=== PATIENT | female | born 1950 | race Two or more races ===

== ENCOUNTER 2019-04-02 21:27 | Inpatient (IN) | payer MEDICARE, MEDICAID ==
[~2019-04-02] VITALS: Ht 154.9 cm; Wt 44.5 kg
[2019-04-02 21:29] VITALS: BP 145/71
--- NOTE | 2019-04-02 22:30 | Diagnostic Imaging Report ---
Indication: Altered mental status Technique: Contiguous 5 mm thick transaxial imaging of the head obtained in a Siemens Sensation [address] scanner. Soft tissue and bone windows generated. Automatic Exposure Control was utilized. Total Dose length Product (DLP): [address] Dose Index Volume (CTDIvol): 70.38 mGy Comparison: none Findings: There is mild prominence of the ventricles, basal cisterns, and cerebral sulci consistent with atrophy. Mild, nonspecific, white matter hypoattenuation is noted throughout the brain consistent with chronic small vessel disease. There is a suggestion of a mild hypodense extra-axial collections over the cerebral convexities bilaterally. These may be old subdural hematomas. There is no associated mass effect or edema. There is no midline shift, edema, acute hemorrhage, mass effect are identified. Bones are unremarkable. Right globe is abnormal with peripheral thickening and absence of the lens. Correlate clinically. Impression: No acute intracranial bleed, mass effect or edema. 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 (Minor discrepancy with stat rad) Mild atrophy of the brain. Nonspecific white matter hypoattenuation probably due to chronic small vessel disease. [facility] has communicated the preliminary results to the Emergency Department. There are no significant discrepancies. The CT scanner at [facility] is accredited by the [employer] and the scans are performed using dose optimization techniques as appropriate to a performed exam including Automatic Exposure control.
[2019-04-02 22:32] LABS: BASOPHILS % (AUTO) 0.8 % (0.0-2.0); EOSINOPHILS % (AUTO) 0.5 % (0.0-3.0); HEMATOCRIT 34.4 % (37.0-47.0); HEMOGLOBIN 12.7 G/DL (12.0-16.0); LYMPHOCYTES % (AUTO) 25.1 % (20.0-45.0); MEAN CORPUSCULAR VOLUME 80 FL (80-99); MONOCYTES % (AUTO) 5.5 % (1.0-10.0); NEUTROPHILS % (AUTO) 68.1 % (45.0-75.0); PLATELET COUNT 147 K/UL (150-450); RED BLOOD COUNT 4.31 M/UL (4.20-5.40); RED CELL DISTRIBUTION WIDTH 10.3 % (11.6-14.8); WHITE BLOOD COUNT 5.1 K/UL (4.8-10.8)
[2019-04-02] MEDS ORDERED: LORazepam Inj 2mg/ml 1ml ONE (22:53)
[2019-04-02 22:55] LABS: ALANINE AMINOTRANSFERASE 26 U/L (12-78); ALBUMIN 3.7 G/DL (3.4-5.0); ALBUMIN/GLOBULIN RATIO 1.1 (1.0-2.7); ALKALINE PHOSPHATASE 84 U/L (46-116); ANION GAP 16 mmol/L (5-15); ASPARTATE AMINO TRANSFERASE 11 U/L (15-37); BILIRUBIN,TOTAL 0.7 MG/DL (0.2-1.0); BLOOD UREA NITROGEN 20 mg/dL (7-18); CALCIUM 9.2 MG/DL (8.5-10.1); CARBON DIOXIDE 23 MMOL/L (21-32); CHLORIDE 101 MMOL/L (98-107); CKMB 1.2 NG/ML (0.0-3.6); CREATINE KINASE 43 U/L (26-308); CREATININE 1.2 MG/DL (0.55-1.30); POTASSIUM 3.5 MMOL/L (3.5-5.1); SODIUM 139 MMOL/L (136-145)
[2019-04-02 23:00] VITALS: BP 132/103
[2019-04-02] MEDS ORDERED: levETIRAcetam 1,000mg/NS100ml 100 ML IVPB ONE (23:00)
[2019-04-02] MEDS ORDERED: LORazepam Inj 2mg/ml 1ml IV ONE (23:00)
[2019-04-02] MEDS ORDERED: Insulin Human Regular 100units/ml 3ml IV ONE (23:30)
[2019-04-03] VITALS (27 sets, daily range): BP systolic 68–113; BP diastolic 19–67
[2019-04-03 00:47] LABS: APPEARANCE,URINE CLEAR; BILIRUBIN, URINE NEGATIVE (NEGATIVE); COLOR,URINE PALE YELLOW; GLUCOSE, URINE (UA) 4+ (NEGATIVE); KETONES,URINE 3+ (NEGATIVE); LEUKOCYTE ESTERASE ,URINE NEGATIVE (NEGATIVE); NITRITE,URINE NEGATIVE (NEGATIVE); PH,URINE 5 (4.5-8.0); PROTEIN,URINE NEGATIVE (NEGATIVE); UROBILINOGEN,URINE NORMAL MG/DL (0.0-1.0)
[2019-04-03] MEDS ORDERED: METFORMIN HCL500 M1 ORAL (00:47)
[2019-04-03] MEDS: D5 1/2NS 1,000 ML IV SCH ×2 (03:30→05:09)
--- NOTE | 2019-04-03 03:32 | Emergency Room Report ---
History of Present Illness General Chief Complaint: Abnormal Labs Source: Family Member, EMS Present Illness HPI 68-year-old female presents ED for evaluation. Brought in by EMS from home. Granddaughter at bedside states that patient has been altered since this afternoon. Appears confused. Has bruising to her face. States that she fell a few days ago. Accu-Chek critically high. History of diabetes was recently switch from insulin to metformin. No repeated fevers or chills. No reported chest pain or shortness of breath. No other aggravating or relieving factors. No other associated symptoms Allergies: Coded Allergies: No Known Allergies (Unverified , 04/02/19) Patient History Past Medical History: DM, HTN Past Surgical History: none Pertinent Family History: none Social History: Denies: smoking, alcohol use, drug use Last Menstrual Period: n/a Now: No Immunizations: UTD Reviewed Nursing Documentation: PMH: Agreed; PSxH: Agreed Nursing Documentation-PMH Past Medical History: No History, Except For Hx Hypertension: Yes Review of Systems All Other Systems: limited Physical Exam Vital Signs Date Time Temp Pulse Resp B/P (MAP) Pulse Ox O2 Delivery O2 Flow Rate FiO2 04/02/19 21:22 94 16 145/71 (95) 99 Room Air 04/02/19 23:00 3.0 04/03/19 01:33 98.2 Sp02 EP Interpretation: reviewed, normal General Appearance: cachetic, lethargic, other Head: normocephalic, other - brusing to face Eyes: bilateral eye normal inspection, bilateral eye PERRL ENT: normal ENT inspection Neck: normal inspection Respiratory: chest non-tender, lungs clear, normal breath sounds, speaking full sentences Cardiovascular #1: regular rate, rhythm, no edema Gastrointestinal: normal bowel sounds, non tender, soft, non-distended, no guarding, no rebound Rectal: deferred Genitourinary: no CVA tenderness Musculoskeletal: normal inspection Neurologic: other - lethargic Psychiatric: other - lethargic Skin: other - see nursing notes Lymphatic: normal inspection Procedures Critical Care Time Critical Care Time i. I feel this is a highly complex case requiring extensive working including EKG/Rhythm strip, Xray/CT/US, Blood/urine lab work, repeat exams while in ED, and administration of strong opiates/narcotics for pain control, admission to hospital or close patient follow up. Total time: 75 min bedside evaluation and treatment excludes procedures (EKG). Reason for critical care: AMS, DKA, seizures Possible complications: hypotension, hypertension, [place], shock, arrhythmias, metabolic acidosis, end organ damage, respiratory failure. Interventions: Labs, IV fluids, EKG, chest x-ray, CT head, Keppra, Ativan, insulin bolus, insulin drip Course: Presented with altered mental status. Accu-Chek critically high. Bruising to face. CT head negative. Glucose greater than 500 with acidosis. Likely DKA. Patient had new onset seizure in ED. Given Ativan and Keppra. Insulin bolus and insulin drip started Consultations: nursing staff, EMS, family Performed by: Dr Manning Tolerated well condition = critical j. because of unstable vital signs this patient had a condition that could potentially threaten life or limb. I feel this is a critical patient who required my full attention while patient was considered critical. Total Critical Care Time excluding procedures was greater than 75 minutes Medical Decision Making Diagnostic Impression: Primary Impression: DKA (diabetic ketoacidoses) Qualified Codes: E13.10 - Other specified diabetes mellitus with ketoacidosis without coma Additional Impressions: Altered mental state Qualified Codes: R41.82 - Altered mental status, unspecified New onset seizure ER Course Hospital Course 68-year-old female presenting to ED with altered mental status, glucometer critically high Differential diagnoses include: ETOH/drug ingestion, sepsis, DKA Clinical course Patient placed on stretcher. On cardiac rehab nurse. After initial history and physical I ordered labs, IVFS, EKG, CXR, CT Head Labs-glucose greater than 500, anion gap elevated, bicarbonate low, no leukocytosis, hb/hct stable EKG - NSR, twave inversions in lateral leads Chest x-ray unremarkable CT Head - no acute process. heterogenous material noted in posterior aspect of R globe. mass vs hemorrhage. lens absent Tonic-clonic seizure in ED. Witnessed by nursing. Granddaughter states that there is been no prior seizure activity for this patient. Given Ativan and Keppra IV. insulin bolus given, insulin drip started Case discussed with Dr. Guevara and he agreed to accept the patient to his service for further care and support i. I feel this is a highly complex case requiring extensive working including EKG/Rhythm strip, Xray/CT/US, Blood/urine lab work, repeat exams while in ED, and administration of strong opiates/narcotics for pain control, admission to hospital or close patient follow up. j. because of unstable vital signs this patient had a condition that could potentially threaten life or limb. I feel this is a critical patient who required my full attention while patient was considered critical. Total Critical Care Time excluding procedures was greater than 75 minutes diagnosis - DKA , AMS, new onset seizures admitted to ICU in critical condition Labs Test 04/02/19 22:00 04/02/19 22:55 04/03/19 00:37 White Blood Count 5.1 K/UL (4.8-10.8) Red Blood Count 4.31 M/UL (4.20-5.40) Hemoglobin 12.7 G/DL (12.0-16.0) Hematocrit 34.4 % (37.0-47.0) Mean Corpuscular Volume 80 FL (80-99) Mean Corpuscular Hemoglobin 29.4 PG (27.0-31.0) Mean Corpuscular Hemoglobin Concent 36.9 G/DL (32.0-36.0) Red Cell Distribution Width 10.3 % (11.6-14.8) Platelet Count 147 K/UL (150-450) Mean Platelet Volume 8.0 FL (6.5-10.1) Neutrophils (%) (Auto) 68.1 % (45.0-75.0) Lymphocytes (%) (Auto) 25.1 % (20.0-45.0) Monocytes (%) (Auto) 5.5 % (1.0-10.0) Eosinophils (%) (Auto) 0.5 % (0.0-3.0) Basophils (%) (Auto) 0.8 % (0.0-2.0) Sodium Level 139 MMOL/L (136-145) Potassium Level 3.5 MMOL/L (3.5-5.1) Chloride Level 101 MMOL/L (98-107) Carbon Dioxide Level 23 MMOL/L (21-32) Anion Gap 16 mmol/L (5-15) Blood Urea Nitrogen 20 mg/dL (7-18) Creatinine 1.2 MG/DL (0.55-1.30) Estimat Glomerular Filtration Rate 44.8 mL/min (>60) Glucose Level 599 MG/DL (74-106) Lactic Acid Level 1.20 mmol/L (0.4-2.0) Calcium Level 9.2 MG/DL (8.5-10.1) Total Bilirubin 0.7 MG/DL (0.2-1.0) Aspartate Amino Transf (AST/SGOT) 11 U/L (15-37) Alanine Aminotransferase (ALT/SGPT) 26 U/L (12-78) Alkaline Phosphatase 84 U/L (46-116) Total Creatine Kinase 43 U/L (26-308) Creatine Kinase MB 1.2 NG/ML (0.0-3.6) Creatine Kinase MB Relative Index 2.7 Troponin I 0.000 ng/mL (0.000-0.056) Pro-B-Type Natriuretic Peptide 186 pg/mL (0-125) Total Protein 7.1 G/DL (6.4-8.2) Albumin 3.7 G/DL (3.4-5.0) Globulin 3.4 g/dL Albumin/Globulin Ratio 1.1 (1.0-2.7) Acetone Level Positive-small (NEGATIVE) Arterial Blood pH 7.294 (7.350-7.450) Arterial Blood Partial Pressure CO2 32.4 mmHg (35.0-45.0) Arterial Blood Partial Pressure O2 167.8 mmHg (75.0-100.0) Arterial Blood HCO3 15.4 mmol/L (22.0-26.0) Arterial Blood Oxygen Saturation 98.5 % (95-100) Arterial Blood Base Excess -10.0 (-2-2) Britton Test Positive Urine Color Pale yellow Urine Appearance Clear Urine pH 5 (4.5-8.0) Urine Specific [place] 1.010 (1.005-1.035) Urine Protein Negative (NEGATIVE) Urine Glucose (UA) 4+ (NEGATIVE) Urine Ketones 3+ (NEGATIVE) Urine Blood Negative (NEGATIVE) Urine Nitrite Negative (NEGATIVE) Urine Bilirubin Negative (NEGATIVE) Urine Urobilinogen Normal MG/DL (0.0-1.0) Urine Leukocyte Esterase Negative (NEGATIVE) EKG Diagnostic Results Rate: normal Rhythm: NSR ST Segments: other - twave inversions in lateral leads ASA given to the pt in ED: No Rhythm Strip Diag. Results EP Interpretation: yes Rhythm: NSR, no PVC's, no ectopy Chest X-Ray Diagnostic Results Chest X-Ray Diagnostic Results : Chest X-Ray Ordered: Yes # of Views/Limited/Complete: 1 View Indication: Other EP Interpretation: Yes Interpretation: no consolidation, no effusion, no pneumothorax, no acute cardiopulmonary disease Impression: No acute disease Electronically Signed by: Electronically signed by Phil Manning MD CT/MRI/US Diagnostic Results CT/MRI/US Diagnostic Results : Imaging Test Ordered: CT Head Impression CT HEAD Without Contrast: No acute intracranial process. Lobulated thickening from hemorrhage or mass lesion in the posterior aspect of the right globe. The right lens is absent. Last Vital Signs Date Time Temp Pulse Resp B/P (MAP) Pulse Ox O2 Delivery O2 Flow Rate FiO2 04/03/19 02:37 98.2 100 15 105/63 98 Room Air 04/03/19 01:33 2.0 Status: improved Disposition: ADMITTED INPATIENT Condition: Critical Referrals: NON PHYSICIAN (PCP) Phil Manning MD Apr 03, 2019 03:32
[2019-04-03 04:29] LABS: ALANINE AMINOTRANSFERASE 21 U/L (12-78); ALKALINE PHOSPHATASE 70 U/L (46-116); ANION GAP 9 mmol/L (5-15); ASPARTATE AMINO TRANSFERASE 14 U/L (15-37); BILIRUBIN,TOTAL 0.5 MG/DL (0.2-1.0); BLOOD UREA NITROGEN 13 mg/dL (7-18); CALCIUM 8.2 MG/DL (8.5-10.1); CARBON DIOXIDE 24 MMOL/L (21-32); CHLORIDE 113 MMOL/L (98-107); CREATININE 0.8 MG/DL (0.55-1.30); POTASSIUM 2.8 MMOL/L (3.5-5.1); SODIUM 146 MMOL/L (136-145)
[2019-04-03] MEDS ORDERED: D5 1/2NS w/KCl 40meq 1000ml 1,000 ML IV SCH (04:45)
[2019-04-03] MEDS ORDERED: Insulin Rate Change 1 Each MISC PRN (06:45)
[2019-04-03] MEDS ORDERED: Insulin Human Regular 100units/ml 3ml IV PRN ×2 (06:45)
[2019-04-03 07:33] LABS: ANION GAP 11 mmol/L (5-15); BLOOD UREA NITROGEN 10 mg/dL (7-18); CALCIUM 7.9 MG/DL (8.5-10.1); CARBON DIOXIDE 21 MMOL/L (21-32); CHLORIDE 113 MMOL/L (98-107); CREATININE 0.7 MG/DL (0.55-1.30); SODIUM 145 MMOL/L (136-145)
[2019-04-03] MEDS ORDERED: LORazepam Inj 2mg/ml 1ml IV PRN (08:00)
[2019-04-03] MEDS ORDERED: D5 1/2NS w/KCl 20mEq 1,000 ML IV SCH (08:00)
--- NOTE | 2019-04-03 09:15 | History and Physical Report ---
DATE OF ADMISSION: 04/02/2019 CHIEF COMPLAINT: Altered mental status, seizures, and diabetic ketoacidosis. HISTORY OF PRESENT ILLNESS: The patient is a pleasant 68-year-old female. She has a history of diabetes and seizure disorder, was brought in by family members with complaints of altered mental status. According to family members, they believe she has not been taking her medications for the last two days. In the ER, she apparently had two seizures. She was noted to be in DKA. She was started on insulin drip and is now admitted to intensive care unit. She is currently sedated as she did receive Ativan for her seizures. PAST MEDICAL HISTORY: As above. PAST SURGICAL HISTORY: None. CURRENT MEDICATIONS: Reconciled and reviewed. ALLERGIES: None. FAMILY HISTORY: Significant for diabetes. SOCIAL HISTORY: Negative for tobacco, ethanol, or drugs. REVIEW OF SYSTEMS: Unobtainable as the patient is currently sleeping and difficult to arouse after receiving Ativan. PHYSICAL EXAMINATION: VITAL SIGNS: Temperature 97.4, pulse 100, respirations 21, and blood pressure 113/67. GENERAL: The patient is a well-developed, thin female, in no apparent distress. HEART: Regular rate and rhythm. LUNGS: Clear. ABDOMEN: Soft, nontender, and nondistended. EXTREMITIES: Without clubbing, cyanosis, or edema. LABORATORY DATA: Labs showed sodium 139, potassium 3.5, chloride 101, bicarb 23, BUN 20, and creatinine 1.2. Glucose is 600. Lactic acid was 1.2. ASSESSMENT: This is a 68-year-old female admitted with complaints of diabetic ketoacidosis and seizures, possibly secondary to uncontrolled diabetes. PLAN: 1. Continue insulin drip. 2. Monitor electrolytes. 3. Continue IV hydration. 4. Continue Keppra. 5. Plan of care was discussed with the patient's family. Sang Vieira M.D. DR: ERICKA JOB#: [id number] CC:
[2019-04-03] MEDS: Pantoprazole Inj IVP SCH (10:25)
[2019-04-03] MEDS: Levemir Flexpen SUBQ SCH ×2 (10:27→20:14)
[2019-04-03] MEDS: levETIRAcetam 500mg/NS100ml 100 ML IVPB SCH ×2 (10:35→20:14)
--- NOTE | 2019-04-03 12:00 | Diagnostic Imaging Report ---
Indication: Dyspnea Comparison: None A single view chest radiograph was obtained. Findings: No definite infiltrate or pulmonary vascular congestion identified. The heart is enlarged. The aorta is mildly enlarged consistent with atherosclerotic vascular disease. The bones are osteopenic. Impression: No acute disease
[2019-04-03 12:15] LABS: ANION GAP 8 mmol/L (5-15); BLOOD UREA NITROGEN 10 mg/dL (7-18); CALCIUM 8.1 MG/DL (8.5-10.1); CARBON DIOXIDE 24 MMOL/L (21-32); CHLORIDE 112 MMOL/L (98-107); CREATININE 0.7 MG/DL (0.55-1.30); POTASSIUM 2.8 MMOL/L (3.5-5.1); SODIUM 145 MMOL/L (136-145)
[2019-04-03] MEDS ORDERED: NovoLOG Insulin Flexpen SUBQ SCH (16:50)
[2019-04-03] MEDS: NovoLOG Insulin Flexpen SUBQ SCH ×2 (17:50→20:15)
--- NOTE | 2019-04-03 18:15 | Consultation ---
DATE OF CONSULTATION: 04/03/2019 ENDOCRINOLOGY CONSULTATION CONSULTING PHYSICIAN: Hernesto Byrne M.D. REFERRING PHYSICIAN: Mark Guevara M.D. REASON FOR CONSULTATION: DKA. HISTORY OF PRESENT ILLNESS: The patient is a 68-year-old female with history of diabetes, on metformin therapy, presents to the hospital by paramedics with altered mental status and weakness. Granddaughter noted altered mental status yesterday afternoon though the patient has been feeling dizzy for a few days, had a fall and has a bruise on her face. Accu-Chek was critically elevated at home. Previously, the patient was on insulin and recently switched to metformin. No fever or chills. Upon presentation, he was noted to be in diabetic ketoacidosis with a positive acetone level as well as anion gap of 16. The patient was admitted to the ICU and started on insulin drip. Endocrinology was consulted. PAST MEDICAL HISTORY: 1. Diabetes. 2. Hypertension. PAST SURGICAL HISTORY: None. FAMILY HISTORY: Noncontributory. SOCIAL HISTORY: No smoking, alcohol, or drug use. REVIEW OF SYSTEMS: Difficult to obtain. PHYSICAL EXAMINATION: GENERAL: The patient is lethargic. VITAL SIGNS: Blood pressure 145/71, pulse 94, respiratory rate of 18, and temperature of 98. HEENT: Pupils reactive to light. Sclerae is nonicteric. NECK: No JVD. HEART: Regular. LUNGS: Clear. ABDOMEN: Positive bowel sounds. EXTREMITIES: Trace edema. LABORATORY DATA: Sodium 139, potassium 3.5, chloride 101, bicarb 24, BUN 20, and creatinine 1.2. Anion gap of 16. Glucose 599. Lactic acid negative. WBC 5, hemoglobin 12, hematocrit 34.4, and platelets of 147,000. IMPRESSION: 1. DKA, mild. 2. Diabetes, out of control. PLAN: 1. Continue insulin drip for now until the anion gap closes. 2. Follow the electrolytes and replete accordingly. 3. Once the anion gap is closed, we will start the patient on basal bolus insulin regimen using Levemir and NovoLog insulin. Hypoglycemia protocol is ordered. I will follow the patient closely during the hospital stay. Thank you, Dr. Guevara, for the courtesy of this consultation. Hernesto Byrne M.D. DR: TAMI JOB#: [id number] CC: [place]
--- NOTE | 2019-04-03 20:45 | Consultation ---
DATE OF CONSULTATION: 04/02/2019 CARDIOLOGY CONSULTATION CONSULTING PHYSICIAN: Mark Guevara M.D. REQUESTING PHYSICIAN: Sang Vieira M.D. REASON FOR CONSULTATION: Acute myocardial ischemia in the setting of diabetic ketoacidosis. HISTORY OF PRESENT ILLNESS: This is a 68-year-old female, who is brought into the hospital emergency room by paramedics from home. The patient apparently has been increasingly withdrawn and confused and lethargic this afternoon. She apparently fell a few days ago and was found to have bruises over the left side of her face. The patient says she tripped and denies loss of consciousness. The patient was recently switched from insulin to metformin for management of her diabetes. She has not complained of chest pain or shortness of breath. In the emergency room, she had a witnessed seizure of tonoclonic type. She was given antiseizure therapy and had a CAT scan of the brain that revealed no acute process. She is to be admitted to the intensive care unit. I have been asked to assist with cardiovascular care. PAST MEDICAL HISTORY: Includes type 2 diabetes mellitus, hypertension with hypertensive heart disease, and osteoarthritis. PHYSICAL EXAMINATION: VITAL SIGNS: Blood pressure 113/67, pulse 100, respirations 21, and afebrile. GENERAL: Thin and frail, bruising obvious over the left face from nose to chin. HEENT: There is no difficulty with jaw movements. NECK: Supple. LUNGS: Clear. CARDIAC: Regular rhythm and rate. Normal S1, S2 with a fourth heart sound. ABDOMEN: Soft and nontender. EXTREMITIES: Good pulses. No edema. NEUROLOGIC: Reveals depressed affect and response time, but no focality. LABORATORY DATA: Reviewed. EKG with sinus rhythm and nonspecific ST-T wave changes. IMPRESSION: 1. Diabetic ketoacidosis. 2. Acute myocardial ischemia. 3. New onset seizures. 4. Recent fall with facial trauma. 5. Dehydration. 6. Hyponatremia. 7. . 8. Hypokalemia. 9. Mild protein-calorie malnutrition. 10. Type 2 diabetes mellitus, poorly controlled. 11. Metabolic encephalopathy. PLAN: 1. Continue Keppra. 2. Hypotonic IV fluid hydration. 3. Potassium replacement. 4. Check magnesium. 5. Insulin drip with subsequent transition to long-acting insulin. 6. Protein supplement. 7. Consider further imaging of the face if symptoms warrant. 8. DVT prophylaxis. Mark Guevara M.D. DR: PARAMJIT JOB#: [id number] CC:
[2019-04-04] VITALS (21 sets, daily range): BP systolic 95–125; BP diastolic 52–75
[2019-04-04] MEDS: NovoLOG Insulin Flexpen SUBQ SCH ×5 (00:26→16:45)
--- NOTE | 2019-04-04 06:50 | General Progress Note ---
Assessment/Plan Problem List: (1) New onset seizure ICD Codes: R56.9 - Unspecified convulsions SNOMED: 36402709, 32877799 (2) DKA (diabetic ketoacidoses) ICD Codes: E11.10 - Type 2 diabetes mellitus with ketoacidosis without coma SNOMED: 815126222, [id number] Qualifiers: Qualified Codes: E13.10 - Other specified diabetes mellitus with ketoacidosis without coma (3) Altered mental state ICD Codes: R41.82 - Altered mental status, unspecified SNOMED: 259685891, 89951608 Qualifiers: Qualified Codes: R41.82 - Altered mental status, unspecified Assessment/Plan: DKA resolved glucose values are stable continue Levemir 6 units bid continue NISS every 4 hours Subjective Allergies: Coded Allergies: No Known Allergies (Unverified , 04/02/19) Subjective events noted glucose values stable off insulin gtt Item Value Date Time Bedside Blood Glucose 99 mg/dl 04/04/19 0500 Bedside Blood Glucose 122 mg/dl H 04/04/19 0100 Bedside Blood Glucose 183 mg/dl H 04/03/19 2100 Bedside Blood Glucose 167 mg/dl H 04/03/19 1750 Bedside Blood Glucose 147 mg/dl H 04/03/19 1212 Bedside Blood Glucose 181 mg/dl H 04/03/19 1033 Bedside Blood Glucose 191 mg/dl H 04/03/19 0600 Objective Last 24 Hour Vital Signs Date Time Temp Pulse Resp B/P (MAP) Pulse Ox O2 Delivery O2 Flow Rate FiO2 04/04/19 06:00 74 13 99/52 (68) 97 04/04/19 05:00 87 13 119/65 (83) 96 04/04/19 04:00 Room Air 04/04/19 04:00 99.2 80 12 111/58 (75) 98 04/04/19 04:00 77 04/04/19 03:00 84 12 113/64 (80) 98 04/04/19 02:00 85 11 95/60 (72) 98 04/04/19 01:00 86 11 107/58 (74) 97 04/04/19 00:00 Room Air 04/04/19 00:00 84 04/04/19 00:00 98.6 85 10 98/52 (67) 97 04/03/19 23:00 93 10 89/49 (62) 97 04/03/19 22:03 90 11 93/53 (66) 97 04/03/19 22:01 91 11 81/52 (62) 97 04/03/19 22:00 91 11 81/52 (62) 97 04/03/19 21:43 90 14 87/50 (62) 98 04/03/19 21:41 87 18 73/47 (56) 98 04/03/19 21:30 85 12 71/47 (55) 97 04/03/19 21:05 87 13 81/46 (58) 97 04/03/19 21:00 88 12 82/48 (59) 97 04/03/19 20:00 98.4 88 12 101/54 (70) 97 04/03/19 20:00 Room Air 04/03/19 20:00 85 04/03/19 19:00 94 12 102/51 (68) 98 04/03/19 18:00 93 17 95/62 (73) 97 04/03/19 17:00 92 14 95/63 (74) 98 04/03/19 16:00 97.8 86 11 99/50 (66) 98 04/03/19 16:00 Room Air 04/03/19 15:47 89 04/03/19 15:00 89 20 101/60 (74) 99 04/03/19 14:00 76 13 94/37 (56) 97 04/03/19 13:00 86 12 91/37 (55) 98 04/03/19 13:00 87 12 91/37 (55) 97 04/03/19 12:30 90 12 92/37 (55) 98 04/03/19 12:00 Room Air 04/03/19 12:00 97.7 83 12 68/40 (49) 98 04/03/19 11:39 87 04/03/19 11:00 88 14 86/23 (44) 98 04/03/19 10:00 91 13 86/19 (41) 98 04/03/19 09:00 98 13 88/28 (48) 99 04/03/19 08:00 Room Air 04/03/19 08:00 97 04/03/19 08:00 98.3 101 20 95/47 (63) 98 04/03/19 07:00 101 16 113/67 (82) 99 Intake and Output 9/12/19 9/13/19 18:59 06:59 Intake Total 1433.36 ml 2675 ml Output Total 835 ml 415 ml Balance 598.36 ml 2260 ml IV Total 1423.36 ml 2675 ml Other 10 ml Output Urine Total 835 ml 415 ml # Bowel Movements 3 Laboratory Tests 04/03/19 07:05: Sodium Level 145, Potassium Level 3.0L, Chloride Level 113H, Carbon Dioxide Level 21, Anion Gap 11, Blood Urea Nitrogen 10, Creatinine 0.7, Estimat Glomerular Filtration Rate > 60, Glucose Level 208H, Hemoglobin A1c 14.4H, Calcium Level 7.9L 04/03/19 11:45: Sodium Level 145, Potassium Level 2.8L, Chloride Level 112H, Carbon Dioxide Level 24, Anion Gap 8, Blood Urea Nitrogen 10, Creatinine 0.7, Estimat Glomerular Filtration Rate > 60, Glucose Level 146H, Calcium Level 8.1L Height (Feet): 5 Height (Inches): 1.00 Weight (Pounds): 88 General Appearance: lethargic Neck: normal alignment Cardiovascular: normal rate Respiratory/Chest: decreased breath sounds Abdomen: normal bowel sounds Objective Current Medications Medications (Trade) Dose Ordered Sig/Daja Route PRN Reason Start Time Stop Time Status Last Admin Dose Admin Dextrose (Dextrose 50%) 25 ml Q30M PRN IV Hypoglycemia 04/03/19 13:15 05/03/19 13:14 Dextrose (Dextrose 50%) 50 ml Q30M PRN IV Hypoglycemia 04/03/19 13:15 05/03/19 13:14 Insulin Aspart (NovoLOG) Q4HR SUBQ 04/03/19 17:00 05/03/19 16:59 04/04/19 00:26 Insulin Detemir (Levemir) 6 units Q12HR SUBQ 04/03/19 09:00 05/03/19 08:59 04/03/19 20:14 Levetiracetam 100 ml @ 400 mls/hr Q12HR IVPB 04/03/19 09:00 05/03/19 08:59 04/03/19 20:14 Lorazepam (Ativan 2mg/ml 1ml) 1 mg Q4H PRN IV For Seizures 04/03/19 08:00 04/10/19 07:59 Pantoprazole (Protonix) 40 mg DAILY IVP 04/03/19 09:00 05/03/19 08:59 04/03/19 10:25 Sodium Chloride 1,000 ml @ 150 mls/hr Q6H40M IV 04/03/19 17:15 05/03/19 17:14 04/04/19 04:52 Hernesto Byrne MD Apr 04, 2019 06:50
[2019-04-04 07:08] LABS: BASOPHILS % (AUTO) 0.8 % (0.0-2.0); EOSINOPHILS % (AUTO) 1.3 % (0.0-3.0); HEMATOCRIT 30.8 % (37.0-47.0); HEMOGLOBIN 10.9 G/DL (12.0-16.0); MEAN CORPUSCULAR VOLUME 83 FL (80-99); MONOCYTES % (AUTO) 5.5 % (1.0-10.0); NEUTROPHILS % (AUTO) 73.4 % (45.0-75.0); PLATELET COUNT 151 K/UL (150-450); RED CELL DISTRIBUTION WIDTH 10.9 % (11.6-14.8); WHITE BLOOD COUNT 8.3 K/UL (4.8-10.8)
[2019-04-04 07:20] LABS: ANION GAP 7 mmol/L (5-15); BLOOD UREA NITROGEN 4 mg/dL (7-18); CALCIUM 7.7 MG/DL (8.5-10.1); CARBON DIOXIDE 23 MMOL/L (21-32); CHLORIDE 116 MMOL/L (98-107); CREATININE 0.7 MG/DL (0.55-1.30); POTASSIUM 2.9 MMOL/L (3.5-5.1); SODIUM 146 MMOL/L (136-145)
[2019-04-04] MEDS: Pantoprazole Inj IVP SCH (08:10)
[2019-04-04] MEDS: levETIRAcetam 500mg/NS100ml 100 ML IVPB SCH ×2 (08:11→22:38)
[2019-04-04] MEDS: Levemir Flexpen SUBQ SCH ×2 (08:13→22:38)
--- NOTE | 2019-04-04 15:01 | General Progress Note ---
Assessment/Plan Problem List: (1) DKA (diabetic ketoacidoses) ICD Codes: E11.10 - Type 2 diabetes mellitus with ketoacidosis without coma SNOMED: 616049498, 96740921 Qualifiers: Qualified Codes: E13.10 - Other specified diabetes mellitus with ketoacidosis without coma (2) Altered mental state ICD Codes: R41.82 - Altered mental status, unspecified SNOMED: 685607248, 47190792 Qualifiers: Qualified Codes: R41.82 - Altered mental status, unspecified (3) New onset seizure ICD Codes: R56.9 - Unspecified convulsions SNOMED: 45326298, 31365584 Status: stable, progressing Assessment/Plan: improving cont ivf sz rx per neuro sz precautions check tfts transfer out of icu Subjective ROS Limited/Unobtainable: No Constitutional: Reports: malaise, weakness HEENT: Reports: no symptoms Cardiovascular: Reports: no symptoms Respiratory: Reports: cough Gastrointestinal/Abdominal: Reports: no symptoms Genitourinary: Reports: no symptoms Neurologic/Psychiatric: Reports: no symptoms Endocrine: Reports: no symptoms Hematologic/Lymphatic: Reports: no symptoms Allergies: Coded Allergies: No Known Allergies (Unverified , 04/02/19) All Systems: reviewed and negative except above Subjective no events. BS stable. more alert. no new complaints. no fever or chills. no sob. no szs. Bp on the low side. Objective Last 24 Hour Vital Signs Date Time Temp Pulse Resp B/P (MAP) Pulse Ox O2 Delivery O2 Flow Rate FiO2 04/04/19 14:00 79 14 99/54 (69) 04/04/19 13:00 87 21 104/75 (85) 95 04/04/19 12:00 99.0 83 16 125/68 (87) 04/04/19 12:00 89 04/04/19 12:00 Room Air 04/04/19 11:00 79 16 113/66 (82) 99 04/04/19 10:00 78 13 119/52 (74) 97 04/04/19 09:00 Room Air 04/04/19 09:00 82 15 96/66 (76) 99 04/04/19 08:00 98.9 86 16 123/70 (87) 99 04/04/19 08:00 79 04/04/19 08:00 Room Air 04/04/19 07:00 81 12 114/58 (76) 97 04/04/19 06:00 74 13 99/52 (68) 97 04/04/19 05:00 87 13 119/65 (83) 96 04/04/19 04:00 Room Air 04/04/19 04:00 99.2 80 12 111/58 (75) 98 04/04/19 04:00 77 04/04/19 03:00 84 12 113/64 (80) 98 04/04/19 02:00 85 11 95/60 (72) 98 04/04/19 01:00 86 11 107/58 (74) 97 04/04/19 00:00 Room Air 04/04/19 00:00 84 04/04/19 00:00 98.6 85 10 98/52 (67) 97 04/03/19 23:00 93 10 89/49 (62) 97 04/03/19 22:03 90 11 93/53 (66) 97 04/03/19 22:01 91 11 81/52 (62) 97 04/03/19 22:00 91 11 81/52 (62) 97 04/03/19 21:43 90 14 87/50 (62) 98 04/03/19 21:41 87 18 73/47 (56) 98 04/03/19 21:30 85 12 71/47 (55) 97 04/03/19 21:05 87 13 81/46 (58) 97 04/03/19 21:00 88 12 82/48 (59) 97 04/03/19 20:00 98.4 88 12 101/54 (70) 97 04/03/19 20:00 Room Air 04/03/19 20:00 85 04/03/19 19:00 94 12 102/51 (68) 98 04/03/19 18:00 93 17 95/62 (73) 97 04/03/19 17:00 92 14 95/63 (74) 98 04/03/19 16:00 97.8 86 11 99/50 (66) 98 04/03/19 16:00 Room Air 04/03/19 15:47 89 04/03/19 15:00 89 20 101/60 (74) 99 Intake and Output 04/03/19 04/04/19 19:00 07:00 Intake Total 1583.36 ml 2675 ml Output Total 860 ml 345 ml Balance 723.36 ml 2330 ml IV Total 1573.36 ml 2675 ml Other 10 ml Output Urine Total 860 ml 345 ml # Bowel Movements 3 Laboratory Tests 04/04/19 06:50: White Blood Count 8.3#, Red Blood Count 3.70L, Hemoglobin 10.9L, Hematocrit 30.8L, Mean Corpuscular Volume 83, Mean Corpuscular Hemoglobin 29.5, Mean Corpuscular Hemoglobin Concent 35.4, Red Cell Distribution Width 10.9L, Platelet Count 151, Mean Platelet Volume 9.0, Neutrophils (%) (Auto) 73.4, Lymphocytes (%) (Auto) 19.0L, Monocytes (%) (Auto) 5.5, Eosinophils (%) (Auto) 1.3, Basophils (%) (Auto) 0.8, Sodium Level 146H, Potassium Level 2.9L, Chloride Level 116H, Carbon Dioxide Level 23, Anion Gap 7, Blood Urea Nitrogen 4L, Creatinine 0.7, Estimat Glomerular Filtration Rate > 60, Glucose Level 108H , Calcium Level 7.7L Height (Feet): 5 Height (Inches): 1.00 Weight (Pounds): 88 General Appearance: WD/WN, alert Neck: supple Cardiovascular: normal rate, regular rhythm Respiratory/Chest: chest wall non-tender, lungs clear, normal breath sounds Abdomen: normal bowel sounds, non tender, soft, no organomegaly Edema: no edema noted Arm (L), no edema noted Arm (R), no edema noted Leg (L), no edema noted Leg (R), no edema noted Pedal (L), no edema noted Pedal (R), no edema noted Generalized Neurologic: 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
[2019-04-04] MEDS ORDERED: NS 500ML ONE (15:52)
[2019-04-04] MEDS ORDERED: Tubing IV Secondary IV ONE (15:52)
[2019-04-04] MEDS ORDERED: LORazepam Inj 2mg/ml 1ml IV PRN (17:27)
[2019-04-04] MEDS ORDERED: NovoLOG Insulin Flexpen SUBQ SCH (21:00)
[2019-04-05] VITALS: BP 123/68
--- NOTE | 2019-04-05 02:15 | Progress Note ---
DATE: 04/04/2019 CARDIOLOGY PROGRESS NOTE SUBJECTIVE: Glucose control has improved. She is off the insulin drip. She is more alert. She has some pain on her left face at the site of her contusion due to a fall several days prior to admission. Blood pressure parameters remain on the low side of normal. Oxygen saturations are adequate at 95% to 99% on room air. PHYSICAL EXAMINATION: VITAL SIGNS: Temperature max 99, blood pressure 99/54 to 125/68, heart rate 79 to 89, and respiratory rate 14 to 21. HEENT: Left facial ecchymosis. NECK: Supple. LUNGS: Clear. CARDIAC: Regular. Normal S1 and S2. ABDOMEN: Soft. EXTREMITIES: No edema. LABORATORY DATA: White count 8.3 and hemoglobin 10.9. Sodium ___, potassium 3.9, bicarb 23, BUN 4, and creatinine 0.7. IMPRESSION: 1. Dehydration. 2. . 3. Hypokalemia. 4. . 5. Resolved DKA. 6. Facial contusion. 7. Acute myocardial ischemia, resolved. 8. New onset seizures. 9. Metabolic encephalopathy, improving. PLAN: 1. Hypotonic IV fluids. 2. Potassium replacement. 3. Recheck magnesium. 4. Titrate insulin. 5. Seizure precautions. 6. Followup thyroid panel. 7. Recheck laboratory studies and adjust IV fluids accordingly. Mark Guevara M.D. DR: Anna JOB#: [id number] CC:
[2019-04-05 04:00] VITALS: BP 111/50
[2019-04-05] MEDS: NovoLOG Insulin Flexpen SUBQ SCH ×4 (05:56→22:13)
[2019-04-05 08:00] VITALS: BP 98/53
[2019-04-05] MEDS: Pantoprazole Inj IVP SCH (08:16)
[2019-04-05] MEDS: levETIRAcetam 500mg/NS100ml 100 ML IVPB SCH ×2 (08:16→20:34)
[2019-04-05 08:17] LABS: CHLORIDE 112 MMOL/L (98-107)
[2019-04-05] MEDS: Levemir Flexpen SUBQ SCH ×2 (08:17→22:12)
[2019-04-05 09:41] LABS: ALANINE AMINOTRANSFERASE 13 U/L (12-78); ALBUMIN 2.3 G/DL (3.4-5.0); ALBUMIN/GLOBULIN RATIO 0.8 (1.0-2.7); ALKALINE PHOSPHATASE 59 U/L (46-116); ANION GAP 9 mmol/L (5-15); ASPARTATE AMINO TRANSFERASE 22 U/L (15-37); BILIRUBIN,TOTAL 1.5 MG/DL (0.2-1.0); BLOOD UREA NITROGEN 2 mg/dL (7-18); CALCIUM 7.7 MG/DL (8.5-10.1); CARBON DIOXIDE 25 MMOL/L (21-32); CREATININE 0.7 MG/DL (0.55-1.30); SODIUM 145 MMOL/L (136-145)
[2019-04-05 09:43] LABS: BILIRUBIN,DIRECT 0.2 MG/DL (0.0-0.3)
--- NOTE | 2019-04-05 10:13 | General Progress Note ---
Assessment/Plan Problem List: (1) DKA (diabetic ketoacidoses) ICD Codes: E11.10 - Type 2 diabetes mellitus with ketoacidosis without coma SNOMED: 191791626, 92737722 Qualifiers: Qualified Codes: E13.10 - Other specified diabetes mellitus with ketoacidosis without coma (2) Altered mental state ICD Codes: R41.82 - Altered mental status, unspecified SNOMED: 022937512, 69868961 Qualifiers: Qualified Codes: R41.82 - Altered mental status, unspecified (3) New onset seizure ICD Codes: R56.9 - Unspecified convulsions SNOMED: 56400628, 86698835 Status: stable, progressing Assessment/Plan: improving cont ivf montor bs diabetes rx per endo sz rx per neuro sz precautions replace k Subjective ROS Limited/Unobtainable: No Constitutional: Reports: malaise, weakness HEENT: Reports: no symptoms Cardiovascular: Reports: no symptoms Respiratory: Reports: no symptoms Gastrointestinal/Abdominal: Reports: no symptoms Genitourinary: Reports: no symptoms Neurologic/Psychiatric: Reports: no symptoms Endocrine: Reports: no symptoms Hematologic/Lymphatic: Reports: no symptoms Allergies: Coded Allergies: No Known Allergies (Unverified , 04/02/19) All Systems: reviewed and negative except above Subjective no events. BS labile. trending up. more alert. no new complaints. no fever or chills. no sob. no szs. Bp on the low side. Objective Last 24 Hour Vital Signs Date Time Temp Pulse Resp B/P (MAP) Pulse Ox O2 Delivery O2 Flow Rate FiO2 04/05/19 09:00 Room Air 04/05/19 08:00 82 04/05/19 08:00 97.3 81 20 98/53 (68) 98 04/05/19 04:00 99.0 78 18 111/50 (70) 99 04/05/19 04:00 76 04/05/19 00:00 91 04/05/19 00:00 98.1 88 18 123/68 (86) 98 04/04/19 21:00 Room Air 04/04/19 20:00 79 04/04/19 20:00 98.7 87 18 115/61 (79) 100 04/04/19 18:00 98.1 80 17 118/66 (83) 97 04/04/19 17:33 98.1 80 17 118/66 (83) 97 04/04/19 17:00 83 13 111/56 (74) 95 04/04/19 16:00 75 04/04/19 16:00 98.8 74 13 106/56 (73) 97 04/04/19 16:00 Room Air 04/04/19 15:00 83 14 111/58 (75) 97 04/04/19 14:00 79 14 99/54 (69) 04/04/19 13:00 87 21 104/75 (85) 95 04/04/19 12:00 99.0 83 16 125/68 (87) 04/04/19 12:00 89 04/04/19 12:00 Room Air 04/04/19 11:00 79 16 113/66 (82) 99 Intake and Output 04/04/19 04/05/19 18:59 06:59 Intake Total 1930 ml 1200 ml Output Total 190 ml 1400 ml Balance 1740 ml -200 ml Intake Oral 480 ml 200 ml IV Total 1450 ml 1000 ml Output Urine Total 190 ml 1400 ml # Bowel Movements 4 Laboratory Tests 04/05/19 06:13: Sodium Level 145, Potassium Level 3.0L, Chloride Level 112H, Carbon Dioxide Level 25, Anion Gap 9, Blood Urea Nitrogen 2L, Creatinine 0.7, Estimat Glomerular Filtration Rate > 60, Glucose Level 213#H, Calcium Level 7.7L, Total Bilirubin 1.5H, Direct Bilirubin 0.2, Aspartate Amino Transf (AST/SGOT) 22, Alanine Aminotransferase (ALT/SGPT) 13, Alkaline Phosphatase 59, Total Protein 5.1L, Albumin 2.3L, Globulin 2.8, Albumin/Globulin Ratio 0.8L, Thyroid Stimulating Hormone (TSH) 1.277 Height (Feet): 5 Height (Inches): 1.00 Weight (Pounds): 92 Objective General Appearance: WD/WN, alert Neck: supple Cardiovascular: normal rate, regular rhythm Respiratory/Chest: chest wall non-tender, lungs clear, normal breath sounds Abdomen: normal bowel sounds, non tender, soft, no organomegaly Edema: no edema noted Arm (L), no edema noted Arm (R), no edema noted Leg (L), no edema noted Leg (R), no edema noted Pedal (L), no edema noted Pedal (R), no edema noted Generalized 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
[2019-04-05 12:00] VITALS: BP 108/52
--- NOTE | 2019-04-05 13:14 | Cardiology Report ---
APPROVED REPORT EKG Measurement Heart [id number] MS 126P65 [id number] Normal sinus rhythm Prolonged QT Abnormal ECG
[2019-04-05] MEDS ORDERED: Tubing IV Secondary IV ONE (15:55)
[2019-04-05 16:00] VITALS: BP 126/66
[2019-04-05] MEDS: D5 1/2NS w/KCl 20mEq 1,000 ML IV SCH (20:33)
[2019-04-05 21:00] VITALS: BP 125/90
--- NOTE | 2019-04-05 23:15 | Progress Note ---
DATE: 04/05/2019 CARDIOLOGY PROGRESS NOTE SUBJECTIVE: The patient was seen and evaluated. Granddaughter at bedside, who assisted with translation if needed. The patient has no complaints of dizziness, chest pain, or shortness of breath. No seizures noted since admission. OBJECTIVE: VITAL SIGNS: Blood pressure 98/53, heart rate 81, and respiratory rate 20. Subsequently, blood pressure parameter 126/66. Glucose trending upwards. SKIN: Bruising and ecchymosis over the left part of the face near the chin. NECK: Supple. LUNGS: Clear. CARDIAC: Regular. Normal S1 and S2 with a fourth heart sound. ABDOMEN: Soft and nontender. EXTREMITIES: Without edema. LABORATORY DATA: Labs reviewed. Sodium 145, potassium 3, bicarbonate 25, BUN 2, and creatinine 0.7. Albumin 2.3. TSH is normal. IMPRESSION: 1. Dehydration with hyponatremia, improving. 2. Hypokalemia. 3. DKA. 4. Possible seizure prior to admission. 5. Facial trauma per granddaughter sustained with nonsyncopal fall, but that is mechanical fall. PLAN: 1. Hypotonic IV fluids. 2. Titrate insulin. 3. Replace potassium. 4. Follow up lab studies. 5. Consider neuro evaluation. Mark Guevara M.D. DR: ANASTASIA JOB#: [id number] CC:
[2019-04-06] VITALS: BP 119/63
[2019-04-06 04:00] VITALS: BP 122/65
[2019-04-06] MEDS: NovoLOG Insulin Flexpen SUBQ SCH ×4 (05:55→20:44)
--- NOTE | 2019-04-06 07:17 | General Progress Note ---
Assessment/Plan Problem List: (1) New onset seizure ICD Codes: R56.9 - Unspecified convulsions SNOMED: 04415967, 52114677 (2) DKA (diabetic ketoacidoses) ICD Codes: E11.10 - Type 2 diabetes mellitus with ketoacidosis without coma SNOMED: 297102851, 61652071 Qualifiers: Qualified Codes: E13.10 - Other specified diabetes mellitus with ketoacidosis without coma (3) Altered mental state ICD Codes: R41.82 - Altered mental status, unspecified SNOMED: 414063996, 06210581 Qualifiers: Qualified Codes: R41.82 - Altered mental status, unspecified Status: stable, progressing Assessment/Plan: glucose values elevated increase Levemir to 10 units bid add Starlix 60 mg ac tid continue NISS ac / hs Subjective Allergies: Coded Allergies: No Known Allergies (Unverified , 04/02/19) All Systems: reviewed and negative except above Subjective events noted glucose values on higher side Item Value Date Time Bedside Blood Glucose 291 mg/dl H 04/06/19 0620 Bedside Blood Glucose 253 mg/dl H 04/05/19 2213 Bedside Blood Glucose 235 mg/dl H 04/05/19 1706 Bedside Blood Glucose 234 mg/dl H 04/05/19 1143 Bedside Blood Glucose 159 mg/dl H 04/05/19 0817 Objective Last 24 Hour Vital Signs Date Time Temp Pulse Resp B/P (MAP) Pulse Ox O2 Delivery O2 Flow Rate FiO2 04/06/19 04:00 98.0 88 20 122/65 (84) 96 04/06/19 04:00 83 04/06/19 00:00 85 04/06/19 00:00 97.6 85 20 119/63 (81) 95 04/05/19 21:00 Room Air 04/05/19 21:00 98.2 87 20 125/90 (102) 97 04/05/19 20:00 84 04/05/19 16:00 85 04/05/19 16:00 97.9 86 20 126/66 (86) 98 04/05/19 12:00 98.2 83 21 108/52 (70) 99 04/05/19 12:00 84 04/05/19 09:00 Room Air 04/05/19 08:00 82 04/05/19 08:00 97.3 81 20 98/53 (68) 98 Intake and Output 04/05/19 04/06/19 19:00 07:00 Intake Total 450 ml Balance 450 ml Intake Oral 450 ml # Voids 3 2 # Bowel Movements 2 1 Laboratory Tests 04/05/19 23:00: Stool Occult Blood [Pending] Height (Feet): 5 Height (Inches): 1.00 Weight (Pounds): 92 General Appearance: no apparent distress Neck: normal alignment Cardiovascular: normal rate Respiratory/Chest: lungs clear Abdomen: normal bowel sounds Objective Current Medications Medications (Trade) Dose Ordered Sig/Daja Route PRN Reason Start Time Stop Time Status Last Admin Dose Admin Dextrose (Dextrose 50%) 25 ml Q30M PRN IV Hypoglycemia 04/04/19 17:45 05/03/19 13:14 Dextrose (Dextrose 50%) 50 ml Q30M PRN IV Hypoglycemia 04/04/19 17:45 05/03/19 13:14 Dextrose/ Electrolytes 1,000 ml @ 75 mls/hr [id number] IV 04/05/19 20:30 05/05/19 20:29 04/05/19 20:33 Insulin Aspart (NovoLOG) AC+HS SUBQ 04/05/19 06:30 05/03/19 16:59 04/06/19 05:55 Insulin Detemir (Levemir) 6 units Q12HR SUBQ 04/04/19 21:00 05/03/19 08:59 04/05/19 22:12 Levetiracetam 100 ml @ 400 mls/hr Q12HR IVPB 04/04/19 21:00 05/03/19 08:59 04/05/19 20:34 Lorazepam (Ativan 2mg/ml 1ml) 1 mg Q4H PRN IV For Seizures 04/04/19 17:27 04/11/19 17:26 Pantoprazole (Protonix) 40 mg DAILY IVP 04/05/19 09:00 05/03/19 08:59 04/05/19 08:16 Hernesto Byrne MD Apr 06, 2019 07:17
[2019-04-06 07:47] LABS: BASOPHILS % (AUTO) 0.5 % (0.0-2.0); HEMATOCRIT 27.8 % (37.0-47.0); HEMOGLOBIN 9.8 G/DL (12.0-16.0); MEAN CORPUSCULAR VOLUME 84 FL (80-99); MONOCYTES % (AUTO) 7.3 % (1.0-10.0); NEUTROPHILS % (AUTO) 65.1 % (45.0-75.0); PLATELET COUNT 130 K/UL (150-450); RED CELL DISTRIBUTION WIDTH 10.9 % (11.6-14.8); WHITE BLOOD COUNT 6.4 K/UL (4.8-10.8)
[2019-04-06 08:00] VITALS: BP 102/64
[2019-04-06 08:00] LABS: ALANINE AMINOTRANSFERASE 12 U/L (12-78); ALBUMIN 2.3 G/DL (3.4-5.0); ALBUMIN/GLOBULIN RATIO 0.8 (1.0-2.7); ALKALINE PHOSPHATASE 61 U/L (46-116); ANION GAP 6 mmol/L (5-15); ASPARTATE AMINO TRANSFERASE 15 U/L (15-37); BILIRUBIN,TOTAL 1.5 MG/DL (0.2-1.0); BLOOD UREA NITROGEN 11 mg/dL (7-18); CALCIUM 7.8 MG/DL (8.5-10.1); CARBON DIOXIDE 27 MMOL/L (21-32); CHLORIDE 109 MMOL/L (98-107); CREATININE 0.8 MG/DL (0.55-1.30); POTASSIUM 3.4 MMOL/L (3.5-5.1); SODIUM 142 MMOL/L (136-145)
[2019-04-06 08:02] LABS: BILIRUBIN,DIRECT 0.2 MG/DL (0.0-0.3)
[2019-04-06] MEDS: Nateglinide 60mg tab ORAL SCH ×3 (08:14→17:12)
[2019-04-06] MEDS: Pantoprazole Inj IVP SCH (08:16)
[2019-04-06] MEDS: levETIRAcetam 500mg/NS100ml 100 ML IVPB SCH ×2 (08:17→20:41)
[2019-04-06] MEDS: Levemir Flexpen SUBQ SCH ×2 (08:18→20:45)
[2019-04-06] MEDS: D5 1/2NS w/KCl 20mEq 1,000 ML IV SCH ×2 (10:01→23:24)
--- NOTE | 2019-04-06 10:11 | General Progress Note ---
Assessment/Plan Problem List: (1) DKA (diabetic ketoacidoses) ICD Codes: E11.10 - Type 2 diabetes mellitus with ketoacidosis without coma SNOMED: 207108782, 76300392 Qualifiers: Qualified Codes: E13.10 - Other specified diabetes mellitus with ketoacidosis without coma (2) Altered mental state ICD Codes: R41.82 - Altered mental status, unspecified SNOMED: 999220444, 80946058 Qualifiers: Qualified Codes: R41.82 - Altered mental status, unspecified (3) New onset seizure ICD Codes: R56.9 - Unspecified convulsions SNOMED: 75010878, 06905337 Status: stable, progressing Assessment/Plan: improving- eating well dc ivf montor bs diabetes rx per endo sz rx eeg sz precautions replace k and mg Subjective ROS Limited/Unobtainable: No Constitutional: Reports: malaise, weakness HEENT: Reports: no symptoms Cardiovascular: Reports: no symptoms Respiratory: Reports: no symptoms Gastrointestinal/Abdominal: Reports: no symptoms Genitourinary: Reports: no symptoms Neurologic/Psychiatric: Reports: no symptoms Endocrine: Reports: no symptoms Hematologic/Lymphatic: Reports: no symptoms Allergies: Coded Allergies: No Known Allergies (Unverified , 04/02/19) All Systems: reviewed and negative except above Subjective no events. BS labile. trending up. more alert. no new complaints. no fever or chills. no sob. no szs. Bp better Objective Last 24 Hour Vital Signs Date Time Temp Pulse Resp B/P (MAP) Pulse Ox O2 Delivery O2 Flow Rate FiO2 04/06/19 08:00 97.6 93 18 102/64 (77) 98 04/06/19 04:00 98.0 88 20 122/65 (84) 96 04/06/19 04:00 83 04/06/19 00:00 85 04/06/19 00:00 97.6 85 20 119/63 (81) 95 04/05/19 21:00 Room Air 04/05/19 21:00 98.2 87 20 125/90 (102) 97 04/05/19 20:00 84 04/05/19 16:00 85 04/05/19 16:00 97.9 86 20 126/66 (86) 98 04/05/19 12:00 98.2 83 21 108/52 (70) 99 04/05/19 12:00 84 Intake and Output 04/05/19 04/06/19 19:00 07:00 Intake Total 450 ml Balance 450 ml Intake Oral 450 ml # Voids 3 2 # Bowel Movements 2 1 Laboratory Tests 04/05/19 23:00: Stool Occult Blood Negative 04/06/19 05:15: White Blood Count 6.4, Red Blood Count 3.30L, Hemoglobin 9.8L, Hematocrit 27.8L , Mean Corpuscular Volume 84, Mean Corpuscular Hemoglobin 29.7, Mean Corpuscular Hemoglobin Concent 35.3, Red Cell Distribution Width 10.9L, Platelet Count 130L, Mean Platelet Volume 7.9, Neutrophils (%) (Auto) 65.1, Lymphocytes (%) (Auto) 25.0, Monocytes (%) (Auto) 7.3, Eosinophils (%) (Auto) 2.0, Basophils (%) (Auto) 0.5, Sodium Level 142, Potassium Level 3.4L, Chloride Level 109H, Carbon Dioxide Level 27, Anion Gap 6, Blood Urea Nitrogen 11, Creatinine 0.8, Estimat Glomerular Filtration Rate > 60, Glucose Level 290H, Calcium Level 7.8L, Magnesium Level 1.4L, Total Bilirubin 1.5H, Direct Bilirubin 0.2, Aspartate Amino Transf (AST/SGOT) 15, Alanine Aminotransferase ( ALT/SGPT) 12, Alkaline Phosphatase 61, Pro-B-Type Natriuretic Peptide 2180H, Total Protein 5.1L, Albumin 2.3L, Globulin 2.8, Albumin/Globulin Ratio 0.8L Height (Feet): 5 Height (Inches): 1.00 Weight (Pounds): 92 Objective General Appearance: WD/WN, alert Neck: supple Cardiovascular: normal rate, regular rhythm Respiratory/Chest: chest wall non-tender, lungs clear, normal breath sounds Abdomen: normal bowel sounds, non tender, soft, no organomegaly Edema: no edema noted Arm (L), no edema noted Arm (R), no edema noted Leg (L), no edema noted Leg (R), no edema noted Pedal (L), no edema noted Pedal (R), no edema noted Generalized Neurologic: 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
[2019-04-06 12:00] VITALS: BP 98/47
[2019-04-06 16:00] VITALS: BP 104/51
[2019-04-06 20:00] VITALS: BP 113/71
[2019-04-07] VITALS: BP 119/88
--- NOTE | 2019-04-07 01:30 | Progress Note ---
DATE: 04/06/2019 CARDIOLOGY PROGRESS NOTE SUBJECTIVE: The patient has rising blood sugar levels. She has no complaints. No seizures noted. She is on Keppra. According to family members, she has a longstanding history of seizures and has been noncompliant with antiseizure therapy. OBJECTIVE: VITAL SIGNS: Blood pressure 102/64, heart rate 93, and respiratory rate 18. LUNGS: Clear. CARDIAC: Regular. Normal S1 and S2. ABDOMEN: Soft. EXTREMITIES: No edema. IMPRESSION: 1. Status post DKA, resolved. 2. Myocardial ischemia. 3. Hypotension, recovered. 4. Insulin-requiring diabetes mellitus with labile blood glucose. 5. Seizure disorder. 6. Electrolyte abnormalities. 7. Metabolic encephalopathy, recovered. 8. Nonsyncopal fall with left facial contusion. PLAN: 1. EEG pending. 2. Off IV fluids. 3. Titrate insulin. 4. Replace electrolytes. 5. DVT prophylaxis. Mark Guevara M.D. DR: JARRETT JOB#: [id number] CC:
[2019-04-07 04:00] VITALS: BP 114/68
[2019-04-07] MEDS: NovoLOG Insulin Flexpen SUBQ SCH ×7 (05:56→20:39)
[2019-04-07] MEDS: Nateglinide 60mg tab ORAL SCH (06:00)
--- NOTE | 2019-04-07 06:34 | General Progress Note ---
Assessment/Plan Problem List: (1) New onset seizure ICD Codes: R56.9 - Unspecified convulsions SNOMED: 43590638, 15959101 (2) DKA (diabetic ketoacidoses) ICD Codes: E11.10 - Type 2 diabetes mellitus with ketoacidosis without coma SNOMED: 464220342, 51297517 Qualifiers: Qualified Codes: E13.10 - Other specified diabetes mellitus with ketoacidosis without coma (3) Altered mental state ICD Codes: R41.82 - Altered mental status, unspecified SNOMED: 472832059, 17453047 Qualifiers: Qualified Codes: R41.82 - Altered mental status, unspecified Status: stable, progressing Assessment/Plan: increase Levemir to 15 units bid DC Starlix 60 mg ac tid add Novolog 8 units ac tid continue NISS ac / hs Subjective Allergies: Coded Allergies: No Known Allergies (Unverified , 04/02/19) All Systems: reviewed and negative except above Subjective events noted glucose values elevated despite addition of Starlix and increased Levemir dose Item Value Date Time Bedside Blood Glucose 267 mg/dl H 04/07/19 0615 Bedside Blood Glucose 383 mg/dl H 04/06/19 2100 Bedside Blood Glucose 373 mg/dl H 04/06/19 1714 Bedside Blood Glucose 310 mg/dl H 04/06/19 1145 Bedside Blood Glucose 233 mg/dl H 04/06/19 0818 Bedside Blood Glucose 291 mg/dl H 04/06/19 0620 Objective Last 24 Hour Vital Signs Date Time Temp Pulse Resp B/P (MAP) Pulse Ox O2 Delivery O2 Flow Rate FiO2 04/07/19 04:00 98.5 92 18 114/68 (83) 98 04/07/19 04:00 96 04/07/19 00:00 98.2 94 16 119/88 (98) 98 04/07/19 00:00 98 04/06/19 21:00 Room Air 04/06/19 20:00 97 04/06/19 20:00 98.1 95 16 113/71 (85) 96 04/06/19 16:00 98.3 85 18 104/51 (68) 96 04/06/19 16:00 89 04/06/19 12:00 78 04/06/19 12:00 98.2 85 18 98/47 (64) 96 04/06/19 09:00 Room Air 04/06/19 08:00 91 04/06/19 08:00 97.6 93 18 102/64 (77) 98 Intake and Output 04/06/19 04/07/19 19:00 07:00 Intake Total 730 ml Output Total 400 ml Balance 330 ml Intake Oral 730 ml Output Urine Total 400 ml # Voids 1 2 # Bowel Movements 2 Height (Feet): 5 Height (Inches): 1.00 Weight (Pounds): 92 General Appearance: no apparent distress Neck: normal alignment Cardiovascular: normal rate Respiratory/Chest: lungs clear Abdomen: normal bowel sounds Objective Current Medications Medications (Trade) Dose Ordered Sig/Daja Route PRN Reason Start Time Stop Time Status Last Admin Dose Admin Dextrose (Dextrose 50%) 25 ml Q30M PRN IV Hypoglycemia 04/04/19 17:45 05/03/19 13:14 Dextrose (Dextrose 50%) 50 ml Q30M PRN IV Hypoglycemia 04/04/19 17:45 05/03/19 13:14 Dextrose/ Electrolytes 1,000 ml @ 75 mls/hr [id number] IV 04/05/19 20:30 05/05/19 20:29 04/06/19 23:24 Insulin Aspart (NovoLOG) AC+HS SUBQ 04/05/19 06:30 05/03/19 16:59 04/07/19 05:56 Insulin Detemir (Levemir) 10 units Q12HR SUBQ 04/06/19 09:00 05/03/19 08:59 04/06/19 20:45 Levetiracetam 100 ml @ 400 mls/hr Q12HR IVPB 04/04/19 21:00 05/03/19 08:59 04/06/19 20:41 Lorazepam (Ativan 2mg/ml 1ml) 1 mg Q4H PRN IV For Seizures 04/04/19 17:27 04/11/19 17:26 Nateglinide (Starlix) 60 mg TIAC ORAL 04/06/19 07:30 05/06/19 07:29 04/07/19 06:00 Pantoprazole (Protonix) 40 mg DAILY IVP 04/05/19 09:00 05/03/19 08:59 04/06/19 08:16 Hernesto Byrne MD Apr 07, 2019 06:34
[2019-04-07 07:34] LABS: ALANINE AMINOTRANSFERASE 17 U/L (12-78); ALBUMIN 2.6 G/DL (3.4-5.0); ALKALINE PHOSPHATASE 66 U/L (46-116); ASPARTATE AMINO TRANSFERASE 16 U/L (15-37); CALCIUM 8.6 MG/DL (8.5-10.1); CHLORIDE 108 MMOL/L (98-107); CREATININE 0.8 MG/DL (0.55-1.30); POTASSIUM 4.1 MMOL/L (3.5-5.1); SODIUM 140 MMOL/L (136-145)
[2019-04-07 08:00] VITALS: BP 121/66
[2019-04-07 08:05] LABS: BILIRUBIN,TOTAL 0.9 MG/DL (0.2-1.0); BLOOD UREA NITROGEN 15 mg/dL (7-18); CARBON DIOXIDE 25 MMOL/L (21-32)
[2019-04-07] MEDS: levETIRAcetam 500mg/NS100ml 100 ML IVPB SCH ×2 (08:29→20:37)
[2019-04-07] MEDS: Pantoprazole Inj IVP SCH (08:29)
[2019-04-07] MEDS: Levemir Flexpen SUBQ SCH ×2 (08:31→20:40)
--- NOTE | 2019-04-07 08:55 | Cardiology Report ---
APPROVED REPORT EXAM: Two-dimensional and M-mode echocardiogram with Doppler and color Doppler. INDICATION Arrhythmia M-Mode DIMENSIONS IVSd0.8 (0.7-1.1cm)Left Atrium (MM)2.9 (1.6-4.0cm) LVDd3.8 (3.5-5.6cm)Aortic Root3.2 (2.0-3.7cm) PWd0.9 (0.7-1.1cm)Aortic Cusp Exc.1.9 (1.5-2.0cm) IVSs1.1 cm LVDs2.2 (2.5-4.0cm) PWs1.0 cm Technically difficult study due to poor acoustical windows. Normal left ventricular chamber size, systolic function and wall motion to extent visualized. Left ventricular ejection fraction estimated to be 60 %. No evidence of left ventricular hypertrophy . Anterior Echo-free space, may be due to pericardial fat or effusion. All other cardiac chamber sizes are within normal limits. Focal aortic valve sclerosis with adequate cusp excursion. Thickened mitral valve leaflets with normal excursion. Mitral annulus and aortic root calcification. Normal pulmonic valve structure. Normal tricuspid valve structure. IVC at normal size with slightly physiologic collapse. A color flow and spectral Doppler study was performed and revealed: No aortic regurgitation.. Trace mitral regurgitation. Mitral diastolic velocities suggest reduced left ventricular relaxation c/w mild LV diastolic dysfunction (Grade I ). Trace tricuspid regurgitation. Tricuspid systolic velocities suggests peak right ventricular systolic pressure of 8mmHg.
--- NOTE | 2019-04-07 11:17 | Cardiology Report ---
APPROVED REPORT EKG Measurement Heart [id number] [id number] Normal sinus rhythm Low voltage QRS Possible Lateral infarct, age undetermined Abnormal ECG
[2019-04-07] MEDS: D5 1/2NS w/KCl 20mEq 1,000 ML IV SCH (11:45)
[2019-04-07 12:00] VITALS: BP 126/62
--- NOTE | 2019-04-07 14:06 | General Progress Note ---
Assessment/Plan Problem List: (1) DKA (diabetic ketoacidoses) ICD Codes: E11.10 - Type 2 diabetes mellitus with ketoacidosis without coma SNOMED: 355309982, 38991333 Qualifiers: Qualified Codes: E13.10 - Other specified diabetes mellitus with ketoacidosis without coma (2) Altered mental state ICD Codes: R41.82 - Altered mental status, unspecified SNOMED: 907590053, 70453339 Qualifiers: Qualified Codes: R41.82 - Altered mental status, unspecified (3) New onset seizure ICD Codes: R56.9 - Unspecified convulsions SNOMED: 16181435, 00804871 Status: stable, progressing Assessment/Plan: improving- eating well dc ivf montor bs diabetes rx per endo sz rx eeg sz precautions Subjective ROS Limited/Unobtainable: No Constitutional: Reports: malaise, weakness HEENT: Reports: no symptoms Cardiovascular: Reports: no symptoms Respiratory: Reports: no symptoms Gastrointestinal/Abdominal: Reports: no symptoms Genitourinary: Reports: no symptoms Neurologic/Psychiatric: Reports: no symptoms Endocrine: Reports: no symptoms Hematologic/Lymphatic: Reports: no symptoms Allergies: Coded Allergies: No Known Allergies (Unverified , 04/02/19) All Systems: reviewed and negative except above Subjective no events. BS labile. trending up. more alert. no new complaints. no fever or chills. no sob. no szs. Bp better Objective Last 24 Hour Vital Signs Date Time Temp Pulse Resp B/P (MAP) Pulse Ox O2 Delivery O2 Flow Rate FiO2 04/07/19 12:00 97.5 89 22 126/62 (83) 96 04/07/19 09:00 Room Air 04/07/19 08:00 97.9 100 18 121/66 (84) 98 04/07/19 08:00 90 04/07/19 04:00 98.5 92 18 114/68 (83) 98 04/07/19 04:00 96 04/07/19 00:00 98.2 94 16 119/88 (98) 98 04/07/19 00:00 98 04/06/19 21:00 Room Air 04/06/19 20:00 97 04/06/19 20:00 98.1 95 16 113/71 (85) 96 04/06/19 16:00 98.3 85 18 104/51 (68) 96 04/06/19 16:00 89 Intake and Output 04/06/19 04/07/19 19:00 07:00 Intake Total 730 ml Output Total 400 ml Balance 330 ml Intake Oral 730 ml Output Urine Total 400 ml # Voids 1 2 # Bowel Movements 2 Laboratory Tests 04/07/19 06:15: Sodium Level 140, Potassium Level 4.1, Chloride Level 108H, Carbon Dioxide Level 25, Blood Urea Nitrogen 15, Creatinine 0.8, Estimat Glomerular Filtration Rate > 60, Glucose Level 290H, Calcium Level 8.6, Total Bilirubin 0.9, Aspartate Amino Transf (AST/SGOT) 16, Alanine Aminotransferase (ALT/SGPT) 17, Alkaline Phosphatase 66, Total Protein 5.7L, Albumin 2.6L, Globulin 3.1 Height (Feet): 5 Height (Inches): 1.00 Weight (Pounds): 92 Objective General Appearance: WD/WN, alert Neck: supple Cardiovascular: normal rate, regular rhythm Respiratory/Chest: chest wall non-tender, lungs clear, normal breath sounds Abdomen: normal bowel sounds, non tender, soft, no organomegaly Edema: no edema noted Arm (L), no edema noted Arm (R), no edema noted Leg (L), no edema noted Leg (R), no edema noted Pedal (L), no edema noted Pedal (R), no edema noted 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
[2019-04-07 16:00] VITALS: BP 98/55
[2019-04-07 20:00] VITALS: BP 105/59
--- NOTE | 2019-04-07 23:23 | Diagnostic Imaging Report ---
APPROVED REPORT CPT Code: 22453 Present Symptoms Lower Extremity Pain: Bilateral Comments: Screening BILATERAL: Imaging reveals a patent deep venous system bilaterally. There is no evidence of thrombus within the common femoral, superficial femoral, popliteal or tibial segments. The greater saphenous veins are within normal limits. Doppler indicates normal spontaneous flow within these segments.
[2019-04-08] VITALS: BP 134/75
--- NOTE | 2019-04-08 | Progress Note ---
DATE: 04/07/2019 SUBJECTIVE: The patient is requiring insulin injections. She is unable to administer them. Discussions were undertaken with family members. Daughter is able to give insulin and has been in the past; however, there may be times when she is not available. OBJECTIVE: VITAL SIGNS: Blood pressure 126/62, pulse 89, respiratory rate 22. LUNGS: Clear. CARDIAC: Regular. Normal S1, S2. ABDOMEN: Soft. EXTREMITIES: No edema. IMPRESSION: 1. Diabetic ketoacidosis. 2. Seizure disorder. 3. Functional decline. 4. Secondary sinus tachycardia. 5. Hypovolemia and dehydration, corrected. PLAN: 1. Discontinue IV fluids. 2. Adjust insulin regimen. 3. No antihypertensives at this time. 4. Maintain antiseizure therapy. 5. Stress compliance as an outpatient. 6. We will need home health. 7. Discharge plan tomorrow if all remain stable. Mark Guevara M.D. DR: Anna JOB#: [id number] CC:
[2019-04-08 04:00] VITALS: BP 107/68
[2019-04-08] MEDS: NovoLOG Insulin Flexpen SUBQ SCH ×7 (06:47→21:00)
--- NOTE | 2019-04-08 07:01 | General Progress Note ---
Assessment/Plan Problem List: (1) New onset seizure ICD Codes: R56.9 - Unspecified convulsions SNOMED: 38562139, 16624842 (2) DKA (diabetic ketoacidoses) ICD Codes: E11.10 - Type 2 diabetes mellitus with ketoacidosis without coma SNOMED: 186460121, 54348515 Qualifiers: Qualified Codes: E13.10 - Other specified diabetes mellitus with ketoacidosis without coma (3) Altered mental state ICD Codes: R41.82 - Altered mental status, unspecified SNOMED: 854149556, 94860737 Qualifiers: Qualified Codes: R41.82 - Altered mental status, unspecified Status: stable, progressing Assessment/Plan: increase Levemir to 20 units bid increase Novolog to 12 units ac tid continue NISS ac / hs Subjective Allergies: Coded Allergies: No Known Allergies (Unverified , 04/02/19) All Systems: reviewed and negative except above Subjective events noted glucose values elevated despite addition of mealtime insulin Item Value Date Time Bedside Blood Glucose 303 mg/dl H 04/08/19 0647 Bedside Blood Glucose 207 mg/dl H 04/07/19 2100 Bedside Blood Glucose 353 mg/dl H 04/07/19 1716 Bedside Blood Glucose 218 mg/dl H 04/07/19 1147 Bedside Blood Glucose 198 mg/dl H 04/07/19 0831 Bedside Blood Glucose 267 mg/dl H 04/07/19 0644 Objective Last 24 Hour Vital Signs Date Time Temp Pulse Resp B/P (MAP) Pulse Ox O2 Delivery O2 Flow Rate FiO2 04/08/19 04:00 97.4 86 16 107/68 (81) 97 04/08/19 04:00 87 04/08/19 00:00 96.8 97 18 134/75 (94) 100 04/08/19 00:00 98 04/07/19 21:00 Room Air 04/07/19 20:00 97.3 91 18 105/59 (74) 96 04/07/19 20:00 94 04/07/19 16:00 89 04/07/19 16:00 98.7 93 22 98/55 (69) 98 04/07/19 12:00 97.5 89 22 126/62 (83) 96 04/07/19 12:00 97 04/07/19 09:00 Room Air 04/07/19 08:00 97.9 100 18 121/66 (84) 98 04/07/19 08:00 90 Intake and Output 04/07/19 04/08/19 19:00 07:00 Intake Total 240 ml Balance 240 ml Intake Oral 240 ml # Voids 4 # Bowel Movements 2 Height (Feet): 5 Height (Inches): 1.00 Weight (Pounds): 91 General Appearance: no apparent distress Neck: normal alignment Cardiovascular: normal rate Respiratory/Chest: lungs clear Abdomen: normal bowel sounds Objective Current Medications Medications (Trade) Dose Ordered Sig/Daja Route PRN Reason Start Time Stop Time Status Last Admin Dose Admin Dextrose (Dextrose 50%) 25 ml Q30M PRN IV Hypoglycemia 04/07/19 06:45 05/07/19 06:44 Dextrose (Dextrose 50%) 50 ml Q30M PRN IV Hypoglycemia 04/07/19 06:45 05/07/19 06:44 Insulin Aspart (NovoLOG) AC+HS SUBQ 04/05/19 06:30 05/03/19 16:59 04/08/19 06:47 Insulin Aspart (NovoLOG) 8 units NOVOTIAC SUBQ 04/07/19 06:45 05/07/19 06:44 04/08/19 06:47 Insulin Detemir (Levemir) 10 units Q12HR SUBQ 04/06/19 09:00 05/03/19 08:59 04/07/19 20:40 Levetiracetam 100 ml @ 400 mls/hr Q12HR IVPB 04/04/19 21:00 05/03/19 08:59 04/07/19 20:37 Lorazepam (Ativan 2mg/ml 1ml) 1 mg Q4H PRN IV For Seizures 04/04/19 17:27 04/11/19 17:26 Pantoprazole (Protonix) 40 mg ACBREAKFAST ORAL 04/08/19 06:30 05/08/19 06:29 04/08/19 06:46 Hernesto Byrne MD Apr 08, 2019 07:00
[2019-04-08 08:00] VITALS: BP 91/53
[2019-04-08] MEDS: levETIRAcetam 500mg/NS100ml 100 ML IVPB SCH ×2 (08:47→21:31)
[2019-04-08] MEDS: Levemir Flexpen SUBQ SCH ×2 (09:01→21:34)
[2019-04-08 12:00] VITALS: BP 116/64
--- NOTE | 2019-04-08 12:43 | General Progress Note ---
Assessment/Plan Problem List: (1) DKA (diabetic ketoacidoses) ICD Codes: E11.10 - Type 2 diabetes mellitus with ketoacidosis without coma SNOMED: 242018798, 39205087 Qualifiers: Qualified Codes: E13.10 - Other specified diabetes mellitus with ketoacidosis without coma (2) Altered mental state ICD Codes: R41.82 - Altered mental status, unspecified SNOMED: 577328407, 73567040 Qualifiers: Qualified Codes: R41.82 - Altered mental status, unspecified (3) New onset seizure ICD Codes: R56.9 - Unspecified convulsions SNOMED: 72090473, 05999541 Status: stable, progressing Assessment/Plan: improving- eating well dc ivf montor bs diabetes rx per endo sz rx eeg sz precautions dc planning with home health Subjective ROS Limited/Unobtainable: No Constitutional: Reports: weakness HEENT: Reports: no symptoms Cardiovascular: Reports: no symptoms Respiratory: Reports: no symptoms Gastrointestinal/Abdominal: Reports: no symptoms Genitourinary: Reports: no symptoms Neurologic/Psychiatric: Reports: seizure Endocrine: Reports: no symptoms Hematologic/Lymphatic: Reports: no symptoms Allergies: Coded Allergies: No Known Allergies (Unverified , 04/02/19) All Systems: reviewed and negative except above Subjective no complaints. no cp/sob. no dizziness. no szs. BS mostly controlled. Objective Last 24 Hour Vital Signs Date Time Temp Pulse Resp B/P (MAP) Pulse Ox O2 Delivery O2 Flow Rate FiO2 04/08/19 09:00 Room Air 04/08/19 08:00 98.1 98 18 91/53 (66) 98 98 04/08/19 07:40 97 04/08/19 04:00 97.4 86 16 107/68 (81) 97 04/08/19 04:00 87 04/08/19 00:00 96.8 97 18 134/75 (94) 100 04/08/19 00:00 98 04/07/19 21:00 Room Air 04/07/19 20:00 97.3 91 18 105/59 (74) 96 04/07/19 20:00 94 04/07/19 16:00 89 04/07/19 16:00 98.7 93 22 98/55 (69) 98 Intake and Output 9/16/19 9/17/19 19:00 07:00 Intake Total 240 ml Balance 240 ml Intake Oral 240 ml # Voids 4 # Bowel Movements 2 Height (Feet): 5 Height (Inches): 1.00 Weight (Pounds): 91 Objective General Appearance: WD/WN, alert Neck: supple Cardiovascular: normal rate, regular rhythm Respiratory/Chest: chest wall non-tender, lungs clear, normal breath sounds Abdomen: normal bowel sounds, non tender, soft, no organomegaly Edema: no edema noted Arm (L), no edema noted Arm (R), no edema noted Leg (L), no edema noted Leg (R), no edema noted Pedal (L), no edema noted Pedal (R), no edema noted 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
[2019-04-08 16:00] VITALS: BP 96/52
--- NOTE | 2019-04-08 19:00 | Electroencephalogram ---
REQUESTING PHYSICIAN: Mark Guevara M.D. READING PHYSICIAN: Dane Mitchell M.D. DATE OF TRACIN04/07/2019. HISTORY: This EEG was performed on a 68-year-old lady with a history of an alteration in mental state associated with diabetic ketoacidosis and seizures. The purpose of this EEG was to evaluate the patient for ongoing ictal or interictal phenomena. TECHNICAL NOTE: This EEG was performed on [employer] Unit with electrodes placed on the scalp according to the international 10-20 system. [id number] and [id number] montages were used. The EEG was technically satisfactory and was performed in the awake, drowsy, and sleep states. OBSERVATIONS: In the best awake state, the background activity consisted of 9-11 Hz posteriorly predominant well-developed alpha waveforms, which attenuated on eye opening. Drowsiness was characterized by dissolution of the alpha rhythm and the appearance of slow frequencies in the 4-6 Hz theta range. Stage II sleep was characterized by further slowing of the background in the delta and theta range, the presence of vertex waves, and 14 Hz sleep spindles. No focal abnormalities or epileptiform discharges were seen. IMPRESSION: Normal awake, drowsy, and stage II sleep EEG. Dane Mitchell M.D., M.S.P.H. DR: JENNIFER JOB#: [id number] MTDD
[2019-04-08 20:00] VITALS: BP 127/59
[2019-04-09] VITALS: BP 141/87
--- NOTE | 2019-04-09 01:30 | Progress Note ---
DATE: 04/08/2019 CARDIOLOGY PROGRESS NOTE SUBJECTIVE: The patient's glucose has been more elevated. She does not know how to give herself insulin. Her daughter has given her insulin in the past. She is now on insulin before meals and long-acting drug twice a day that is 5 doses. She has no chest pain or shortness of breath. OBJECTIVE: VITAL SIGNS: Blood pressure has remained unchanged with episodes of lower range pressure 91/53 to 134/75, heart rate 86 to 98, respiratory rate 16 to 18, afebrile. LUNGS: Clear. CARDIAC: Regular. Normal S1, S2. ABDOMEN: Soft. EXTREMITIES: No edema. IMPRESSION: 1. Baseline blood pressure with asymptomatic ranges in the 90 systolic. 2. No signs of congestive heart failure. 3. Hyperglycemia, status post DKA. 4. Inability to self-administer insulin. PLAN: 1. Need to adjust insulin and it is less frequent dosing and optimize glucose control prior to discharge. 2. Maintain adequate hydration. 3. No indication for midodrine at this time. Mark Guevara M.D. DR: MATTEO JOB#: [id number] CC:
[2019-04-09 04:00] VITALS: BP 125/69
[2019-04-09] MEDS: NovoLOG Insulin Flexpen SUBQ SCH ×7 (06:38→21:45)
--- NOTE | 2019-04-09 06:45 | General Progress Note ---
Assessment/Plan Problem List: (1) New onset seizure ICD Codes: R56.9 - Unspecified convulsions SNOMED: 82033554, 16259870 (2) DKA (diabetic ketoacidoses) ICD Codes: E11.10 - Type 2 diabetes mellitus with ketoacidosis without coma SNOMED: 087943195, 64445304 Qualifiers: Qualified Codes: E13.10 - Other specified diabetes mellitus with ketoacidosis without coma (3) Altered mental state ICD Codes: R41.82 - Altered mental status, unspecified SNOMED: 758708929, 09337557 Qualifiers: Qualified Codes: R41.82 - Altered mental status, unspecified Status: stable, progressing Assessment/Plan: increase Levemir to 24 units bid continue Novolog 12 units ac tid continue NISS ac / hs Subjective Allergies: Coded Allergies: No Known Allergies (Unverified , 04/02/19) All Systems: reviewed and negative except above Subjective events noted glucose values improved but fasting still elevated Item Value Date Time Bedside Blood Glucose 293 mg/dl H 04/09/19 0638 Bedside Blood Glucose 101 mg/dl 04/08/19 2134 Bedside Blood Glucose 126 mg/dl H 04/08/19 1741 Bedside Blood Glucose 202 mg/dl H 04/08/19 1219 Bedside Blood Glucose 268 mg/dl H 04/08/19 0901 Bedside Blood Glucose 303 mg/dl H 04/08/19 0647 Objective Last 24 Hour Vital Signs Date Time Temp Pulse Resp B/P (MAP) Pulse Ox O2 Delivery O2 Flow Rate FiO2 04/09/19 04:00 116 04/09/19 04:00 97.7 88 18 125/69 (87) 98 04/09/19 00:00 111 04/09/19 00:00 98.0 92 18 141/87 (105) 98 04/08/19 21:00 Room Air 04/08/19 20:00 97.4 98 18 127/59 (81) 98 04/08/19 20:00 91 04/08/19 16:00 98.1 96 18 96/52 (67) 97 04/08/19 15:53 99 04/08/19 15:28 101 04/08/19 12:04 87 04/08/19 12:00 98.7 94 18 116/64 (81) 99 94 04/08/19 09:00 Room Air 04/08/19 08:00 98.1 98 18 91/53 (66) 98 98 04/08/19 07:40 97 Intake and Output 04/08/19 04/09/19 19:00 07:00 Intake Total 950 ml Output Total 600 ml Balance 350 ml Intake Oral 850 ml IV Total 100 ml Output Urine Total 600 ml # Voids 4 # Bowel Movements 3 Laboratory Tests 04/09/19 06:02: White Blood Count [Pending], Red Blood Count [Pending], Hemoglobin [Pending], Hematocrit [Pending], Mean Corpuscular Volume [Pending], Mean Corpuscular Hemoglobin [Pending], Mean Corpuscular Hemoglobin Concent [Pending], Red Cell Distribution Width [Pending], Platelet Count [Pending], Mean Platelet Volume [ Pending], Neutrophils (%) (Auto) [Pending], Lymphocytes (%) (Auto) [Pending], Monocytes (%) (Auto) [Pending], Eosinophils (%) (Auto) [Pending], Basophils (%) (Auto) [Pending], Sodium Level [Pending], Potassium Level [Pending], Chloride Level [Pending], Carbon Dioxide Level [Pending], Blood Urea Nitrogen [Pending], Creatinine [Pending], Estimat Glomerular Filtration Rate [Pending], Glucose Level [Pending], Calcium Level [Pending], Magnesium Level [Pending], Total Bilirubin [Pending], Aspartate Amino Transf (AST/SGOT) [Pending], Alanine Aminotransferase (ALT/SGPT) [Pending], Alkaline Phosphatase [Pending], Pro-B- Type Natriuretic Peptide [Pending], Total Protein [Pending], Albumin [Pending], Globulin [Pending] Height (Feet): 5 Height (Inches): 1.00 Weight (Pounds): 92 General Appearance: no apparent distress Neck: normal alignment Cardiovascular: normal rate Respiratory/Chest: decreased breath sounds Abdomen: normal bowel sounds Objective Current Medications Medications (Trade) Dose Ordered Sig/Daja Route PRN Reason Start Time Stop Time Status Last Admin Dose Admin Dextrose (Dextrose 50%) 25 ml Q30M PRN IV Hypoglycemia 04/07/19 06:45 05/07/19 06:44 Dextrose (Dextrose 50%) 50 ml Q30M PRN IV Hypoglycemia 04/07/19 06:45 05/07/19 06:44 Insulin Aspart (NovoLOG) AC+HS SUBQ 04/05/19 06:30 05/03/19 16:59 04/09/19 06:38 Insulin Aspart (NovoLOG) 12 units NOVOTIAC SUBQ 04/08/19 11:50 05/07/19 06:44 04/09/19 06:38 Insulin Detemir (Levemir) 20 units Q12HR SUBQ 04/08/19 09:00 05/03/19 08:59 04/08/19 21:34 Levetiracetam 100 ml @ 400 mls/hr Q12HR IVPB 04/04/19 21:00 05/03/19 08:59 04/08/19 21:31 Lorazepam (Ativan 2mg/ml 1ml) 1 mg Q4H PRN IV For Seizures 04/04/19 17:27 04/11/19 17:26 Pantoprazole (Protonix) 40 mg ACBREAKFAST ORAL 04/08/19 06:30 05/08/19 06:29 04/09/19 06:36 Hernesto Byrne MD Apr 09, 2019 06:45
[2019-04-09 07:00] LABS: BASOPHILS % (AUTO) 0.8 % (0.0-2.0); EOSINOPHILS % (AUTO) 0.9 % (0.0-3.0); HEMATOCRIT 27.8 % (37.0-47.0); HEMOGLOBIN 9.3 G/DL (12.0-16.0); LYMPHOCYTES % (AUTO) 11.7 % (20.0-45.0); MEAN CORPUSCULAR VOLUME 88 FL (80-99); MONOCYTES % (AUTO) 7.1 % (1.0-10.0); NEUTROPHILS % (AUTO) 79.5 % (45.0-75.0); PLATELET COUNT 193 K/UL (150-450); RED BLOOD COUNT 3.14 M/UL (4.20-5.40); RED CELL DISTRIBUTION WIDTH 12.6 % (11.6-14.8); WHITE BLOOD COUNT 8.1 K/UL (4.8-10.8)
[2019-04-09 07:48] LABS: ALANINE AMINOTRANSFERASE 17 U/L (12-78); ALBUMIN/GLOBULIN RATIO 0.8 (1.0-2.7); ALKALINE PHOSPHATASE 72 U/L (46-116); ANION GAP 9 mmol/L (5-15); ASPARTATE AMINO TRANSFERASE 22 U/L (15-37); BILIRUBIN,TOTAL 0.9 MG/DL (0.2-1.0); BLOOD UREA NITROGEN 16 mg/dL (7-18); CALCIUM 9.1 MG/DL (8.5-10.1); CARBON DIOXIDE 27 MMOL/L (21-32); CHLORIDE 103 MMOL/L (98-107); CREATININE 0.8 MG/DL (0.55-1.30); POTASSIUM 4.2 MMOL/L (3.5-5.1); SODIUM 139 MMOL/L (136-145)
[2019-04-09 08:00] VITALS: BP 106/64
--- NOTE | 2019-04-09 08:18 | General Progress Note ---
Assessment/Plan Problem List: (1) DKA (diabetic ketoacidoses) ICD Codes: E11.10 - Type 2 diabetes mellitus with ketoacidosis without coma SNOMED: 321410891, 60033297 Qualifiers: Qualified Codes: E13.10 - Other specified diabetes mellitus with ketoacidosis without coma (2) Altered mental state ICD Codes: R41.82 - Altered mental status, unspecified SNOMED: 903217340, 36653955 Qualifiers: Qualified Codes: R41.82 - Altered mental status, unspecified (3) New onset seizure ICD Codes: R56.9 - Unspecified convulsions SNOMED: 97669163, 00400875 Status: stable, progressing Assessment/Plan: improving- eating well dc ivf montor bs diabetes rx per endo sz rx eeg sz precautions dc planning with home health if blood sugar better controlled. will d/w endo dc insulin regime. need to adjust to once a day injection Subjective ROS Limited/Unobtainable: No Constitutional: Reports: malaise, weakness HEENT: Reports: no symptoms Cardiovascular: Reports: no symptoms Respiratory: Reports: cough Gastrointestinal/Abdominal: Reports: no symptoms Genitourinary: Reports: no symptoms Neurologic/Psychiatric: Reports: no symptoms Endocrine: Reports: no symptoms Hematologic/Lymphatic: Reports: no symptoms Allergies: Coded Allergies: No Known Allergies (Unverified , 04/02/19) All Systems: reviewed and negative except above Subjective no complaints. no cp/sob. no dizziness. no szs. BS elevated this am >300. EEG unremarkable Objective Last 24 Hour Vital Signs Date Time Temp Pulse Resp B/P (MAP) Pulse Ox O2 Delivery O2 Flow Rate FiO2 04/09/19 04:00 116 04/09/19 04:00 97.7 88 18 125/69 (87) 98 04/09/19 00:00 111 04/09/19 00:00 98.0 92 18 141/87 (105) 98 04/08/19 21:00 Room Air 04/08/19 20:00 97.4 98 18 127/59 (81) 98 04/08/19 20:00 91 04/08/19 16:00 98.1 96 18 96/52 (67) 97 04/08/19 15:53 99 04/08/19 15:28 101 04/08/19 12:04 87 04/08/19 12:00 98.7 94 18 116/64 (81) 99 94 04/08/19 09:00 Room Air Intake and Output 04/08/19 04/09/19 19:00 07:00 Intake Total 950 ml Output Total 600 ml Balance 350 ml Intake Oral 850 ml IV Total 100 ml Output Urine Total 600 ml # Voids 4 # Bowel Movements 3 Laboratory Tests 04/09/19 06:02: White Blood Count 8.1, Red Blood Count 3.14L, Hemoglobin 9.3L, Hematocrit 27.8L , Mean Corpuscular Volume 88, Mean Corpuscular Hemoglobin 29.8, Mean Corpuscular Hemoglobin Concent 33.6, Red Cell Distribution Width 12.6, Platelet Count 193, Mean Platelet Volume 7.9, Neutrophils (%) (Auto) 79.5H, Lymphocytes ( %) (Auto) 11.7L, Monocytes (%) (Auto) 7.1, Eosinophils (%) (Auto) 0.9, Basophils (%) (Auto) 0.8, Sodium Level 139, Potassium Level 4.2, Chloride Level 103, Carbon Dioxide Level 27, Anion Gap 9, Blood Urea Nitrogen 16, Creatinine 0.8, Estimat Glomerular Filtration Rate > 60, Glucose Level 291H, Calcium Level 9.1, Magnesium Level 2.0, Total Bilirubin 0.9, Aspartate Amino Transf (AST/SGOT ) 22, Alanine Aminotransferase (ALT/SGPT) 17, Alkaline Phosphatase 72, Pro-B- Type Natriuretic Peptide 1144H, Total Protein 6.7, Albumin 3.0L, Globulin 3.7, Albumin/Globulin Ratio 0.8L Height (Feet): 5 Height (Inches): 1.00 Weight (Pounds): 92 Objective General Appearance: WD/WN, alert Neck: supple Cardiovascular: normal rate, regular rhythm Respiratory/Chest: chest wall non-tender, lungs clear, normal breath sounds Abdomen: normal bowel sounds, non tender, soft, no organomegaly Edema: no edema noted Arm (L), no edema noted Arm (R), no edema noted Leg (L), no edema noted Leg (R), no edema noted Pedal (L), no edema noted Pedal (R), no edema noted 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
[2019-04-09] MEDS: levETIRAcetam 500mg/NS100ml 100 ML IVPB SCH ×2 (09:16→21:44)
[2019-04-09] MEDS: Levemir Flexpen SUBQ SCH ×2 (09:41→21:45)
[2019-04-09 12:00] VITALS: BP 104/58
[2019-04-09 16:00] VITALS: BP 93/48
[2019-04-09 20:00] VITALS: BP 131/74
[2019-04-10] VITALS: BP 124/63
--- NOTE | 2019-04-10 02:45 | Progress Note ---
DATE: 04/09/2019 CARDIOLOGY PROGRESS NOTE SUBJECTIVE: The patient has no complaints. Blood sugar remains labile; however, no seizure activity and EEG was negative. OBJECTIVE: VITAL SIGNS: Blood pressure 125/69, heart rate 88, and respiratory rate 18. LUNGS: Clear. CARDIAC: Regular. ABDOMEN: Soft. EXTREMITIES: No edema. LABORATORY DATA: White count 8.1 and hemoglobin 9.3. Sodium 139, potassium 4.2, bicarbonate 27, BUN 16, creatinine 0.8, and glucose 291. Pro-natriuretic peptide has decreased to 1100. Albumin 3.0. IMPRESSION: 1. DKA, resolved, but still has very labile blood glucose. 2. Acute on chronic diastolic congestive heart failure, improved. 3. Moderate to severe protein-calorie malnutrition, improving mild hypertensive heart disease with controlled blood pressure. 4. Hypomagnesemia, corrected. PLAN: 1. Family members at bedside. 2. Case discussed. 3. Discharge plan once we are able to transition to less frequent insulin regimen that can be given at home with family members and home health assistance. Otherwise, we will continue to optimize cardiovascular regimen as needed. Mark Guevara M.D. DR: JARRETT JOB#: [id number] CC:
[2019-04-10 04:00] VITALS: BP 106/88
[2019-04-10] MEDS: NovoLOG Insulin Flexpen SUBQ SCH ×7 (05:55→20:45)
--- NOTE | 2019-04-10 06:36 | General Progress Note ---
Assessment/Plan Problem List: (1) New onset seizure ICD Codes: R56.9 - Unspecified convulsions SNOMED: 57573145, 55466255 (2) DKA (diabetic ketoacidoses) ICD Codes: E11.10 - Type 2 diabetes mellitus with ketoacidosis without coma SNOMED: 566998897, 36132678 Qualifiers: Qualified Codes: E13.10 - Other specified diabetes mellitus with ketoacidosis without coma (3) Altered mental state ICD Codes: R41.82 - Altered mental status, unspecified SNOMED: 778159776, 54711611 Qualifiers: Qualified Codes: R41.82 - Altered mental status, unspecified Status: stable, progressing Assessment/Plan: she continue to have high insulin dose requirement her diabetes requires to be treated with basal / bolus regimen after discharge - continue Levemir 24 units bid - increase Novolog 12 to 15 units ac tid - add Metformin 500 mg tid - continue NISS ac / hs Subjective Allergies: Coded Allergies: No Known Allergies (Unverified , 04/02/19) All Systems: reviewed and negative except above Subjective events noted fasting glucose improved but mealtime glucose remained elevated despite increased Novolog dose Item Value Date Time Bedside Blood Glucose 142 mg/dl H 04/10/19 0555 Bedside Blood Glucose 447 mg/dl H 04/09/19 2145 Bedside Blood Glucose 379 mg/dl H 04/09/19 1721 Bedside Blood Glucose 224 mg/dl H 04/09/19 1217 Bedside Blood Glucose 184 mg/dl H 04/09/19 0941 Bedside Blood Glucose 293 mg/dl H 04/09/19 0638 Objective Last 24 Hour Vital Signs Date Time Temp Pulse Resp B/P (MAP) Pulse Ox O2 Delivery O2 Flow Rate FiO2 04/10/19 04:00 99.6 111 19 106/88 (94) 97 04/10/19 04:00 111 04/10/19 00:00 110 04/10/19 00:00 99.1 110 20 124/63 (83) 97 04/09/19 21:00 Room Air 04/09/19 20:00 98.3 104 20 131/74 (93) 95 04/09/19 20:00 104 04/09/19 16:00 91 04/09/19 16:00 99.4 94 18 93/48 (63) 100 04/09/19 12:00 98.0 100 18 104/58 (73) 97 04/09/19 12:00 106 04/09/19 09:00 Room Air 04/09/19 08:00 99.7 97 18 106/64 (78) 99 04/09/19 08:00 118 Intake and Output 04/09/19 04/10/19 19:00 07:00 Intake Total 260 ml Balance 260 ml Intake Oral 260 ml # Voids 3 3 # Bowel Movements 3 1 Height (Feet): 5 Height (Inches): 1.00 Weight (Pounds): 95 General Appearance: no apparent distress Neck: normal alignment Cardiovascular: normal rate Respiratory/Chest: lungs clear Abdomen: normal bowel sounds Objective Current Medications Medications (Trade) Dose Ordered Sig/Daja Route PRN Reason Start Time Stop Time Status Last Admin Dose Admin Dextrose (Dextrose 50%) 25 ml Q30M PRN IV Hypoglycemia 04/07/19 06:45 05/07/19 06:44 Dextrose (Dextrose 50%) 50 ml Q30M PRN IV Hypoglycemia 04/07/19 06:45 05/07/19 06:44 Insulin Aspart (NovoLOG) AC+HS SUBQ 04/05/19 06:30 05/03/19 16:59 04/10/19 05:55 Insulin Aspart (NovoLOG) 12 units NOVOTIAC SUBQ 04/08/19 11:50 05/07/19 06:44 04/10/19 05:55 Insulin Detemir (Levemir) 24 units Q12HR SUBQ 04/09/19 09:00 05/03/19 08:59 04/09/19 21:45 Levetiracetam 100 ml @ 400 mls/hr Q12HR IVPB 04/04/19 21:00 05/03/19 08:59 04/09/19 21:44 Lisinopril (Zestril) 10 mg DAILY ORAL 04/10/19 09:00 05/10/19 08:59 Lorazepam (Ativan 2mg/ml 1ml) 1 mg Q4H PRN IV For Seizures 04/04/19 17:27 04/11/19 17:26 Pantoprazole (Protonix) 40 mg ACBREAKFAST ORAL 04/08/19 06:30 05/08/19 06:29 04/10/19 05:52 Hernesto Byrne MD Apr 10, 2019 06:36
--- NOTE | 2019-04-10 07:42 | General Progress Note ---
Assessment/Plan Problem List: (1) DKA (diabetic ketoacidoses) ICD Codes: E11.10 - Type 2 diabetes mellitus with ketoacidosis without coma SNOMED: 705323792, 03967318 Qualifiers: Qualified Codes: E13.10 - Other specified diabetes mellitus with ketoacidosis without coma (2) Altered mental state ICD Codes: R41.82 - Altered mental status, unspecified SNOMED: 583058501, 26927889 Qualifiers: Qualified Codes: R41.82 - Altered mental status, unspecified (3) New onset seizure ICD Codes: R56.9 - Unspecified convulsions SNOMED: 52579075, 63569865 Status: stable, progressing Assessment/Plan: stable monitor bs diabetes rx dc planning is cleared by endo dc planning with home health if blood sugar better controlled. will d/w endo dc insulin regime. need to adjust to once a day injection Subjective ROS Limited/Unobtainable: No Constitutional: Reports: malaise, weakness HEENT: Reports: no symptoms Cardiovascular: Reports: no symptoms Respiratory: Reports: no symptoms Gastrointestinal/Abdominal: Reports: no symptoms Genitourinary: Reports: no symptoms Neurologic/Psychiatric: Reports: seizure Endocrine: Reports: no symptoms Hematologic/Lymphatic: Reports: no symptoms Allergies: Coded Allergies: No Known Allergies (Unverified , 04/02/19) All Systems: reviewed and negative except above Subjective no complaints. no cp/sob. no dizziness. no szs. BS elevated to 400 last night. better this am. no szs Objective Last 24 Hour Vital Signs Date Time Temp Pulse Resp B/P (MAP) Pulse Ox O2 Delivery O2 Flow Rate FiO2 04/10/19 04:00 99.6 111 19 106/88 (94) 97 04/10/19 04:00 111 04/10/19 00:00 110 04/10/19 00:00 99.1 110 20 124/63 (83) 97 04/09/19 21:00 Room Air 04/09/19 20:00 98.3 104 20 131/74 (93) 95 04/09/19 20:00 104 04/09/19 16:00 91 04/09/19 16:00 99.4 94 18 93/48 (63) 100 04/09/19 12:00 98.0 100 18 104/58 (73) 97 04/09/19 12:00 106 04/09/19 09:00 Room Air 04/09/19 08:00 99.7 97 18 106/64 (78) 99 04/09/19 08:00 118 Intake and Output 04/09/19 04/10/19 19:00 07:00 Intake Total 260 ml Balance 260 ml Intake Oral 260 ml # Voids 3 3 # Bowel Movements 3 1 Height (Feet): 5 Height (Inches): 1.00 Weight (Pounds): 95 Objective General Appearance: WD/WN, alert Neck: supple Cardiovascular: normal rate, regular rhythm Respiratory/Chest: chest wall non-tender, lungs clear, normal breath sounds Abdomen: normal bowel sounds, non tender, soft, no organomegaly Edema: no edema noted Arm (L), no edema noted Arm (R), no edema noted Leg (L), no edema noted Leg (R), no edema noted Pedal (L), no edema noted Pedal (R), no edema noted Generalized 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
[2019-04-10 07:58] VITALS: BP 119/62
[2019-04-10] MEDS: levETIRAcetam 500mg/NS100ml 100 ML IVPB SCH ×2 (09:09→20:43)
[2019-04-10] MEDS: Lisinopril 10mg tab ORAL SCH (09:09)
[2019-04-10] MEDS: Levemir Flexpen SUBQ SCH ×2 (09:10→20:45)
[2019-04-10 12:00] VITALS: BP 124/64
[2019-04-10] MEDS: metFORMIN 500mg tab ORAL SCH ×2 (12:03→17:25)
[2019-04-10 15:50] LABS: APPEARANCE,URINE CLOUDY; BILIRUBIN, URINE NEGATIVE (NEGATIVE); COLOR,URINE YELLOW; GLUCOSE, URINE (UA) 2+ (NEGATIVE); KETONES,URINE NEGATIVE (NEGATIVE); LEUKOCYTE ESTERASE ,URINE 3+ (NEGATIVE); NITRITE,URINE NEGATIVE (NEGATIVE); PH,URINE 5 (4.5-8.0); PROTEIN,URINE 2+ (NEGATIVE); UROBILINOGEN,URINE NORMAL MG/DL (0.0-1.0)
[2019-04-10 15:55] VITALS: BP 103/43
--- NOTE | 2019-04-10 19:45 | Progress Note ---
DATE: 04/10/2019 CARDIOLOGY PROGRESS NOTE SUBJECTIVE: The patient remains with sinus tachycardia and low-grade fevers. Glucose levels are elevated. Appetite and oral intake vary. Insulin titration ongoing. PHYSICAL EXAMINATION: VITAL SIGNS: Blood pressure 106/88, pulse 111, respirations 19, temperature 99.6, oxygen sats 97% on room air. LUNGS: Clear. CARDIAC: Regular. Rapid S1 and S2 with no murmur. ABDOMEN: Soft, nontender. No edema. LABORATORY DATA: Urinalysis reveals too numerous to count white cells. IMPRESSION: 1. Hospital-acquired urinary tract infection. 2. Secondary sinus tachycardia. 3. Diabetes, out of control. 4. Status post DKA. PLAN: 1. Antimicrobials. 2. Titration of insulin regimen. 3. Continue low-dose ROSEANN inhibitor in the setting of insulin-requiring diabetes for renal protective benefit. 4. Await urine culture. Mark Guevara M.D. DR: MATTEO JOB#: [id number] CC:
[2019-04-10 20:00] VITALS: BP 105/53
[2019-04-10] MEDS: Piperacillin/Tazobactam 3.375 GM in NS 110 ML IVPB SCH (21:33)
[2019-04-11] VITALS: BP 98/54
[2019-04-11 04:00] VITALS: BP 101/54
[2019-04-11] MEDS: Piperacillin/Tazobactam 3.375 GM in NS 110 ML IVPB SCH ×3 (05:23→21:59)
--- NOTE | 2019-04-11 06:03 | General Progress Note ---
Assessment/Plan Problem List: (1) DKA (diabetic ketoacidoses) ICD Codes: E11.10 - Type 2 diabetes mellitus with ketoacidosis without coma SNOMED: 145332660, 43689105 Qualifiers: Qualified Codes: E13.10 - Other specified diabetes mellitus with ketoacidosis without coma (2) Altered mental state ICD Codes: R41.82 - Altered mental status, unspecified SNOMED: 144808714, 55269760 Qualifiers: Qualified Codes: R41.82 - Altered mental status, unspecified (3) New onset seizure ICD Codes: R56.9 - Unspecified convulsions SNOMED: 21062258, 51184964 Status: stable, progressing Assessment/Plan: stable monitor bs diabetes rx iv abx follow up cultures not stable for dc with fever Subjective ROS Limited/Unobtainable: No Constitutional: Reports: fever, malaise, weakness HEENT: Reports: no symptoms Cardiovascular: Reports: no symptoms Respiratory: Reports: no symptoms Gastrointestinal/Abdominal: Reports: no symptoms Genitourinary: Reports: no symptoms Neurologic/Psychiatric: Reports: seizure Endocrine: Reports: no symptoms Hematologic/Lymphatic: Reports: no symptoms Allergies: Coded Allergies: No Known Allergies (Unverified , 04/02/19) All Systems: reviewed and negative except above Subjective BS better this am. febrile yesterday. on iv abx. panculture. abnormal UA. no szs Objective Last 24 Hour Vital Signs Date Time Temp Pulse Resp B/P (MAP) Pulse Ox O2 Delivery O2 Flow Rate FiO2 04/11/19 04:00 98.0 96 18 101/54 (70) 94 04/11/19 04:00 96 04/11/19 00:00 122 04/11/19 00:00 97.3 110 18 98/54 (69) 95 04/10/19 21:00 Room Air 04/10/19 20:00 94 04/10/19 20:00 96.8 90 17 105/53 (70) 97 04/10/19 17:55 101.7 04/10/19 16:00 101 04/10/19 15:55 101.7 109 18 103/43 (63) 96 04/10/19 12:00 122 04/10/19 12:00 102.3 133 18 124/64 (84) 96 04/10/19 09:09 119/62 04/10/19 09:00 Room Air 04/10/19 08:00 108 04/10/19 07:58 99.1 112 18 119/62 (81) 95 Intake and Output 04/10/19 04/11/19 18:59 06:59 Intake Total 590 ml Output Total 900 ml Balance -310 ml Intake Oral 490 ml IV Total 100 ml Output Urine Total 900 ml # Bowel Movements 1 1 Laboratory Tests 04/10/19 15:20: Urine Color Yellow, Urine Appearance Cloudy, Urine pH 5, Urine Specific [place] 1.015, Urine Protein 2+H, Urine Glucose (UA) 2+H, Urine Ketones Negative, Urine Blood 3+H, Urine Nitrite Negative, Urine Bilirubin Negative, Urine Urobilinogen Normal, Urine Leukocyte Esterase 3+H, Urine RBC 2-4H, Urine WBC TntcH, Urine Squamous Epithelial Cells Few, Urine Bacteria ManyH Height (Feet): 5 Height (Inches): 1.00 Weight (Pounds): 95 Objective General Appearance: WD/WN, alert Neck: supple Cardiovascular: normal rate, regular rhythm Respiratory/Chest: chest wall non-tender, lungs clear, normal breath sounds Abdomen: normal bowel sounds, non tender, soft, no organomegaly Edema: no edema noted Arm (L), no edema noted Arm (R), no edema noted Leg (L), no edema noted Leg (R), no edema noted Pedal (L), no edema noted Pedal (R), no edema noted Generalized 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
[2019-04-11] MEDS: metFORMIN 500mg tab ORAL SCH (06:24)
[2019-04-11] MEDS: NovoLOG Insulin Flexpen SUBQ SCH ×7 (06:29→20:37)
[2019-04-11 06:39] LABS: HEMATOCRIT 21.1 % (37.0-47.0); HEMOGLOBIN 7.2 G/DL (12.0-16.0); MEAN CORPUSCULAR VOLUME 89 FL (80-99); PLATELET COUNT 161 K/UL (150-450); RED BLOOD COUNT 2.36 M/UL (4.20-5.40); RED CELL DISTRIBUTION WIDTH 12.8 % (11.6-14.8); WHITE BLOOD COUNT 10.5 K/UL (4.8-10.8)
--- NOTE | 2019-04-11 06:43 | General Progress Note ---
Assessment/Plan Problem List: (1) New onset seizure ICD Codes: R56.9 - Unspecified convulsions SNOMED: 89135211, 22797656 (2) DKA (diabetic ketoacidoses) ICD Codes: E11.10 - Type 2 diabetes mellitus with ketoacidosis without coma SNOMED: 339047717, 03561906 Qualifiers: Qualified Codes: E13.10 - Other specified diabetes mellitus with ketoacidosis without coma (3) Altered mental state ICD Codes: R41.82 - Altered mental status, unspecified SNOMED: 076505343, 18524609 Qualifiers: Qualified Codes: R41.82 - Altered mental status, unspecified Status: stable, progressing Assessment/Plan: glucose values improved on high dose insulin regimen her diabetes requires to be treated with basal / bolus regimen after discharge - reduce Levemir to 20 units bid - reduce Novolog to 13 units ac tid - continue Metformin 500 mg tid - continue NISS ac / hs Subjective Allergies: Coded Allergies: No Known Allergies (Unverified , 04/02/19) All Systems: reviewed and negative except above Subjective events noted glucose values in better range Item Value Date Time Bedside Blood Glucose 100 mg/dl 04/11/19 0632 Bedside Blood Glucose 94 mg/dl 04/10/19 2100 Bedside Blood Glucose 236 mg/dl H 04/10/19 1728 Bedside Blood Glucose 176 mg/dl H 04/10/19 1205 Bedside Blood Glucose 142 mg/dl H 04/10/19 0910 Bedside Blood Glucose 142 mg/dl H 04/10/19 0630 Objective Last 24 Hour Vital Signs Date Time Temp Pulse Resp B/P (MAP) Pulse Ox O2 Delivery O2 Flow Rate FiO2 04/11/19 04:00 98.0 96 18 101/54 (70) 94 04/11/19 04:00 96 04/11/19 00:00 122 04/11/19 00:00 97.3 110 18 98/54 (69) 95 04/10/19 21:00 Room Air 04/10/19 20:00 94 04/10/19 20:00 96.8 90 17 105/53 (70) 97 04/10/19 17:55 101.7 04/10/19 16:00 101 04/10/19 15:55 101.7 109 18 103/43 (63) 96 9/19/19 12:00 122 04/10/19 12:00 102.3 133 18 124/64 (84) 96 04/10/19 09:09 119/62 04/10/19 09:00 Room Air 04/10/19 08:00 108 04/10/19 07:58 99.1 112 18 119/62 (81) 95 Intake and Output 04/10/19 04/11/19 18:59 06:59 Intake Total 590 ml Output Total 900 ml Balance -310 ml Intake Oral 490 ml IV Total 100 ml Output Urine Total 900 ml # Bowel Movements 1 1 Laboratory Tests 04/10/19 15:20: Urine Color Yellow, Urine Appearance Cloudy, Urine pH 5, Urine Specific [place] 1.015, Urine Protein 2+H, Urine Glucose (UA) 2+H, Urine Ketones Negative, Urine Blood 3+H, Urine Nitrite Negative, Urine Bilirubin Negative, Urine Urobilinogen Normal, Urine Leukocyte Esterase 3+H, Urine RBC 2-4H, Urine WBC TntcH, Urine Squamous Epithelial Cells Few, Urine Bacteria ManyH 04/11/19 06:15: White Blood Count [Pending], Red Blood Count [Pending], Hemoglobin [Pending], Hematocrit [Pending], Mean Corpuscular Volume [Pending], Mean Corpuscular Hemoglobin [Pending], Mean Corpuscular Hemoglobin Concent [Pending], Red Cell Distribution Width [Pending], Platelet Count [Pending], Mean Platelet Volume [ Pending], Neutrophils (%) (Auto) [Pending], Lymphocytes (%) (Auto) [Pending], Monocytes (%) (Auto) [Pending], Eosinophils (%) (Auto) [Pending], Basophils (%) (Auto) [Pending], Sodium Level [Pending], Potassium Level [Pending], Chloride Level [Pending], Carbon Dioxide Level [Pending], Blood Urea Nitrogen [Pending], Creatinine [Pending], Estimat Glomerular Filtration Rate [Pending], Glucose Level [Pending], Calcium Level [Pending], Total Bilirubin [Pending], Aspartate Amino Transf (AST/SGOT) [Pending], Alanine Aminotransferase (ALT/SGPT) [Pending] , Alkaline Phosphatase [Pending], Total Protein [Pending], Albumin [Pending], Globulin [Pending] Height (Feet): 5 Height (Inches): 1.00 Weight (Pounds): 95 General Appearance: no apparent distress Neck: normal alignment Cardiovascular: normal rate Respiratory/Chest: decreased breath sounds Abdomen: normal bowel sounds Objective Current Medications Medications (Trade) Dose Ordered Sig/Daja Route PRN Reason Start Time Stop Time Status Last Admin Dose Admin Acetaminophen (Tylenol) 650 mg Q4H PRN ORAL Mild Pain/Temp > 100.5 04/10/19 16:30 05/10/19 16:29 04/10/19 17:25 Dextrose (Dextrose 50%) 25 ml Q30M PRN IV Hypoglycemia 04/07/19 06:45 05/07/19 06:44 Dextrose (Dextrose 50%) 50 ml Q30M PRN IV Hypoglycemia 04/07/19 06:45 05/07/19 06:44 Insulin Aspart (NovoLOG) AC+HS SUBQ 04/05/19 06:30 05/03/19 16:59 04/10/19 17:28 Insulin Aspart (NovoLOG) 15 units NOVOTIAC SUBQ 04/10/19 11:50 05/07/19 06:44 04/11/19 06:32 Insulin Detemir (Levemir) 24 units Q12HR SUBQ 04/09/19 09:00 05/03/19 08:59 04/10/19 20:45 Levetiracetam 100 ml @ 400 mls/hr Q12HR IVPB 04/04/19 21:00 05/03/19 08:59 04/10/19 20:43 Lisinopril (Zestril) 10 mg DAILY ORAL 04/10/19 09:00 05/10/19 08:59 04/10/19 09:09 Lorazepam (Ativan 2mg/ml 1ml) 1 mg Q4H PRN IV For Seizures 04/04/19 17:27 04/11/19 17:26 Metformin HCl (Glucophage) 500 mg TIAC ORAL 04/10/19 11:30 05/10/19 11:29 04/11/19 06:24 Pantoprazole (Protonix) 40 mg ACBREAKFAST ORAL 04/08/19 06:30 05/08/19 06:29 04/11/19 06:24 Piperacillin Sod/ Tazobactam Sod 3.375 gm/Sodium Chloride 110 ml @ 27.5 mls/hr EVERY 8 HOURS IVPB 04/10/19 22:00 04/15/19 21:59 04/11/19 05:23 Hernesto Byrne MD Apr 11, 2019 06:43
[2019-04-11 07:04] LABS: ALANINE AMINOTRANSFERASE 162 U/L (12-78); ALBUMIN 2.3 G/DL (3.4-5.0); ALBUMIN/GLOBULIN RATIO 0.6 (1.0-2.7); ALKALINE PHOSPHATASE 122 U/L (46-116); ANION GAP 9 mmol/L (5-15); ASPARTATE AMINO TRANSFERASE 228 U/L (15-37); BILIRUBIN,TOTAL 1.9 MG/DL (0.2-1.0); BLOOD UREA NITROGEN 31 mg/dL (7-18); CALCIUM 8.2 MG/DL (8.5-10.1); CARBON DIOXIDE 27 MMOL/L (21-32); CHLORIDE 103 MMOL/L (98-107); CREATININE 1.5 MG/DL (0.55-1.30); POTASSIUM 3.7 MMOL/L (3.5-5.1); SODIUM 139 MMOL/L (136-145)
[2019-04-11 07:10] LABS: BILIRUBIN,DIRECT 0.6 MG/DL (0.0-0.3)
[2019-04-11 08:00] VITALS: BP 91/50
[2019-04-11] MEDS: levETIRAcetam 500mg/NS100ml 100 ML IVPB SCH ×2 (08:23→20:33)
[2019-04-11 08:36] LABS: HEMATOCRIT 21.9 % (37.0-47.0); HEMOGLOBIN 7.5 G/DL (12.0-16.0); MEAN CORPUSCULAR VOLUME 89 FL (80-99); PLATELET COUNT 176 K/UL (150-450); RED BLOOD COUNT 2.47 M/UL (4.20-5.40); RED CELL DISTRIBUTION WIDTH 12.6 % (11.6-14.8); WHITE BLOOD COUNT 9.6 K/UL (4.8-10.8)
[2019-04-11] MEDS: Lisinopril 10mg tab ORAL SCH (08:47)
[2019-04-11] MEDS: Levemir Flexpen SUBQ SCH ×2 (09:29→20:38)
--- NOTE | 2019-04-11 10:14 | Consultation ---
History of Present Illness General Date patient seen: Apr 11, 2019 Reason for Hospitalization: Abnormal Labs Present Illness HPI This is a very pleasant 68-year-old female with multiple medical comorbidities who was brought in by her family for altered mental status, DKA, abnormal labs and worsening condition. Patient was admitted for further care and management and has been improving under medical care. Patient today had a fever of 102, abnormal LFTs, abd pain and surgery was called to evaluate for possible cholecystitis. Patient seen, patient evaluated, chart reviewed. Patient states she is doing well does not have any current abdominal complaints but was having some discomfort yesterday. States intermittent nausea. No emesis. Normal bowel function recently. Allergies: Coded Allergies: No Known Allergies (Unverified , 04/02/19) Medication History Scheduled Metformin Hcl* (Metformin Hcl*), 500 MG ORAL TWICE A DAY, (Reported) Patient History History Provided By: Patient, Medical Record, PMD Healthcare decision maker Resuscitation status Full Code Advanced Directive on File Past Medical/Surgical History Past Medical/Surgical History: (1) Abdominal pain (2) Abnormal LFTs (3) DKA (diabetic ketoacidoses) (4) Altered mental state (5) New onset seizure Review of Systems Review of Symptoms General ROS: no weight loss or fever Psychological ROS: no depression or mood changes, no memory loss Ophthalmic ROS: no visual changes or eye irritation ENT ROS: no nasal congestion, hearing loss, dizziness Allergy and Immunology ROS: no allergic symptoms or urticaria Hematological and Lymphatic ROS: no swollen glands, unusual bleeding or bruising Endocrine ROS: no polyuria, polydipsia, weight changes, temperature intolerance Respiratory ROS: no cough, shortness of breath, or wheezing Cardiovascular ROS: no chest pain or dyspnea on exertion Gastrointestinal ROS: denies abdominal pain, no bright red blood in stool. Musculoskeletal ROS: no myalgias or arthralgias Neurological ROS: no TIA or stroke symptoms Dermatological ROS: no new or changing skin lesions, rashes or pruritis Physical Exam Physical Exam General appearance: alert, cooperative, no distress, appears stated age Head: Normocephalic, without obvious abnormality, atraumatic Eyes: conjunctivae/corneas clear. PERRL, EOM's intact. Fundi benign Throat: Lips, mucosa, and tongue normal. Teeth and gums normal Neck: supple, symmetrical, trachea midline, no adenopathy, thyroid: not enlarged, symmetric, no tenderness/mass/nodules, no carotid bruit and no JVD Lungs: clear to auscultation bilaterally Heart: regular rate and rhythm, S1, S2 normal, no murmur, click, rub or gallop Abdomen: soft, non-tender. Bowel sounds normal. No masses, no organomegaly Extremities: extremities normal, atraumatic, no cyanosis or edema Pulses: 2+ and symmetric Skin: Skin color, texture, turgor normal. No rashes or lesions Neurologic: Grossly normal Last 24 Hour Vital Signs Date Time Temp Pulse Resp B/P (MAP) Pulse Ox O2 Delivery O2 Flow Rate FiO2 04/11/19 09:00 Room Air 04/11/19 08:48 99.7 04/11/19 08:47 91/50 04/11/19 08:00 102.0 102 19 91/50 (64) 97 04/11/19 07:59 94 04/11/19 04:00 98.0 96 18 101/54 (70) 94 04/11/19 04:00 96 04/11/19 00:00 122 04/11/19 00:00 97.3 110 18 98/54 (69) 95 04/10/19 21:00 Room Air 04/10/19 20:00 94 04/10/19 20:00 96.8 90 17 105/53 (70) 97 04/10/19 16:00 101 04/10/19 15:55 101.7 109 18 103/43 (63) 96 04/10/19 12:00 122 04/10/19 12:00 102.3 133 18 124/64 (84) 96 Intake and Output 04/10/19 04/11/19 19:00 07:00 Intake Total 590 ml 250 ml Output Total 900 ml Balance -310 ml 250 ml Intake Oral 490 ml 250 ml IV Total 100 ml Output Urine Total 900 ml # Voids 2 # Bowel Movements 1 1 Laboratory Tests Test 04/10/19 15:20 04/11/19 06:15 04/11/19 08:30 Urine Color Yellow Urine Appearance Cloudy Urine pH 5 (4.5-8.0) Urine Specific [place] 1.015 (1.005-1.035) Urine Protein 2+ (NEGATIVE) H Urine Glucose (UA) 2+ (NEGATIVE) H Urine Ketones Negative (NEGATIVE) Urine Blood 3+ (NEGATIVE) H Urine Nitrite Negative (NEGATIVE) Urine Bilirubin Negative (NEGATIVE) Urine Urobilinogen Normal MG/DL (0.0-1.0) Urine Leukocyte Esterase 3+ (NEGATIVE) H Urine RBC 2-4 /HPF (0 - 2) H Urine WBC Tntc /HPF (0 - 2) H Urine Squamous Epithelial Cells Few /LPF (NONE/OCC) Urine Bacteria Many /HPF (NONE) H White Blood Count 10.5 K/UL (4.8-10.8) 9.6 K/UL (4.8-10.8) Red Blood Count 2.36 M/UL (4.20-5.40) L 2.47 M/UL (4.20-5.40) L Hemoglobin 7.2 G/DL (12.0-16.0) L 7.5 G/DL (12.0-16.0) L Hematocrit 21.1 % (37.0-47.0) L 21.9 % (37.0-47.0) L Mean Corpuscular Volume 89 FL (80-99) 89 FL (80-99) Mean Corpuscular Hemoglobin 30.5 PG (27.0-31.0) 30.3 PG (27.0-31.0) Mean Corpuscular Hemoglobin Concent 34.1 G/DL (32.0-36.0) 34.2 G/DL (32.0-36.0) Red Cell Distribution Width 12.8 % (11.6-14.8) 12.6 % (11.6-14.8) Platelet Count 161 K/UL (150-450) 176 K/UL (150-450) Mean Platelet Volume 6.8 FL (6.5-10.1) 7.3 FL (6.5-10.1) Neutrophils (%) (Auto) % (45.0-75.0) % (45.0-75.0) Lymphocytes (%) (Auto) % (20.0-45.0) % (20.0-45.0) Monocytes (%) (Auto) % (1.0-10.0) % (1.0-10.0) Eosinophils (%) (Auto) % (0.0-3.0) % (0.0-3.0) Basophils (%) (Auto) % (0.0-2.0) % (0.0-2.0) Differential Total Cells Counted 100 100 Neutrophils % (Manual) 88 % (45-75) H 81 % (45-75) H Lymphocytes % (Manual) 9 % (20-45) L 10 % (20-45) L Monocytes % (Manual) 3 % (1-10) 9 % (1-10) Eosinophils % (Manual) 0 % (0-3) 0 % (0-3) Basophils % (Manual) 0 % (0-2) 0 % (0-2) Band Neutrophils 0 % (0-8) 0 % (0-8) Platelet Estimate Adequate Adequate Platelet Morphology Normal Normal Polychromasia 1+ 1+ Hypochromasia 1+ 1+ Sodium Level 139 MMOL/L (136-145) Potassium Level 3.7 MMOL/L (3.5-5.1) Chloride Level 103 MMOL/L (98-107) Carbon Dioxide Level 27 MMOL/L (21-32) Anion Gap 9 mmol/L (5-15) Blood Urea Nitrogen 31 mg/dL (7-18) H Creatinine 1.5 MG/DL (0.55-1.30) H Estimat Glomerular Filtration Rate 34.7 mL/min (>60) Glucose Level 93 MG/DL (74-106) Calcium Level 8.2 MG/DL (8.5-10.1) L Total Bilirubin 1.9 MG/DL (0.2-1.0) H Direct Bilirubin 0.6 MG/DL (0.0-0.3) H Aspartate Amino Transf (AST/SGOT) 228 U/L (15-37) H Alanine Aminotransferase (ALT/SGPT) 162 U/L (12-78) H Alkaline Phosphatase 122 U/L (46-116) H Total Protein 5.9 G/DL (6.4-8.2) L Albumin 2.3 G/DL (3.4-5.0) L Globulin 3.6 g/dL Albumin/Globulin Ratio 0.6 (1.0-2.7) L Microbiology Date/Time Source Procedure Growth Status 04/10/19 15:20 Straight Cath Urine Culture - Preliminary Gram Negative Bacillus 1 Resulted Height (Feet): 5 Height (Inches): 1.00 Weight (Pounds): 96 Medications Current Medications Medications (Trade) Dose Ordered Sig/Daja Route PRN Reason Start Time Stop Time Status Last Admin Dose Admin Acetaminophen (Tylenol) 650 mg Q4H PRN ORAL Mild Pain/Temp > 100.5 04/10/19 16:30 05/10/19 16:29 04/11/19 08:18 Dextrose (Dextrose 50%) 25 ml Q30M PRN IV Hypoglycemia 04/07/19 06:45 05/07/19 06:44 Dextrose (Dextrose 50%) 50 ml Q30M PRN IV Hypoglycemia 04/07/19 06:45 05/07/19 06:44 Insulin Aspart (NovoLOG) AC+HS SUBQ 04/05/19 06:30 05/03/19 16:59 04/10/19 17:28 Insulin Aspart (NovoLOG) 13 units NOVOTIAC SUBQ 04/11/19 11:50 05/07/19 06:44 Insulin Detemir (Levemir) 20 units Q12HR SUBQ 04/11/19 09:00 05/03/19 08:59 04/11/19 09:29 Levetiracetam 100 ml @ 400 mls/hr Q12HR IVPB 04/04/19 21:00 05/03/19 08:59 04/11/19 08:23 Lisinopril (Zestril) 10 mg DAILY ORAL 04/10/19 09:00 05/10/19 08:59 04/10/19 09:09 Lorazepam (Ativan 2mg/ml 1ml) 1 mg Q4H PRN IV For Seizures 04/04/19 17:27 04/11/19 17:26 Pantoprazole (Protonix) 40 mg ACBREAKFAST ORAL 04/08/19 06:30 05/08/19 06:29 04/11/19 06:24 Piperacillin Sod/ Tazobactam Sod 3.375 gm/Sodium Chloride 110 ml @ 27.5 mls/hr EVERY 8 HOURS IVPB 04/10/19 22:00 04/15/19 21:59 04/11/19 05:23 Assessment/Plan Problem List: (1) Abdominal pain Assessment & Plan: 68-year-old female with recent abdominal discomfort mainly epigastric region, nausea, no emesis, fevers, abnormal LFTs. Will need further work-up prior to surgical recommendations Ultrasound abdomen ordered Okay for diet given pain resolved Trend labs IV antibiotics Thank you for allowing me to participate in patient's care will follow with recommendations ICD Codes: R10.9 - Unspecified abdominal pain SNOMED: [id number] (2) Abnormal LFTs Assessment & Plan: Possible acute cholecystitis and potential choledocholithiasis with passage of stone currently pain resolved and patient improving continue as above ICD Codes: R94.5 - Abnormal results of liver function studies SNOMED: [id number] Eric Webster Apr 11, 2019 10:14
--- NOTE | 2019-04-11 11:15 | Diagnostic Imaging Report ---
Indication: Dyspnea Comparison: 04/02/2019 A single view chest radiograph was obtained. Findings: Cardiomediastinal appearance is within normal limits for age. The lungs are clear. Pulmonary vascularity is appropriate. The diaphragmatic contour is smooth and costophrenic angles are sharp. No pleural effusions are identified. The bones are unremarkable. Impression: No acute findings
[2019-04-11 12:00] VITALS: BP 97/52
--- NOTE | 2019-04-11 15:40 | Diagnostic Imaging Report ---
Indication: Abdominal pain Technique: Grayscale and duplex Doppler imaging of the abdomen performed. Comparison: None Findings: The liver is unremarkable. Doppler interrogation of the main portal vein shows patency with hepatopedal, monophasic flow. There is no biliary ductal dilatation identified. Gallbladder is unremarkable. There is a trace right pleural effusion. There is also trace ascites. There demonstrated part of the pancreas, aorta and IVC show no definite abnormalities. Both kidneys appear unremarkable. There is no hydronephrosis. There is a juxtacortical left renal cyst measuring 8 mm. IMPRESSION: No acute findings identified. Left renal cyst Small right pleural effusion. Trace ascites
[2019-04-11 16:00] VITALS: BP 115/54
--- NOTE | 2019-04-11 16:18 | General Progress Note ---
Assessment/Plan Status: stable, progressing Assessment/Plan: GI CONSULT Dictated Passage of a stone would be most fitting explanation Will check MRCP since U/S unrevealing Will follow Thank you Shona Holliday MD Subjective Allergies: Coded Allergies: No Known Allergies (Unverified , 04/02/19) Objective Last 24 Hour Vital Signs Date Time Temp Pulse Resp B/P (MAP) Pulse Ox O2 Delivery O2 Flow Rate FiO2 04/11/19 12:00 99.0 91 19 97/52 (67) 98 04/11/19 11:52 90 04/11/19 09:00 Room Air 04/11/19 08:48 99.7 04/11/19 08:47 91/50 04/11/19 08:00 102.0 102 19 91/50 (64) 97 04/11/19 07:59 94 04/11/19 04:00 98.0 96 18 101/54 (70) 94 04/11/19 04:00 96 04/11/19 00:00 122 04/11/19 00:00 97.3 110 18 98/54 (69) 95 04/10/19 21:00 Room Air 04/10/19 20:00 94 04/10/19 20:00 96.8 90 17 105/53 (70) 97 Intake and Output 04/10/19 04/11/19 19:00 07:00 Intake Total 590 ml 250 ml Output Total 900 ml Balance -310 ml 250 ml Intake Oral 490 ml 250 ml IV Total 100 ml Output Urine Total 900 ml # Voids 2 # Bowel Movements 1 1 Laboratory Tests 04/11/19 06:15: White Blood Count 10.5, Red Blood Count 2.36L, Hemoglobin 7.2L, Hematocrit 21.1L , Mean Corpuscular Volume 89, Mean Corpuscular Hemoglobin 30.5, Mean Corpuscular Hemoglobin Concent 34.1, Red Cell Distribution Width 12.8, Platelet Count 161, Mean Platelet Volume 6.8, Neutrophils (%) (Auto) , Lymphocytes (%) ( Auto) , Monocytes (%) (Auto) , Eosinophils (%) (Auto) , Basophils (%) (Auto) , Differential Total Cells Counted 100, Neutrophils % (Manual) 88H, Lymphocytes % (Manual) 9L, Monocytes % (Manual) 3, Eosinophils % (Manual) 0, Basophils % ( Manual) 0, Band Neutrophils 0, Platelet Estimate Adequate, Platelet Morphology Normal, Polychromasia 1+, Hypochromasia 1+, Sodium Level 139, Potassium Level 3.7, Chloride Level 103, Carbon Dioxide Level 27, Anion Gap 9, Blood Urea Nitrogen 31H, Creatinine 1.5H, Estimat Glomerular Filtration Rate 34.7, Glucose Level 93, Calcium Level 8.2L, Total Bilirubin 1.9H, Direct Bilirubin 0.6H, Aspartate Amino Transf (AST/SGOT) 228H, Alanine Aminotransferase (ALT/SGPT) 162H , Alkaline Phosphatase 122H, Total Protein 5.9L, Albumin 2.3L, Globulin 3.6, Albumin/Globulin Ratio 0.6L 04/11/19 08:30: White Blood Count 9.6, Red Blood Count 2.47L, Hemoglobin 7.5L, Hematocrit 21.9L , Mean Corpuscular Volume 89, Mean Corpuscular Hemoglobin 30.3, Mean Corpuscular Hemoglobin Concent 34.2, Red Cell Distribution Width 12.6, Platelet Count 176, Mean Platelet Volume 7.3, Neutrophils (%) (Auto) , Lymphocytes (%) ( Auto) , Monocytes (%) (Auto) , Eosinophils (%) (Auto) , Basophils (%) (Auto) , Differential Total Cells Counted 100, Neutrophils % (Manual) 81H, Lymphocytes % (Manual) 10L, Monocytes % (Manual) 9, Eosinophils % (Manual) 0, Basophils % ( Manual) 0, Band Neutrophils 0, Platelet Estimate Adequate, Platelet Morphology Normal, Polychromasia 1+, Hypochromasia 1+ Height (Feet): 5 Height (Inches): 1.00 Weight (Pounds): 96 Shona Holliday MD Apr 11, 2019 16:18
--- NOTE | 2019-04-11 17:15 | Consultation ---
DATE OF CONSULTATION: 04/11/2019 GASTROENTEROLOGY CONSULTATION CONSULTING PHYSICIAN: Shona Holliday M.D. CHIEF COMPLAINT: I was asked to see this patient by Dr. Sang Vieira for evaluation of abnormal liver tests. HISTORY OF PRESENT ILLNESS: The patient is a pleasant 68-year-old woman, who was admitted to the hospital due to high sugars and diabetic ketoacidosis. She was improving, but today she had a spike in her transaminases and bilirubin and also an elevation in her creatinine. Abdominal ultrasound was unremarkable. Therefore, this consultation was generated. The patient reportedly complained of some abdominal pain, but on my examination she actually denies any abdominal pain and she feels well. She has been tolerating oral diet. There has been no nausea or vomiting. PAST MEDICAL HISTORY: Remarkable for history of myocardial ischemia, diabetes with diabetic ketoacidosis, hypertension, hypertensive heart disease, osteoarthritis, seizures. FAMILY HISTORY: Noncontributory. SOCIAL HISTORY: The patient does not smoke and she denies any drinking alcohol. REVIEW OF SYSTEMS: Otherwise negative. PHYSICAL EXAMINATION: GENERAL: This is a pleasant woman, seen in her room. HEENT: Normocephalic and atraumatic. Sclerae anicteric. Oropharynx clear. NECK: Supple. CHEST: Clear to auscultation. CARDIOVASCULAR: Revealed regular rate. ABDOMEN: Soft, flat. Good bowel sounds. EXTREMITIES: Revealed no edema. LABORATORY DATA: Noted. ASSESSMENT: This patient has a sudden rise in her liver tests within a 48-hour period, but no clear apparent cause. The patient denies any symptoms to me, but apparently complained of some abdominal pain earlier and therefore passage of a biliary stone will be the most likely diagnosis. There was no stone seen on ultrasound, but given her presentation, I would perform an MRCP examination of bile ducts to ensure there was no remaining duct stones that would have to be treated. For the meantime, the patient's liver tests can be followed. RECOMMENDATIONS: 1. Follow liver tests. 2. Check hepatitis serologies for background disease. 3. Check MRCP. 4. PO diet as tolerated. Thank you for asking me to participate in the care of this patient. Shona Holliday M.D. DR: MEÑO JOB#: [id number] CC:
[2019-04-11 20:00] VITALS: BP 97/59
[2019-04-12] VITALS: BP 119/64
[2019-04-12 04:00] VITALS: BP 123/62
[2019-04-12] MEDS: Piperacillin/Tazobactam 3.375 GM in NS 110 ML IVPB SCH ×3 (05:45→21:29)
[2019-04-12] MEDS: NovoLOG Insulin Flexpen SUBQ SCH ×7 (06:16→20:13)
[2019-04-12 08:00] VITALS: BP 98/47
[2019-04-12 08:16] LABS: HEMATOCRIT 21.2 % (37.0-47.0); HEMOGLOBIN 7.2 G/DL (12.0-16.0); MEAN CORPUSCULAR VOLUME 90 FL (80-99); PLATELET COUNT 186 K/UL (150-450); RED BLOOD COUNT 2.37 M/UL (4.20-5.40); RED CELL DISTRIBUTION WIDTH 12.3 % (11.6-14.8); WHITE BLOOD COUNT 4.8 K/UL (4.8-10.8)
[2019-04-12 08:21] LABS: INR 0.9 (0.9-1.1)
--- NOTE | 2019-04-12 08:36 | Surgery Progress Note ---
Surgery Progress Note Subjective Additional Comments fevers resolved comfortable family at bedside able to ambulate no abd pain using restroom labs pending US noted MRCP ordered by GI Objective Last 24 Hour Vital Signs Date Time Temp Pulse Resp B/P (MAP) Pulse Ox O2 Delivery O2 Flow Rate FiO2 04/12/19 04:00 94 04/12/19 04:00 97.3 96 18 123/62 (82) 97 04/12/19 00:00 97.6 90 16 119/64 (82) 99 04/12/19 00:00 95 04/11/19 21:00 Room Air 04/11/19 20:00 97.9 83 16 97/59 (72) 96 04/11/19 20:00 86 04/11/19 16:00 98.1 91 20 115/54 (74) 98 04/11/19 15:46 91 04/11/19 12:00 99.0 91 19 97/52 (67) 98 04/11/19 11:52 90 04/11/19 09:00 Room Air 04/11/19 08:48 99.7 04/11/19 08:47 91/50 I&O Intake and Output 04/11/19 04/12/19 18:59 06:59 Intake Total 374.375 ml 477.5 ml Output Total 300 ml Balance 74.375 ml 477.5 ml Intake Oral 240 ml 240 ml IV Total 134.375 ml 237.5 ml Output Urine Total 300 ml # Voids 4 Cardiovascular: RSR Respiratory: clear Abdomen: soft, flat, non-tender, present bowel sounds Extremities: no edema Laboratory Tests Test 04/12/19 06:45 White Blood Count 4.8 K/UL (4.8-10.8) Red Blood Count 2.37 M/UL (4.20-5.40) L Hemoglobin 7.2 G/DL (12.0-16.0) L Hematocrit 21.2 % (37.0-47.0) L Mean Corpuscular Volume 90 FL (80-99) Mean Corpuscular Hemoglobin 30.4 PG (27.0-31.0) Mean Corpuscular Hemoglobin Concent 33.9 G/DL (32.0-36.0) Red Cell Distribution Width 12.3 % (11.6-14.8) Platelet Count 186 K/UL (150-450) Mean Platelet Volume 8.1 FL (6.5-10.1) Neutrophils (%) (Auto) % (45.0-75.0) Lymphocytes (%) (Auto) % (20.0-45.0) Monocytes (%) (Auto) % (1.0-10.0) Eosinophils (%) (Auto) % (0.0-3.0) Basophils (%) (Auto) % (0.0-2.0) Neutrophils % (Manual) Pending Lymphocytes % (Manual) Pending Platelet Estimate Pending Platelet Morphology Pending Erythrocyte Sedimentation Rate Pending Prothrombin Time 9.7 SEC (9.30-11.50) Prothromb Time International Ratio 0.9 (0.9-1.1) Activated Partial Thromboplast Time 32 SEC (23-33) Sodium Level Pending Potassium Level Pending Chloride Level Pending Carbon Dioxide Level Pending Blood Urea Nitrogen Pending Creatinine Pending Estimat Glomerular Filtration Rate Pending Glucose Level Pending Calcium Level Pending Iron Level Pending Unsaturated Iron Binding Pending Total Bilirubin Pending Aspartate Amino Transf (AST/SGOT) Pending Alanine Aminotransferase (ALT/SGPT) Pending Alkaline Phosphatase Pending C-Reactive Protein, Quantitative Pending Total Protein Pending Albumin Pending Globulin Pending Amylase Level Pending Lipase Pending Plan Problems: (1) Abdominal pain Assessment & Plan: 68-year-old female with recent abdominal discomfort mainly epigastric region, nausea, no emesis, fevers, abnormal LFTs. Will need further work-up prior to surgical recommendations US with The liver is unremarkable. Doppler interrogation of the main portal vein shows patency with hepatopedal, monophasic flow. There is no biliary ductal dilatation identified. Gallbladder is unremarkable. There is a trace right pleural effusion. There is also trace ascites. There demonstrated part of the pancreas, aorta and IVC show no definite abnormalities. pending MRCP Okay for diet given pain resolved Trend labs IV antibiotics Thank you for allowing me to participate in patient's care will follow with recommendations (2) Abnormal LFTs Assessment & Plan: Possible acute cholecystitis and potential choledocholithiasis with passage of stone currently pain resolved and patient improving continue as above pending MRCP US okay labs stable fevers resolved Eric Webster Apr 12, 2019 08:36
[2019-04-12] MEDS: Lisinopril 10mg tab ORAL SCH (09:00)
[2019-04-12 09:09] LABS: ALANINE AMINOTRANSFERASE 108 U/L (12-78); ALBUMIN 2.2 G/DL (3.4-5.0); ALBUMIN/GLOBULIN RATIO 0.6 (1.0-2.7); ALKALINE PHOSPHATASE 107 U/L (46-116); ANION GAP 7 mmol/L (5-15); ASPARTATE AMINO TRANSFERASE 74 U/L (15-37); BILIRUBIN,TOTAL 1.8 MG/DL (0.2-1.0); BLOOD UREA NITROGEN 31 mg/dL (7-18); CALCIUM 8.4 MG/DL (8.5-10.1); CARBON DIOXIDE 28 MMOL/L (21-32); CHLORIDE 103 MMOL/L (98-107); CREATININE 1.4 MG/DL (0.55-1.30); SODIUM 138 MMOL/L (136-145)
[2019-04-12] MEDS: levETIRAcetam 500mg/NS100ml 100 ML IVPB SCH ×2 (09:09→20:17)
[2019-04-12 09:10] LABS: BILIRUBIN,DIRECT 0.5 MG/DL (0.0-0.3)
[2019-04-12] MEDS: Levemir Flexpen SUBQ SCH ×2 (09:10→20:13)
[2019-04-12 09:21] LABS: % IRON SATURATION 26 % (15-50); IRON 52 ug/dL (50-175); TOTAL IRON BINDING CAPACITY 201 ug/dL (250-450)
--- NOTE | 2019-04-12 09:36 | General Progress Note ---
Assessment/Plan Problem List: (1) DKA (diabetic ketoacidoses) ICD Codes: E11.10 - Type 2 diabetes mellitus with ketoacidosis without coma SNOMED: 533115902, 55594293 Qualifiers: Qualified Codes: E13.10 - Other specified diabetes mellitus with ketoacidosis without coma (2) Altered mental state ICD Codes: R41.82 - Altered mental status, unspecified SNOMED: 399593424, 53732758 Qualifiers: Qualified Codes: R41.82 - Altered mental status, unspecified (3) New onset seizure ICD Codes: R56.9 - Unspecified convulsions SNOMED: 06525971, 53541396 Status: stable, progressing Assessment/Plan: stable monitor bs diabetes rx mrcp monitor lfts iv abx follow up cultures not stable for dc with fever Subjective ROS Limited/Unobtainable: No Constitutional: Reports: fever, malaise, weakness HEENT: Reports: no symptoms Cardiovascular: Reports: no symptoms Respiratory: Reports: no symptoms Gastrointestinal/Abdominal: Reports: no symptoms Genitourinary: Reports: no symptoms Neurologic/Psychiatric: Reports: no symptoms Endocrine: Reports: no symptoms Hematologic/Lymphatic: Reports: anemia Allergies: Coded Allergies: No Known Allergies (Unverified , 04/02/19) All Systems: reviewed and negative except above Subjective fevers. on abx. +UA. elevated lFTs- trending down. Abd US neg. no reports of bleeding GI and surgery appreciated Objective Last 24 Hour Vital Signs Date Time Temp Pulse Resp B/P (MAP) Pulse Ox O2 Delivery O2 Flow Rate FiO2 04/12/19 09:00 98/47 04/12/19 08:00 97.0 100 18 98/47 (64) 97 04/12/19 04:00 94 04/12/19 04:00 97.3 96 18 123/62 (82) 97 04/12/19 00:00 97.6 90 16 119/64 (82) 99 04/12/19 00:00 95 04/11/19 21:00 Room Air 04/11/19 20:00 97.9 83 16 97/59 (72) 96 04/11/19 20:00 86 04/11/19 16:00 98.1 91 20 115/54 (74) 98 04/11/19 15:46 91 04/11/19 12:00 99.0 91 19 97/52 (67) 98 04/11/19 11:52 90 Intake and Output 04/11/19 04/12/19 18:59 06:59 Intake Total 374.375 ml 477.5 ml Output Total 300 ml Balance 74.375 ml 477.5 ml Intake Oral 240 ml 240 ml IV Total 134.375 ml 237.5 ml Output Urine Total 300 ml # Voids 4 Laboratory Tests 04/12/19 06:45: White Blood Count 4.8, Red Blood Count 2.37L, Hemoglobin 7.2L, Hematocrit 21.2L , Mean Corpuscular Volume 90, Mean Corpuscular Hemoglobin 30.4, Mean Corpuscular Hemoglobin Concent 33.9, Red Cell Distribution Width 12.3, Platelet Count 186, Mean Platelet Volume 8.1, Neutrophils (%) (Auto) , Lymphocytes (%) ( Auto) , Monocytes (%) (Auto) , Eosinophils (%) (Auto) , Basophils (%) (Auto) , Neutrophils % (Manual) [Pending], Lymphocytes % (Manual) [Pending], Platelet Estimate [Pending], Platelet Morphology [Pending], Erythrocyte Sedimentation Rate [Pending], Prothrombin Time 9.7, Prothromb Time International Ratio 0.9, Activated Partial Thromboplast Time 32, Sodium Level 138, Potassium Level 3.0L, Chloride Level 103, Carbon Dioxide Level 28, Anion Gap 7, Blood Urea Nitrogen 31H, Creatinine 1.4H, Estimat Glomerular Filtration Rate 37.5, Glucose Level 341 #H, Calcium Level 8.4L, Iron Level 52, Total Iron Binding Capacity 201L, Percent Iron Saturation 26, Unsaturated Iron Binding 149, Total Bilirubin 1.8H, Direct Bilirubin 0.5H, Aspartate Amino Transf (AST/SGOT) 74H, Alanine Aminotransferase (ALT/SGPT) 108H, Alkaline Phosphatase 107, C-Reactive Protein, Quantitative 17.1H, Total Protein 6.0L, Albumin 2.2L, Globulin 3.8, Albumin/ Globulin Ratio 0.6L, Amylase Level 22L, Lipase 156 Height (Feet): 5 Height (Inches): 1.00 Weight (Pounds): 96 Objective General Appearance: WD/WN, alert Neck: supple Cardiovascular: normal rate, regular rhythm Respiratory/Chest: chest wall non-tender, lungs clear, normal breath sounds Abdomen: normal bowel sounds, non tender, soft, no organomegaly Edema: no edema noted Arm (L), no edema noted Arm (R), no edema noted Leg (L), no edema noted Leg (R), no edema noted Pedal (L), no edema noted Pedal (R), no edema noted 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
[2019-04-12 12:00] VITALS: BP 122/60
[2019-04-12 16:00] VITALS: BP 104/64
--- NOTE | 2019-04-12 18:27 | General Progress Note ---
Assessment/Plan Status: stable, progressing Assessment/Plan: Assessment - abrupt rise in LFT, declining, ? passes a stone - Anemia - OB (-) x 1 - cholelithiasis Recommendations - Follow LFT - MRCP pending - patient to decide on transfusion - message left with family to discuss prior GI w/u Subjective Allergies: Coded Allergies: No Known Allergies (Unverified , 04/02/19) Subjective Above noted tearful and anxious about blood transfusion d/w family at bedside Objective Last 24 Hour Vital Signs Date Time Temp Pulse Resp B/P (MAP) Pulse Ox O2 Delivery O2 Flow Rate FiO2 04/12/19 16:00 86 04/12/19 16:00 97.4 89 18 104/64 (77) 97 04/12/19 12:00 81 04/12/19 12:00 98.1 84 18 122/60 (80) 98 04/12/19 09:00 Room Air 04/12/19 09:00 98/47 04/12/19 08:00 97.0 100 18 98/47 (64) 97 04/12/19 08:00 90 04/12/19 04:00 94 04/12/19 04:00 97.3 96 18 123/62 (82) 97 04/12/19 00:00 97.6 90 16 119/64 (82) 99 04/12/19 00:00 95 04/11/19 21:00 Room Air 04/11/19 20:00 97.9 83 16 97/59 (72) 96 04/11/19 20:00 86 Intake and Output 04/11/19 04/12/19 19:00 07:00 Intake Total 374.375 ml 477.5 ml Output Total 300 ml Balance 74.375 ml 477.5 ml Intake Oral 240 ml 240 ml IV Total 134.375 ml 237.5 ml Output Urine Total 300 ml # Voids 4 Laboratory Tests 04/12/19 06:45: White Blood Count 4.8, Red Blood Count 2.37L, Hemoglobin 7.2L, Hematocrit 21.2L , Mean Corpuscular Volume 90, Mean Corpuscular Hemoglobin 30.4, Mean Corpuscular Hemoglobin Concent 33.9, Red Cell Distribution Width 12.3, Platelet Count 186, Mean Platelet Volume 8.1, Neutrophils (%) (Auto) , Lymphocytes (%) ( Auto) , Monocytes (%) (Auto) , Eosinophils (%) (Auto) , Basophils (%) (Auto) , Differential Total Cells Counted 100, Neutrophils % (Manual) 77H, Lymphocytes % (Manual) 16L, Monocytes % (Manual) 7, Eosinophils % (Manual) 0, Basophils % ( Manual) 0, Band Neutrophils 0, Platelet Estimate Adequate, Platelet Morphology Normal, Polychromasia 1+, Hypochromasia 1+, Erythrocyte Sedimentation Rate 111H , Prothrombin Time 9.7, Prothromb Time International Ratio 0.9, Activated Partial Thromboplast Time 32, Sodium Level 138, Potassium Level 3.0L, Chloride Level 103, Carbon Dioxide Level 28, Anion Gap 7, Blood Urea Nitrogen 31H, Creatinine 1.4H, Estimat Glomerular Filtration Rate 37.5, Glucose Level 341#H, Calcium Level 8.4L, Iron Level 52, Total Iron Binding Capacity 201L, Percent Iron Saturation 26, Unsaturated Iron Binding 149, Total Bilirubin 1.8H, Direct Bilirubin 0.5H, Aspartate Amino Transf (AST/SGOT) 74H, Alanine Aminotransferase (ALT/SGPT) 108H, Alkaline Phosphatase 107, C-Reactive Protein, Quantitative 17.1H, Total Protein 6.0L, Albumin 2.2L, Globulin 3.8, Albumin/Globulin Ratio 0.6L, Amylase Level 22L, Lipase 156 04/12/19 09:00: Stool Occult Blood [Pending] Height (Feet): 5 Height (Inches): 1.00 Weight (Pounds): 96 Objective Frail Latio woman NCAT Supple CTA RR abd soft ND no edema non focal Shona Holliday MD Apr 12, 2019 18:27
[2019-04-12 20:00] VITALS: BP 110/58
[2019-04-13] VITALS: BP 101/57
[2019-04-13 04:00] VITALS: BP 120/71
[2019-04-13] MEDS: Piperacillin/Tazobactam 3.375 GM in NS 110 ML IVPB SCH ×3 (05:45→22:04)
[2019-04-13] MEDS: NovoLOG Insulin Flexpen SUBQ SCH ×7 (05:47→21:18)
[2019-04-13 07:18] LABS: BASOPHILS % (AUTO) 0.6 % (0.0-2.0); EOSINOPHILS % (AUTO) 1.3 % (0.0-3.0); HEMATOCRIT 25.7 % (37.0-47.0); HEMOGLOBIN 8.8 G/DL (12.0-16.0); LYMPHOCYTES % (AUTO) 19.1 % (20.0-45.0); MEAN CORPUSCULAR VOLUME 89 FL (80-99); MONOCYTES % (AUTO) 5.3 % (1.0-10.0); NEUTROPHILS % (AUTO) 73.6 % (45.0-75.0); PLATELET COUNT 175 K/UL (150-450); RED BLOOD COUNT 2.87 M/UL (4.20-5.40); WHITE BLOOD COUNT 4.5 K/UL (4.8-10.8)
[2019-04-13 07:52] LABS: ALANINE AMINOTRANSFERASE 81 U/L (12-78); ALBUMIN 2.4 G/DL (3.4-5.0); ALBUMIN/GLOBULIN RATIO 0.6 (1.0-2.7); ALKALINE PHOSPHATASE 96 U/L (46-116); ASPARTATE AMINO TRANSFERASE 37 U/L (15-37); BILIRUBIN,TOTAL 1.1 MG/DL (0.2-1.0); BLOOD UREA NITROGEN 23 mg/dL (7-18); CALCIUM 8.7 MG/DL (8.5-10.1); CREATININE 1.1 MG/DL (0.55-1.30)
[2019-04-13 08:00] VITALS: BP 119/60
[2019-04-13 08:02] LABS: BILIRUBIN,DIRECT 0.2 MG/DL (0.0-0.3)
[2019-04-13 08:15] LABS: ANION GAP 12 mmol/L (5-15); CARBON DIOXIDE 23 MMOL/L (21-32); CHLORIDE 106 MMOL/L (98-107); POTASSIUM 3.7 MMOL/L (3.5-5.1); SODIUM 141 MMOL/L (136-145)
[2019-04-13] MEDS: Levemir Flexpen SUBQ SCH ×2 (09:00→21:19)
[2019-04-13] MEDS: levETIRAcetam 500mg/NS100ml 100 ML IVPB SCH ×2 (09:30→21:22)
[2019-04-13] MEDS: Lisinopril 10mg tab ORAL SCH (09:30)
[2019-04-13 09:41] LABS: BASOPHILS % (AUTO) 0.7 % (0.0-2.0); EOSINOPHILS % (AUTO) 1.4 % (0.0-3.0); HEMATOCRIT 24.3 % (37.0-47.0); HEMOGLOBIN 8.3 G/DL (12.0-16.0); LYMPHOCYTES % (AUTO) 16.2 % (20.0-45.0); MEAN CORPUSCULAR VOLUME 89 FL (80-99); MONOCYTES % (AUTO) 10.1 % (1.0-10.0); NEUTROPHILS % (AUTO) 71.6 % (45.0-75.0); PLATELET COUNT 171 K/UL (150-450); RED BLOOD COUNT 2.73 M/UL (4.20-5.40); RED CELL DISTRIBUTION WIDTH 11.8 % (11.6-14.8); WHITE BLOOD COUNT 6.3 K/UL (4.8-10.8)
[2019-04-13 09:51] LABS: ALANINE AMINOTRANSFERASE 71 U/L (12-78); ALBUMIN 2.3 G/DL (3.4-5.0); ALBUMIN/GLOBULIN RATIO 0.7 (1.0-2.7); ALKALINE PHOSPHATASE 86 U/L (46-116); ANION GAP 7 mmol/L (5-15); ASPARTATE AMINO TRANSFERASE 33 U/L (15-37); BILIRUBIN,TOTAL 0.9 MG/DL (0.2-1.0); BLOOD UREA NITROGEN 22 mg/dL (7-18); CALCIUM 8.7 MG/DL (8.5-10.1); CARBON DIOXIDE 26 MMOL/L (21-32); CHLORIDE 108 MMOL/L (98-107); CREATININE 1.1 MG/DL (0.55-1.30); POTASSIUM 3.8 MMOL/L (3.5-5.1); SODIUM 141 MMOL/L (136-145)
--- NOTE | 2019-04-13 10:11 | General Progress Note ---
Assessment/Plan Problem List: (1) DKA (diabetic ketoacidoses) ICD Codes: E11.10 - Type 2 diabetes mellitus with ketoacidosis without coma SNOMED: 922344993, [id number] Qualifiers: Qualified Codes: E13.10 - Other specified diabetes mellitus with ketoacidosis without coma (2) Altered mental state ICD Codes: R41.82 - Altered mental status, unspecified SNOMED: 995828038, 43735060 Qualifiers: Qualified Codes: R41.82 - Altered mental status, unspecified (3) New onset seizure ICD Codes: R56.9 - Unspecified convulsions SNOMED: 24005730, 95225493 Status: stable, progressing Assessment/Plan: stable monitor bs diabetes rx monitor lfts iv abx monitor h/h transfuse prn dc planning tomorrow if h/h stable. Subjective ROS Limited/Unobtainable: No Constitutional: Reports: malaise, weakness HEENT: Reports: no symptoms Cardiovascular: Reports: no symptoms Respiratory: Reports: no symptoms Gastrointestinal/Abdominal: Reports: no symptoms Genitourinary: Reports: no symptoms Neurologic/Psychiatric: Reports: anxiety, seizure Endocrine: Reports: no symptoms Hematologic/Lymphatic: Reports: anemia Allergies: Coded Allergies: No Known Allergies (Unverified , 04/02/19) All Systems: reviewed and negative except above Subjective no events. s/p1 unit. no signs of bleeding. no fevers. Ucx with ecoli- pansensitive no szs Objective Last 24 Hour Vital Signs Date Time Temp Pulse Resp B/P (MAP) Pulse Ox O2 Delivery O2 Flow Rate FiO2 04/13/19 09:30 119/60 04/13/19 08:00 98.2 89 16 119/60 (79) 100 04/13/19 04:00 97.7 93 16 120/71 (87) 100 04/13/19 04:00 91 04/13/19 00:00 97.7 90 16 101/57 (72) 99 04/13/19 00:00 89 04/12/19 21:00 Room Air 04/12/19 20:00 92 04/12/19 20:00 97.3 90 20 110/58 (75) 98 04/12/19 16:00 86 04/12/19 16:00 97.4 89 18 104/64 (77) 97 04/12/19 12:00 81 9/21/19 12:00 98.1 84 18 122/60 (80) 98 Intake and Output 04/12/19 04/13/19 18:59 06:59 Intake Total 360 ml Balance 360 ml Intake Oral 360 ml # Voids 3 3 # Bowel Movements 1 1 Laboratory Tests 04/13/19 06:37: White Blood Count 4.5L, Red Blood Count 2.87L, Hemoglobin 8.8L, Hematocrit 25.7L , Mean Corpuscular Volume 89, Mean Corpuscular Hemoglobin 30.6, Mean Corpuscular Hemoglobin Concent 34.2, Red Cell Distribution Width 12.0, Platelet Count 175, Mean Platelet Volume 8.0, Neutrophils (%) (Auto) 73.6, Lymphocytes (% ) (Auto) 19.1L, Monocytes (%) (Auto) 5.3, Eosinophils (%) (Auto) 1.3, Basophils (%) (Auto) 0.6, Sodium Level 141, Potassium Level 3.7, Chloride Level 106, Carbon Dioxide Level 23, Anion Gap 12, Blood Urea Nitrogen 23H, Creatinine 1.1, Estimat Glomerular Filtration Rate 49.6, Glucose Level 160#H, Calcium Level 8.7 , Total Bilirubin 1.1H, Direct Bilirubin 0.2, Aspartate Amino Transf (AST/SGOT) 37, Alanine Aminotransferase (ALT/SGPT) 81H, Alkaline Phosphatase 96, Total Protein 6.3L, Albumin 2.4L, Globulin 3.9, Albumin/Globulin Ratio 0.6L 04/13/19 09:05: White Blood Count 6.3, Red Blood Count 2.73L, Hemoglobin 8.3L, Hematocrit 24.3L , Mean Corpuscular Volume 89, Mean Corpuscular Hemoglobin 30.3, Mean Corpuscular Hemoglobin Concent 34.1, Red Cell Distribution Width 11.8, Platelet Count 171, Mean Platelet Volume 7.8, Neutrophils (%) (Auto) 71.6, Lymphocytes (% ) (Auto) 16.2L, Monocytes (%) (Auto) 10.1H, Eosinophils (%) (Auto) 1.4, Basophils (%) (Auto) 0.7, Sodium Level 141, Potassium Level 3.8, Chloride Level 108H, Carbon Dioxide Level 26, Anion Gap 7, Blood Urea Nitrogen 22H, Creatinine 1.1, Estimat Glomerular Filtration Rate 49.6, Glucose Level 65L, Calcium Level 8.7, Total Bilirubin 0.9, Aspartate Amino Transf (AST/SGOT) 33, Alanine Aminotransferase (ALT/SGPT) 71, Alkaline Phosphatase 86, Total Protein 5.8L, Albumin 2.3L, Globulin 3.5, Albumin/Globulin Ratio 0.7L Height (Feet): 5 Height (Inches): 1.00 Weight (Pounds): 98 Objective General Appearance: WD/WN, alert Neck: supple Cardiovascular: normal rate, regular rhythm Respiratory/Chest: chest wall non-tender, lungs clear, normal breath sounds Abdomen: normal bowel sounds, non tender, soft, no organomegaly Edema: no edema noted Arm (L), no edema noted Arm (R), no edema noted Leg (L), no edema noted Leg (R), no edema noted Pedal (L), no edema noted Pedal (R), no edema noted 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
[2019-04-13 12:00] VITALS: BP 101/68
--- NOTE | 2019-04-13 13:35 | Surgery Progress Note ---
Surgery Progress Note Subjective Additional Comments afebrile, HD stable, labs improved, lfts resolved states she feels so much better no pain. no complaints Objective Last 24 Hour Vital Signs Date Time Temp Pulse Resp B/P (MAP) Pulse Ox O2 Delivery O2 Flow Rate FiO2 04/13/19 12:00 97.5 86 18 101/68 (79) 99 04/13/19 09:30 119/60 04/13/19 09:00 Room Air 04/13/19 08:00 92 04/13/19 08:00 98.2 89 16 119/60 (79) 100 04/13/19 04:00 97.7 93 16 120/71 (87) 100 04/13/19 04:00 91 04/13/19 00:00 97.7 90 16 101/57 (72) 99 04/13/19 00:00 89 04/12/19 21:00 Room Air 04/12/19 20:00 92 04/12/19 20:00 97.3 90 20 110/58 (75) 98 04/12/19 16:00 86 04/12/19 16:00 97.4 89 18 104/64 (77) 97 I&O Intake and Output 04/12/19 04/13/19 18:59 06:59 Intake Total 360 ml Balance 360 ml Intake Oral 360 ml # Voids 3 3 # Bowel Movements 1 1 Cardiovascular: RSR Respiratory: clear Abdomen: soft, flat, non-tender, present bowel sounds Extremities: no cyanosis Laboratory Tests Test 04/13/19 06:37 04/13/19 09:05 White Blood Count 4.5 K/UL (4.8-10.8) L 6.3 K/UL (4.8-10.8) Red Blood Count 2.87 M/UL (4.20-5.40) L 2.73 M/UL (4.20-5.40) L Hemoglobin 8.8 G/DL (12.0-16.0) L 8.3 G/DL (12.0-16.0) L Hematocrit 25.7 % (37.0-47.0) L 24.3 % (37.0-47.0) L Mean Corpuscular Volume 89 FL (80-99) 89 FL (80-99) Mean Corpuscular Hemoglobin 30.6 PG (27.0-31.0) 30.3 PG (27.0-31.0) Mean Corpuscular Hemoglobin Concent 34.2 G/DL (32.0-36.0) 34.1 G/DL (32.0-36.0) Red Cell Distribution Width 12.0 % (11.6-14.8) 11.8 % (11.6-14.8) Platelet Count 175 K/UL (150-450) 171 K/UL (150-450) Mean Platelet Volume 8.0 FL (6.5-10.1) 7.8 FL (6.5-10.1) Neutrophils (%) (Auto) 73.6 % (45.0-75.0) 71.6 % (45.0-75.0) Lymphocytes (%) (Auto) 19.1 % (20.0-45.0) L 16.2 % (20.0-45.0) L Monocytes (%) (Auto) 5.3 % (1.0-10.0) 10.1 % (1.0-10.0) H Eosinophils (%) (Auto) 1.3 % (0.0-3.0) 1.4 % (0.0-3.0) Basophils (%) (Auto) 0.6 % (0.0-2.0) 0.7 % (0.0-2.0) Sodium Level 141 MMOL/L (136-145) 141 MMOL/L (136-145) Potassium Level 3.7 MMOL/L (3.5-5.1) 3.8 MMOL/L (3.5-5.1) Chloride Level 106 MMOL/L (98-107) 108 MMOL/L (98-107) H Carbon Dioxide Level 23 MMOL/L (21-32) 26 MMOL/L (21-32) Anion Gap 12 mmol/L (5-15) 7 mmol/L (5-15) Blood Urea Nitrogen 23 mg/dL (7-18) H 22 mg/dL (7-18) H Creatinine 1.1 MG/DL (0.55-1.30) 1.1 MG/DL (0.55-1.30) Estimat Glomerular Filtration Rate 49.6 mL/min (>60) 49.6 mL/min (>60) Glucose Level 160 MG/DL (74-106) #H 65 MG/DL (74-106) L Calcium Level 8.7 MG/DL (8.5-10.1) 8.7 MG/DL (8.5-10.1) Total Bilirubin 1.1 MG/DL (0.2-1.0) H 0.9 MG/DL (0.2-1.0) Direct Bilirubin 0.2 MG/DL (0.0-0.3) Aspartate Amino Transf (AST/SGOT) 37 U/L (15-37) 33 U/L (15-37) Alanine Aminotransferase (ALT/SGPT) 81 U/L (12-78) H 71 U/L (12-78) Alkaline Phosphatase 96 U/L (46-116) 86 U/L (46-116) Total Protein 6.3 G/DL (6.4-8.2) L 5.8 G/DL (6.4-8.2) L Albumin 2.4 G/DL (3.4-5.0) L 2.3 G/DL (3.4-5.0) L Globulin 3.9 g/dL 3.5 g/dL Albumin/Globulin Ratio 0.6 (1.0-2.7) L 0.7 (1.0-2.7) L Plan Problems: (1) Abdominal pain Assessment & Plan: 68-year-old female with recent abdominal discomfort mainly epigastric region, nausea, no emesis, fevers, abnormal LFTs. Will need further work-up prior to surgical recommendations US with The liver is unremarkable. Doppler interrogation of the main portal vein shows patency with hepatopedal, monophasic flow. There is no biliary ductal dilatation identified. Gallbladder is unremarkable. There is a trace right pleural effusion. There is also trace ascites. There demonstrated part of the pancreas, aorta and IVC show no definite abnormalities. pending MRCP Okay for diet given pain resolved Trend labs IV antibiotics Thank you for allowing me to participate in patient's care will follow with recommendations (2) Abnormal LFTs Assessment & Plan: Possible acute cholecystitis and potential choledocholithiasis with passage of stone currently pain resolved and patient improving continue as above pending MRCP US okay labs stable fevers resolved Eric Webster Apr 13, 2019 13:35
[2019-04-13] MEDS ORDERED: Tubing IV Secondary IV ONE (13:50)
[2019-04-13] MEDS ORDERED: NS 275ml ONE (13:50)
--- NOTE | 2019-04-13 15:16 | General Progress Note ---
Assessment/Plan Status: stable, progressing Assessment/Plan: Assessment - abrupt rise in LFT, now normal, ? passed a stone - Anemia - OB (-) x 1 Recommendations - Follow LFT - MRCP pending - PRN transfusion - Await callback from family to discuss prior GI w/u Subjective Allergies: Coded Allergies: No Known Allergies (Unverified , 04/02/19) Subjective Above noted no new complaints Objective Last 24 Hour Vital Signs Date Time Temp Pulse Resp B/P (MAP) Pulse Ox O2 Delivery O2 Flow Rate FiO2 04/13/19 12:00 97.5 86 18 101/68 (79) 99 04/13/19 12:00 85 04/13/19 09:30 119/60 04/13/19 09:00 Room Air 04/13/19 08:00 92 04/13/19 08:00 98.2 89 16 119/60 (79) 100 04/13/19 04:00 97.7 93 16 120/71 (87) 100 04/13/19 04:00 91 04/13/19 00:00 97.7 90 16 101/57 (72) 99 04/13/19 00:00 89 04/12/19 21:00 Room Air 04/12/19 20:00 92 04/12/19 20:00 97.3 90 20 110/58 (75) 98 04/12/19 16:00 86 04/12/19 16:00 97.4 89 18 104/64 (77) 97 Intake and Output 04/12/19 04/13/19 19:00 07:00 Intake Total 360 ml Balance 360 ml Intake Oral 360 ml # Voids 3 3 # Bowel Movements 1 1 Laboratory Tests 04/13/19 06:37: White Blood Count 4.5L, Red Blood Count 2.87L, Hemoglobin 8.8L, Hematocrit 25.7L , Mean Corpuscular Volume 89, Mean Corpuscular Hemoglobin 30.6, Mean Corpuscular Hemoglobin Concent 34.2, Red Cell Distribution Width 12.0, Platelet Count 175, Mean Platelet Volume 8.0, Neutrophils (%) (Auto) 73.6, Lymphocytes (% ) (Auto) 19.1L, Monocytes (%) (Auto) 5.3, Eosinophils (%) (Auto) 1.3, Basophils (%) (Auto) 0.6, Sodium Level 141, Potassium Level 3.7, Chloride Level 106, Carbon Dioxide Level 23, Anion Gap 12, Blood Urea Nitrogen 23H, Creatinine 1.1, Estimat Glomerular Filtration Rate 49.6, Glucose Level 160#H, Calcium Level 8.7 , Total Bilirubin 1.1H, Direct Bilirubin 0.2, Aspartate Amino Transf (AST/SGOT) 37, Alanine Aminotransferase (ALT/SGPT) 81H, Alkaline Phosphatase 96, Total Protein 6.3L, Albumin 2.4L, Globulin 3.9, Albumin/Globulin Ratio 0.6L 04/13/19 09:05: White Blood Count 6.3, Red Blood Count 2.73L, Hemoglobin 8.3L, Hematocrit 24.3L , Mean Corpuscular Volume 89, Mean Corpuscular Hemoglobin 30.3, Mean Corpuscular Hemoglobin Concent 34.1, Red Cell Distribution Width 11.8, Platelet Count 171, Mean Platelet Volume 7.8, Neutrophils (%) (Auto) 71.6, Lymphocytes (% ) (Auto) 16.2L, Monocytes (%) (Auto) 10.1H, Eosinophils (%) (Auto) 1.4, Basophils (%) (Auto) 0.7, Sodium Level 141, Potassium Level 3.8, Chloride Level 108H, Carbon Dioxide Level 26, Anion Gap 7, Blood Urea Nitrogen 22H, Creatinine 1.1, Estimat Glomerular Filtration Rate 49.6, Glucose Level 65L, Calcium Level 8.7, Total Bilirubin 0.9, Aspartate Amino Transf (AST/SGOT) 33, Alanine Aminotransferase (ALT/SGPT) 71, Alkaline Phosphatase 86, Total Protein 5.8L, Albumin 2.3L, Globulin 3.5, Albumin/Globulin Ratio 0.7L Height (Feet): 5 Height (Inches): 1.00 Weight (Pounds): 98 Objective Frail Latio woman NCAT Supple CTA RR abd soft ND no edema non focal Shona Holliday MD Apr 13, 2019 15:16
[2019-04-13 16:00] VITALS: BP 112/59
[2019-04-13] MEDS: metFORMIN 500mg tab ORAL SCH (17:16)
[2019-04-13 19:59] VITALS: BP 136/68
[2019-04-13] MEDS ORDERED: Hydrocortisone 0.5% Cream 30gm TOPIC PRN (22:00)
[2019-04-14] VITALS: BP 131/75
--- NOTE | 2019-04-14 01:45 | Progress Note ---
DATE: 04/13/2019 CARDIOLOGY PROGRESS NOTE SUBJECTIVE: The patient is status post one unit of packed red blood cells with no signs of bleeding. She is on antimicrobials for her urinary tract infection. Glucose parameters continue to improve. OBJECTIVE: VITAL SIGNS: Blood pressure 119/60, heart rate 89, and respiratory rate 16. LUNGS: Clear. CARDIAC: Regular. Normal S1 and S2 with a fourth heart sound. ABDOMEN: Soft. EXTREMITIES: No edema. IMPRESSION: 1. Status post DKA. 2. Anemia, status post transfusion. 3. Insulin-requiring diabetes mellitus with improving blood glucose control. 4. Hypotension, recovered. PLAN: 1. Followup hemoglobin. 2. Titrate insulin dose. 3. Low-dose ROSEANN inhibitor as tolerated by blood pressure. 4. Discharge planning. Mark Guevara M.D. DR: JARRETT JOB#: [id number] CC:
[2019-04-14 04:00] VITALS: BP 140/88
[2019-04-14] MEDS: NovoLOG Insulin Flexpen SUBQ SCH ×7 (06:30→22:17)
[2019-04-14] MEDS: metFORMIN 500mg tab ORAL SCH ×3 (06:30→17:29)
[2019-04-14] MEDS: Piperacillin/Tazobactam 3.375 GM in NS 110 ML IVPB SCH ×3 (06:46→22:15)
--- NOTE | 2019-04-14 06:55 | General Progress Note ---
Assessment/Plan Problem List: (1) New onset seizure ICD Codes: R56.9 - Unspecified convulsions SNOMED: 22283838, 44839980 (2) DKA (diabetic ketoacidoses) ICD Codes: E11.10 - Type 2 diabetes mellitus with ketoacidosis without coma SNOMED: 810119853, 06367616 Qualifiers: Qualified Codes: E13.10 - Other specified diabetes mellitus with ketoacidosis without coma (3) Altered mental state ICD Codes: R41.82 - Altered mental status, unspecified SNOMED: 378086435, 23413799 Qualifiers: Qualified Codes: R41.82 - Altered mental status, unspecified Status: stable, progressing Assessment/Plan: glucose still labile but overall improved she is NPO for MRCP today her diabetes requires to be treated with basal / bolus regimen after discharge - continue Levemir 20 units bid - continue Novolog 13 units ac tid - continue Metformin 500 mg tid - continue NISS ac / hs Subjective Allergies: Coded Allergies: No Known Allergies (Unverified , 04/02/19) All Systems: reviewed and negative except above Subjective events noted NPO for MRCP Item Value Date Time Bedside Blood Glucose 437 mg/dl H 04/13/19 2119 Bedside Blood Glucose 318 mg/dl H 04/13/19 1718 Bedside Blood Glucose 178 mg/dl H 04/13/19 1222 Bedside Blood Glucose 74 mg/dl 04/13/19 0900 Bedside Blood Glucose 275 mg/dl H 04/13/19 0547 Objective Last 24 Hour Vital Signs Date Time Temp Pulse Resp B/P (MAP) Pulse Ox O2 Delivery O2 Flow Rate FiO2 04/14/19 04:00 98.0 95 16 140/88 (105) 99 04/14/19 04:00 94 04/14/19 00:00 98 04/14/19 00:00 98.0 96 16 131/75 (93) 100 04/13/19 21:00 Room Air 04/13/19 20:00 96 04/13/19 19:59 97.8 90 18 136/68 (90) 99 04/13/19 16:00 87 04/13/19 16:00 97.1 81 18 112/59 (76) 97 04/13/19 12:00 97.5 86 18 101/68 (79) 99 04/13/19 12:00 85 04/13/19 09:30 119/60 04/13/19 09:00 Room Air 04/13/19 08:00 92 04/13/19 08:00 98.2 89 16 119/60 (79) 100 Intake and Output 04/13/19 04/14/19 19:00 07:00 Intake Total 500 ml 510 ml Output Total 300 ml Balance 500 ml 210 ml Intake Oral 500 ml 500 ml Other 10 ml Output Urine Total 300 ml # Voids 5 5 # Bowel Movements 1 2 Laboratory Tests 04/13/19 09:05: White Blood Count 6.3, Red Blood Count 2.73L, Hemoglobin 8.3L, Hematocrit 24.3L , Mean Corpuscular Volume 89, Mean Corpuscular Hemoglobin 30.3, Mean Corpuscular Hemoglobin Concent 34.1, Red Cell Distribution Width 11.8, Platelet Count 171, Mean Platelet Volume 7.8, Neutrophils (%) (Auto) 71.6, Lymphocytes (% ) (Auto) 16.2L, Monocytes (%) (Auto) 10.1H, Eosinophils (%) (Auto) 1.4, Basophils (%) (Auto) 0.7, Sodium Level 141, Potassium Level 3.8, Chloride Level 108H, Carbon Dioxide Level 26, Anion Gap 7, Blood Urea Nitrogen 22H, Creatinine 1.1, Estimat Glomerular Filtration Rate 49.6, Glucose Level 65L, Calcium Level 8.7, Total Bilirubin 0.9, Aspartate Amino Transf (AST/SGOT) 33, Alanine Aminotransferase (ALT/SGPT) 71, Alkaline Phosphatase 86, Total Protein 5.8L, Albumin 2.3L, Globulin 3.5, Albumin/Globulin Ratio 0.7L Height (Feet): 5 Height (Inches): 1.00 Weight (Pounds): 98 General Appearance: no apparent distress Neck: normal alignment Cardiovascular: normal rate Respiratory/Chest: lungs clear Abdomen: normal bowel sounds Objective Current Medications Medications (Trade) Dose Ordered Sig/Daja Route PRN Reason Start Time Stop Time Status Last Admin Dose Admin Acetaminophen (Tylenol) 650 mg Q4H PRN ORAL Mild Pain/Temp > 100.5 04/10/19 16:30 05/10/19 16:29 04/11/19 08:18 Artificial Tears (Akwa-Tears) 2 drop Q2H PRN BOTH EYES Dry Eyes 04/13/19 22:00 05/13/19 21:59 Dextrose (Dextrose 50%) 25 ml Q30M PRN IV Hypoglycemia 04/07/19 06:45 05/07/19 06:44 Dextrose (Dextrose 50%) 50 ml Q30M PRN IV Hypoglycemia 04/07/19 06:45 05/07/19 06:44 Hydrocortisone (Hydrocortisone) 1 applic EVERY 6 HOURS PRN TOPIC Itching 04/13/19 22:00 05/13/19 21:59 Insulin Aspart (NovoLOG) AC+HS SUBQ 04/05/19 06:30 05/03/19 16:59 04/13/19 21:18 Insulin Aspart (NovoLOG) 13 units NOVOTIAC SUBQ 04/11/19 11:50 05/07/19 06:44 04/13/19 17:17 Insulin Detemir (Levemir) 20 units Q12HR SUBQ 04/11/19 09:00 05/03/19 08:59 04/13/19 21:19 Levetiracetam 100 ml @ 400 mls/hr Q12HR IVPB 04/04/19 21:00 05/03/19 08:59 04/13/19 21:22 Lisinopril (Zestril) 10 mg DAILY ORAL 04/10/19 09:00 05/10/19 08:59 04/13/19 09:30 Metformin HCl (Glucophage) 500 mg TIAC ORAL 04/13/19 16:30 05/13/19 16:29 04/13/19 17:16 Pantoprazole (Protonix) 40 mg ACBREAKFAST ORAL 04/08/19 06:30 05/08/19 06:29 04/14/19 06:46 Piperacillin Sod/ Tazobactam Sod 3.375 gm/Sodium Chloride 110 ml @ 27.5 mls/hr EVERY 8 HOURS IVPB 04/10/19 22:00 04/15/19 21:59 04/14/19 06:46 Hernesto Byrne MD Apr 14, 2019 06:55
[2019-04-14 07:12] LABS: BASOPHILS % (AUTO) 0.6 % (0.0-2.0); EOSINOPHILS % (AUTO) 1.1 % (0.0-3.0); HEMATOCRIT 27.7 % (37.0-47.0); HEMOGLOBIN 9.3 G/DL (12.0-16.0); LYMPHOCYTES % (AUTO) 20.6 % (20.0-45.0); MEAN CORPUSCULAR VOLUME 90 FL (80-99); MONOCYTES % (AUTO) 6.1 % (1.0-10.0); NEUTROPHILS % (AUTO) 71.7 % (45.0-75.0); PLATELET COUNT 217 K/UL (150-450); RED BLOOD COUNT 3.08 M/UL (4.20-5.40); RED CELL DISTRIBUTION WIDTH 12.5 % (11.6-14.8); WHITE BLOOD COUNT 4.2 K/UL (4.8-10.8)
[2019-04-14 07:41] LABS: ALANINE AMINOTRANSFERASE 69 U/L (12-78); ALBUMIN 2.7 G/DL (3.4-5.0); ALBUMIN/GLOBULIN RATIO 0.7 (1.0-2.7); ALKALINE PHOSPHATASE 95 U/L (46-116); ANION GAP 9 mmol/L (5-15); ASPARTATE AMINO TRANSFERASE 24 U/L (15-37); BILIRUBIN,TOTAL 0.5 MG/DL (0.2-1.0); BLOOD UREA NITROGEN 19 mg/dL (7-18); CALCIUM 9.3 MG/DL (8.5-10.1); CARBON DIOXIDE 27 MMOL/L (21-32); CHLORIDE 107 MMOL/L (98-107); CREATININE 1.1 MG/DL (0.55-1.30); SODIUM 143 MMOL/L (136-145)
[2019-04-14 08:00] VITALS: BP 152/82
--- NOTE | 2019-04-14 08:55 | General Progress Note ---
Assessment/Plan Problem List: (1) DKA (diabetic ketoacidoses) ICD Codes: E11.10 - Type 2 diabetes mellitus with ketoacidosis without coma SNOMED: 528438501, 54567888 Qualifiers: Qualified Codes: E13.10 - Other specified diabetes mellitus with ketoacidosis without coma (2) Altered mental state ICD Codes: R41.82 - Altered mental status, unspecified SNOMED: 306863071, 29619796 Qualifiers: Qualified Codes: R41.82 - Altered mental status, unspecified (3) New onset seizure ICD Codes: R56.9 - Unspecified convulsions SNOMED: 50122145, 82023584 Status: stable, progressing Assessment/Plan: stable monitor bs diabetes rx monitor lfts iv abx monitor h/h transfuse prn mrcp dc planning Subjective ROS Limited/Unobtainable: No Constitutional: Reports: malaise, weakness HEENT: Reports: no symptoms Cardiovascular: Reports: no symptoms Respiratory: Reports: cough Gastrointestinal/Abdominal: Reports: no symptoms Genitourinary: Reports: no symptoms Neurologic/Psychiatric: Reports: seizure Endocrine: Reports: no symptoms Hematologic/Lymphatic: Reports: anemia Allergies: Coded Allergies: No Known Allergies (Unverified , 04/02/19) All Systems: reviewed and negative except above Subjective no events. npo for MRCP. no bleeding. h/h stable. on iv abx. alert. no reports of szs Objective Last 24 Hour Vital Signs Date Time Temp Pulse Resp B/P (MAP) Pulse Ox O2 Delivery O2 Flow Rate FiO2 04/14/19 04:00 98.0 95 16 140/88 (105) 99 04/14/19 04:00 94 04/14/19 00:00 98 04/14/19 00:00 98.0 96 16 131/75 (93) 100 04/13/19 21:00 Room Air 04/13/19 20:00 96 04/13/19 19:59 97.8 90 18 136/68 (90) 99 04/13/19 16:00 87 04/13/19 16:00 97.1 81 18 112/59 (76) 97 04/13/19 12:00 97.5 86 18 101/68 (79) 99 04/13/19 12:00 85 04/13/19 09:30 119/60 04/13/19 09:00 Room Air Intake and Output 04/13/19 04/14/19 19:00 07:00 Intake Total 500 ml 510 ml Output Total 300 ml Balance 500 ml 210 ml Intake Oral 500 ml 500 ml Other 10 ml Output Urine Total 300 ml # Voids 5 5 # Bowel Movements 1 2 Laboratory Tests 04/13/19 09:05: White Blood Count 6.3, Red Blood Count 2.73L, Hemoglobin 8.3L, Hematocrit 24.3L , Mean Corpuscular Volume 89, Mean Corpuscular Hemoglobin 30.3, Mean Corpuscular Hemoglobin Concent 34.1, Red Cell Distribution Width 11.8, Platelet Count 171, Mean Platelet Volume 7.8, Neutrophils (%) (Auto) 71.6, Lymphocytes (% ) (Auto) 16.2L, Monocytes (%) (Auto) 10.1H, Eosinophils (%) (Auto) 1.4, Basophils (%) (Auto) 0.7, Sodium Level 141, Potassium Level 3.8, Chloride Level 108H, Carbon Dioxide Level 26, Anion Gap 7, Blood Urea Nitrogen 22H, Creatinine 1.1, Estimat Glomerular Filtration Rate 49.6, Glucose Level 65L, Calcium Level 8.7, Total Bilirubin 0.9, Aspartate Amino Transf (AST/SGOT) 33, Alanine Aminotransferase (ALT/SGPT) 71, Alkaline Phosphatase 86, Total Protein 5.8L, Albumin 2.3L, Globulin 3.5, Albumin/Globulin Ratio 0.7L 04/14/19 06:40: White Blood Count 4.2L, Red Blood Count 3.08L, Hemoglobin 9.3L, Hematocrit 27.7L , Mean Corpuscular Volume 90, Mean Corpuscular Hemoglobin 30.0, Mean Corpuscular Hemoglobin Concent 33.4, Red Cell Distribution Width 12.5, Platelet Count 217, Mean Platelet Volume 7.8, Neutrophils (%) (Auto) 71.7, Lymphocytes (% ) (Auto) 20.6, Monocytes (%) (Auto) 6.1, Eosinophils (%) (Auto) 1.1, Basophils ( %) (Auto) 0.6, Sodium Level 143, Potassium Level 4.0, Chloride Level 107, Carbon Dioxide Level 27, Anion Gap 9, Blood Urea Nitrogen 19H, Creatinine 1.1, Estimat Glomerular Filtration Rate 49.6, Glucose Level 137H, Calcium Level 9.3, Total Bilirubin 0.5, Aspartate Amino Transf (AST/SGOT) 24, Alanine Aminotransferase (ALT/SGPT) 69, Alkaline Phosphatase 95, Total Protein 6.8, Albumin 2.7L, Globulin 4.1, Albumin/Globulin Ratio 0.7L Height (Feet): 5 Height (Inches): 1.00 Weight (Pounds): 98 Objective General Appearance: WD/WN, alert Neck: supple Cardiovascular: normal rate, regular rhythm Respiratory/Chest: chest wall non-tender, lungs clear, normal breath sounds Abdomen: normal bowel sounds, non tender, soft, no organomegaly Edema: no edema noted Arm (L), no edema noted Arm (R), no edema noted Leg (L), no edema noted Leg (R), no edema noted Pedal (L), no edema noted Pedal (R), no edema noted Generalized Neurologic: fraud representative II-XII grossly normal, alert Sang Vieira MD Apr 14, 2019 08:55
[2019-04-14] MEDS: Lisinopril 10mg tab ORAL SCH (09:52)
[2019-04-14] MEDS: levETIRAcetam 500mg/NS100ml 100 ML IVPB SCH ×2 (09:52→22:15)
[2019-04-14] MEDS: Levemir Flexpen SUBQ SCH ×2 (09:53→22:17)
[2019-04-14] MEDS ORDERED: HYDROCORTISONE 0.5% TOPIC PRN (10:15)
[2019-04-14 12:00] VITALS: BP 107/60
--- NOTE | 2019-04-14 12:47 | Surgery Progress Note ---
Surgery Progress Note Subjective Additional Comments Patient seen and examined bedside. States she is doing well. No pain. No complaints. Tolerating diet. Has bowel function. Is pending MRCP today Objective Last 24 Hour Vital Signs Date Time Temp Pulse Resp B/P (MAP) Pulse Ox O2 Delivery O2 Flow Rate FiO2 04/14/19 12:00 98.1 89 18 107/60 (76) 99 04/14/19 09:52 152/82 04/14/19 09:00 Room Air 04/14/19 08:00 97 04/14/19 08:00 96.5 97 16 152/82 (105) 98 04/14/19 04:00 98.0 95 16 140/88 (105) 99 04/14/19 04:00 94 04/14/19 00:00 98 04/14/19 00:00 98.0 96 16 131/75 (93) 100 04/13/19 21:00 Room Air 04/13/19 20:00 96 04/13/19 19:59 97.8 90 18 136/68 (90) 99 04/13/19 16:00 87 04/13/19 16:00 97.1 81 18 112/59 (76) 97 I&O Intake and Output 04/13/19 04/14/19 19:00 07:00 Intake Total 500 ml 510 ml Output Total 300 ml Balance 500 ml 210 ml Intake Oral 500 ml 500 ml Other 10 ml Output Urine Total 300 ml # Voids 5 5 # Bowel Movements 1 2 Cardiovascular: RSR Respiratory: clear Abdomen: soft, non-tender, present bowel sounds, non-distended Extremities: no edema, no tenderness, no cyanosis Laboratory Tests Test 04/14/19 06:40 White Blood Count 4.2 K/UL (4.8-10.8) L Red Blood Count 3.08 M/UL (4.20-5.40) L Hemoglobin 9.3 G/DL (12.0-16.0) L Hematocrit 27.7 % (37.0-47.0) L Mean Corpuscular Volume 90 FL (80-99) Mean Corpuscular Hemoglobin 30.0 PG (27.0-31.0) Mean Corpuscular Hemoglobin Concent 33.4 G/DL (32.0-36.0) Red Cell Distribution Width 12.5 % (11.6-14.8) Platelet Count 217 K/UL (150-450) Mean Platelet Volume 7.8 FL (6.5-10.1) Neutrophils (%) (Auto) 71.7 % (45.0-75.0) Lymphocytes (%) (Auto) 20.6 % (20.0-45.0) Monocytes (%) (Auto) 6.1 % (1.0-10.0) Eosinophils (%) (Auto) 1.1 % (0.0-3.0) Basophils (%) (Auto) 0.6 % (0.0-2.0) Sodium Level 143 MMOL/L (136-145) Potassium Level 4.0 MMOL/L (3.5-5.1) Chloride Level 107 MMOL/L (98-107) Carbon Dioxide Level 27 MMOL/L (21-32) Anion Gap 9 mmol/L (5-15) Blood Urea Nitrogen 19 mg/dL (7-18) H Creatinine 1.1 MG/DL (0.55-1.30) Estimat Glomerular Filtration Rate 49.6 mL/min (>60) Glucose Level 137 MG/DL (74-106) H Calcium Level 9.3 MG/DL (8.5-10.1) Total Bilirubin 0.5 MG/DL (0.2-1.0) Aspartate Amino Transf (AST/SGOT) 24 U/L (15-37) Alanine Aminotransferase (ALT/SGPT) 69 U/L (12-78) Alkaline Phosphatase 95 U/L (46-116) Total Protein 6.8 G/DL (6.4-8.2) Albumin 2.7 G/DL (3.4-5.0) L Globulin 4.1 g/dL Albumin/Globulin Ratio 0.7 (1.0-2.7) L Plan Problems: (1) Abdominal pain Assessment & Plan: 68-year-old female with recent abdominal discomfort mainly epigastric region, nausea, no emesis, fevers, abnormal LFTs. Will need further work-up prior to surgical recommendations US with The liver is unremarkable. Doppler interrogation of the main portal vein shows patency with hepatopedal, monophasic flow. There is no biliary ductal dilatation identified. Gallbladder is unremarkable. There is a trace right pleural effusion. There is also trace ascites. There demonstrated part of the pancreas, aorta and IVC show no definite abnormalities. pending MRCP Okay for diet given pain resolved Trend labs IV antibiotics Thank you for allowing me to participate in patient's care will follow with recommendations (2) Abnormal LFTs Assessment & Plan: Possible acute cholecystitis and potential choledocholithiasis with passage of stone currently pain resolved and patient improving continue as above pending MRCP US okay labs stable fevers resolved Additional Comments Okay for discharge planning from surgical standpoint Eric Webster Apr 14, 2019 12:47
--- NOTE | 2019-04-14 15:13 | Diagnostic Imaging Report ---
Indication: 68-year-old female with abdominal pain abnormal LFT Technique: MRI of the abdomen was performed in a 1.5 Alondra magnet. Pulse sequences obtained include coronal and axial T2 single shot fast spin echo breathhold and respiratory gated coronal T2 3-D M.R.C.P.; this data set was displayed in different projections or MIPs. In addition, multiple coronal oblique thin T2 weighted, fat saturated SE sequences obtained through the CBD. Comparison: None Findings: Trace bilateral pleural effusions are present. The gallbladder is unremarkable. There is no biliary ductal dilatation demonstrated. No evidence of choledocholithiasis. The visualized main pancreatic duct is unremarkable. There is no hydronephrosis or free fluid. There is suggestion of a small left renal cyst in the upper pole. There is no adrenal mass. There is a small hiatal hernia. IMPRESSION: Negative MRCP. Trace bilateral pleural effusions breathing motion
[2019-04-14 16:00] VITALS: BP 98/55
[2019-04-14 20:00] VITALS: BP 108/58
--- NOTE | 2019-04-14 22:45 | Progress Note ---
DATE: 04/14/2019 CARDIOLOGY PROGRESS NOTE SUBJECTIVE: The patient is status post , which was negative. No abdominal pain. No nausea or vomiting. Glucose range has been improving, but she has been NPO today for her procedure. OBJECTIVE: VITAL SIGNS: Blood pressure trending up. Vitals reviewed. Blood pressure 131/75, pulse rate 96, respiratory rate 16. LUNGS: Clear. CARDIAC: Regular. Normal S1, S2. ABDOMEN: Soft, nontender. EXTREMITIES: No edema. LABORATORY DATA: White count 4.2, hemoglobin 9.3. Sodium 143, potassium 4, bicarb 27, BUN 19, creatinine 1.1, glucose 137, albumin 2.7. Liver function test now normal. IMPRESSION: 1. Transaminitis, recovered. 2. Status post DKA. 3. Insulin-requiring diabetes with improved blood pressure. 4. Hypotension, resolved. 5. Hypertensive heart disease, now with stable blood pressure. 6. [id number] protein-calorie malnutrition, improving. PLAN: 1. Resume diet. 2. Optimize glucose control. 3. Discharge planning. 4. We will try to advance angiotensin-converting enzyme inhibitor if blood pressure can tolerate. Mark Guevara M.D. DR: CLAY JOB#: [id number] CC:
--- NOTE | 2019-04-14 22:46 | General Progress Note ---
Assessment/Plan Status: stable, progressing Assessment/Plan: Assessment - abrupt rise in LFT, now normal, ? passed a stone - Anemia - OB (-) x 2 Recommendations - push po - follow labs - son advised to bring pt to me for outpatient EGD/Colon Subjective Allergies: Coded Allergies: No Known Allergies (Unverified , 04/02/19) Subjective Above noted no new complaints d/w son at bedside MRCP negative OB (-) x 2, but etiology of anemia unclear advised son she needs outpatient EGD/Colon Objective Last 24 Hour Vital Signs Date Time Temp Pulse Resp B/P (MAP) Pulse Ox O2 Delivery O2 Flow Rate FiO2 04/14/19 16:00 96 04/14/19 16:00 97.8 97 18 98/55 (69) 100 04/14/19 12:00 98.1 89 18 107/60 (76) 99 04/14/19 11:54 88 04/14/19 09:52 152/82 04/14/19 09:00 Room Air 04/14/19 08:00 97 04/14/19 08:00 96.5 97 16 152/82 (105) 98 04/14/19 04:00 98.0 95 16 140/88 (105) 99 04/14/19 04:00 94 04/14/19 00:00 98 04/14/19 00:00 98.0 96 16 131/75 (93) 100 Intake and Output 04/13/19 04/14/19 19:00 07:00 Intake Total 500 ml 510 ml Output Total 300 ml Balance 500 ml 210 ml Intake Oral 500 ml 500 ml Other 10 ml Output Urine Total 300 ml # Voids 5 5 # Bowel Movements 1 2 Laboratory Tests 04/14/19 06:40: White Blood Count 4.2L, Red Blood Count 3.08L, Hemoglobin 9.3L, Hematocrit 27.7L , Mean Corpuscular Volume 90, Mean Corpuscular Hemoglobin 30.0, Mean Corpuscular Hemoglobin Concent 33.4, Red Cell Distribution Width 12.5, Platelet Count 217, Mean Platelet Volume 7.8, Neutrophils (%) (Auto) 71.7, Lymphocytes (% ) (Auto) 20.6, Monocytes (%) (Auto) 6.1, Eosinophils (%) (Auto) 1.1, Basophils ( %) (Auto) 0.6, Sodium Level 143, Potassium Level 4.0, Chloride Level 107, Carbon Dioxide Level 27, Anion Gap 9, Blood Urea Nitrogen 19H, Creatinine 1.1, Estimat Glomerular Filtration Rate 49.6, Glucose Level 137H, Calcium Level 9.3, Total Bilirubin 0.5, Aspartate Amino Transf (AST/SGOT) 24, Alanine Aminotransferase (ALT/SGPT) 69, Alkaline Phosphatase 95, Total Protein 6.8, Albumin 2.7L, Globulin 4.1, Albumin/Globulin Ratio 0.7L Height (Feet): 5 Height (Inches): 1.00 Weight (Pounds): 98 Objective Frail woman NCAT Supple CTA RR abd soft ND no edema non focal Shona Holliday MD Apr 14, 2019 22:46
[2019-04-15] VITALS: BP 110/59
[2019-04-15 04:00] VITALS: BP 131/65
--- NOTE | 2019-04-15 06:46 | General Progress Note ---
Assessment/Plan Problem List: (1) New onset seizure ICD Codes: R56.9 - Unspecified convulsions SNOMED: 91918886, 73558396 (2) DKA (diabetic ketoacidoses) ICD Codes: E11.10 - Type 2 diabetes mellitus with ketoacidosis without coma SNOMED: 898226103, 46249663 Qualifiers: Qualified Codes: E13.10 - Other specified diabetes mellitus with ketoacidosis without coma (3) Altered mental state ICD Codes: R41.82 - Altered mental status, unspecified SNOMED: 827053237, 61898133 Qualifiers: Qualified Codes: R41.82 - Altered mental status, unspecified Status: stable, progressing Assessment/Plan: fair glycemic control - insulin requirement has slightly decreased her diabetes requires to be treated with basal / bolus regimen after discharge - change Levemir 20 units bid to 24 units qhs - reduce Novolog to 10 units ac tid - continue Metformin 500 mg tid - continue NISS ac / hs Subjective Allergies: Coded Allergies: No Known Allergies (Unverified , 04/02/19) All Systems: reviewed and negative except above Subjective events noted MRCP was negative Item Value Date Time Bedside Blood Glucose 156 mg/dl H 04/15/19 0622 Bedside Blood Glucose 180 mg/dl H 04/14/19 2217 Bedside Blood Glucose 266 mg/dl H 04/14/19 1733 Bedside Blood Glucose 109 mg/dl 04/14/19 1150 Bedside Blood Glucose 127 mg/dl H 04/14/19 0953 Bedside Blood Glucose 134 mg/dl H 04/14/19 0652 Objective Last 24 Hour Vital Signs Date Time Temp Pulse Resp B/P (MAP) Pulse Ox O2 Delivery O2 Flow Rate FiO2 04/15/19 04:00 94 04/15/19 04:00 97.2 88 18 131/65 (87) 100 04/15/19 00:00 97.0 83 18 110/59 (76) 96 04/15/19 00:00 92 04/14/19 21:00 Room Air 04/14/19 20:00 96.6 86 19 108/58 (75) 97 04/14/19 20:00 92 04/14/19 16:00 96 04/14/19 16:00 97.8 97 18 98/55 (69) 100 04/14/19 12:00 98.1 89 18 107/60 (76) 99 04/14/19 11:54 88 04/14/19 09:52 152/82 04/14/19 09:00 Room Air 04/14/19 08:00 97 04/14/19 08:00 96.5 97 16 152/82 (105) 98 Intake and Output 04/14/19 04/15/19 19:00 07:00 Intake Total 500 ml Balance 500 ml Other 500 ml # Voids 3 # Bowel Movements 3 Height (Feet): 5 Height (Inches): 1.00 Weight (Pounds): 98 General Appearance: no apparent distress Neck: normal alignment Respiratory/Chest: lungs clear Abdomen: normal bowel sounds Pelvis: normal external exam Objective Current Medications Medications (Trade) Dose Ordered Sig/Daja Route PRN Reason Start Time Stop Time Status Last Admin Dose Admin Acetaminophen (Tylenol) 650 mg Q4H PRN ORAL Mild Pain/Temp > 100.5 04/10/19 16:30 05/10/19 16:29 04/11/19 08:18 Artificial Tears (Akwa-Tears) 2 drop Q2H PRN BOTH EYES Dry Eyes 04/13/19 22:00 05/13/19 21:59 Dextrose (Dextrose 50%) 25 ml Q30M PRN IV Hypoglycemia 04/07/19 06:45 05/07/19 06:44 Dextrose (Dextrose 50%) 50 ml Q30M PRN IV Hypoglycemia 04/07/19 06:45 05/07/19 06:44 Hydrocortisone (Hydrocortisone) 1 applic Q6H PRN TOPIC Itching 04/14/19 10:15 05/13/19 21:59 Insulin Aspart (NovoLOG) AC+HS SUBQ 04/05/19 06:30 05/03/19 16:59 04/14/19 22:17 Insulin Aspart (NovoLOG) 13 units NOVOTIAC SUBQ 04/11/19 11:50 05/07/19 06:44 04/14/19 17:33 Insulin Detemir (Levemir) 20 units Q12HR SUBQ 04/11/19 09:00 05/03/19 08:59 04/14/19 22:17 Levetiracetam 100 ml @ 400 mls/hr Q12HR IVPB 04/04/19 21:00 05/03/19 08:59 04/14/19 22:15 Lisinopril (Prinivil) 20 mg DAILY ORAL 04/15/19 09:00 05/15/19 08:59 Metformin HCl (Glucophage) 500 mg TIAC ORAL 04/13/19 16:30 05/13/19 16:29 04/14/19 17:29 Pantoprazole (Protonix) 40 mg ACBREAKFAST ORAL 04/08/19 06:30 05/08/19 06:29 04/14/19 06:46 Piperacillin Sod/ Tazobactam Sod 3.375 gm/Sodium Chloride 110 ml @ 27.5 mls/hr EVERY 8 HOURS IVPB 04/10/19 22:00 04/15/19 21:59 04/14/19 22:15 Hernesto Byrne MD Apr 15, 2019 06:46
[2019-04-15 06:53] LABS: BASOPHILS % (AUTO) 0.5 % (0.0-2.0); EOSINOPHILS % (AUTO) 1.2 % (0.0-3.0); HEMATOCRIT 29.7 % (37.0-47.0); LYMPHOCYTES % (AUTO) 24.7 % (20.0-45.0); MEAN CORPUSCULAR VOLUME 92 FL (80-99); MONOCYTES % (AUTO) 5.8 % (1.0-10.0); NEUTROPHILS % (AUTO) 67.9 % (45.0-75.0); PLATELET COUNT 263 K/UL (150-450); RED BLOOD COUNT 3.24 M/UL (4.20-5.40); RED CELL DISTRIBUTION WIDTH 13.1 % (11.6-14.8); WHITE BLOOD COUNT 4.9 K/UL (4.8-10.8)
[2019-04-15] MEDS: Piperacillin/Tazobactam 3.375 GM in NS 110 ML IVPB SCH ×2 (07:08→14:00)
[2019-04-15] MEDS: metFORMIN 500mg tab ORAL SCH ×2 (07:09→12:00)
[2019-04-15] MEDS: NovoLOG Insulin Flexpen SUBQ SCH ×2 (07:10→12:04)
[2019-04-15 07:27] LABS: ALANINE AMINOTRANSFERASE 69 U/L (12-78); ALBUMIN 3.3 G/DL (3.4-5.0); ALBUMIN/GLOBULIN RATIO 0.7 (1.0-2.7); ALKALINE PHOSPHATASE 107 U/L (46-116); ANION GAP 13 mmol/L (5-15); ASPARTATE AMINO TRANSFERASE 31 U/L (15-37); BILIRUBIN,TOTAL 0.6 MG/DL (0.2-1.0); BLOOD UREA NITROGEN 24 mg/dL (7-18); CALCIUM 9.6 MG/DL (8.5-10.1); CARBON DIOXIDE 25 MMOL/L (21-32); CHLORIDE 104 MMOL/L (98-107); CREATININE 1.3 MG/DL (0.55-1.30); POTASSIUM 3.4 MMOL/L (3.5-5.1); SODIUM 142 MMOL/L (136-145)
[2019-04-15 07:59] VITALS: BP 120/68
[2019-04-15] MEDS: levETIRAcetam 500mg/NS100ml 100 ML IVPB SCH (08:21)
[2019-04-15] MEDS ORDERED: NOVOLOG100 UNITS1 SUBQ (08:35)
[2019-04-15] MEDS ORDERED: PRINIVIL20 MG ORAL (08:35)
[2019-04-15] MEDS ORDERED: LEVEMIR FL100 UNIT/1 SUBQ (08:35)
[2019-04-15] MEDS ORDERED: PANTOPRAZOLE SO40 MG ORAL (08:35)
[2019-04-15] MEDS ORDERED: GLUCOPHAGE500 MG ORAL (08:35)
[2019-04-15] MEDS ORDERED: KEPPRA LIQ100 MG/1 M ORAL (08:35)
[2019-04-15] MEDS ORDERED: levETIRAcetam 500mg/5ml Liquid ORAL SCH (09:00)
[2019-04-15] MEDS ORDERED: Lisinopril 20mg tab ORAL SCH (09:00)
[2019-04-15] MEDS ORDERED: NovoLOG Insulin Flexpen SUBQ SCH (11:50)
[2019-04-15 12:00] VITALS: BP 133/71
--- NOTE | 2019-04-15 14:33 | Surgery Progress Note ---
Surgery Progress Note Subjective Symptoms: improved, tolerating diet, passing flatus Objective Last 24 Hour Vital Signs Date Time Temp Pulse Resp B/P (MAP) Pulse Ox O2 Delivery O2 Flow Rate FiO2 04/15/19 12:00 87 04/15/19 12:00 97.4 97 18 133/71 (91) 99 04/15/19 09:00 Room Air 04/15/19 08:21 120/68 04/15/19 08:00 95 04/15/19 07:59 97.7 98 18 120/68 (85) 98 04/15/19 04:00 94 04/15/19 04:00 97.2 88 18 131/65 (87) 100 04/15/19 00:00 97.0 83 18 110/59 (76) 96 04/15/19 00:00 92 04/14/19 21:00 Room Air 04/14/19 20:00 96.6 86 19 108/58 (75) 97 04/14/19 20:00 92 04/14/19 16:00 96 04/14/19 16:00 97.8 97 18 98/55 (69) 100 I&O Intake and Output 04/14/19 04/15/19 19:00 07:00 Intake Total 500 ml Balance 500 ml Other 500 ml # Voids 3 # Bowel Movements 3 Cardiovascular: RSR Respiratory: clear Abdomen: soft, flat, non-tender, present bowel sounds Extremities: no edema, no tenderness, no cyanosis Laboratory Tests Test 04/15/19 05:27 White Blood Count 4.9 K/UL (4.8-10.8) Red Blood Count 3.24 M/UL (4.20-5.40) L Hemoglobin 10.0 G/DL (12.0-16.0) L Hematocrit 29.7 % (37.0-47.0) L Mean Corpuscular Volume 92 FL (80-99) Mean Corpuscular Hemoglobin 30.8 PG (27.0-31.0) Mean Corpuscular Hemoglobin Concent 33.7 G/DL (32.0-36.0) Red Cell Distribution Width 13.1 % (11.6-14.8) Platelet Count 263 K/UL (150-450) Mean Platelet Volume 8.3 FL (6.5-10.1) Neutrophils (%) (Auto) 67.9 % (45.0-75.0) Lymphocytes (%) (Auto) 24.7 % (20.0-45.0) Monocytes (%) (Auto) 5.8 % (1.0-10.0) Eosinophils (%) (Auto) 1.2 % (0.0-3.0) Basophils (%) (Auto) 0.5 % (0.0-2.0) Sodium Level 142 MMOL/L (136-145) Potassium Level 3.4 MMOL/L (3.5-5.1) L Chloride Level 104 MMOL/L (98-107) Carbon Dioxide Level 25 MMOL/L (21-32) Anion Gap 13 mmol/L (5-15) Blood Urea Nitrogen 24 mg/dL (7-18) H Creatinine 1.3 MG/DL (0.55-1.30) Estimat Glomerular Filtration Rate 40.9 mL/min (>60) Glucose Level 103 MG/DL (74-106) Calcium Level 9.6 MG/DL (8.5-10.1) Total Bilirubin 0.6 MG/DL (0.2-1.0) Aspartate Amino Transf (AST/SGOT) 31 U/L (15-37) Alanine Aminotransferase (ALT/SGPT) 69 U/L (12-78) Alkaline Phosphatase 107 U/L (46-116) Total Protein 8.1 G/DL (6.4-8.2) Albumin 3.3 G/DL (3.4-5.0) L Globulin 4.8 g/dL Albumin/Globulin Ratio 0.7 (1.0-2.7) L Plan Problems: (1) Abdominal pain Assessment & Plan: 68-year-old female with recent abdominal discomfort mainly epigastric region, nausea, no emesis, fevers, abnormal LFTs. Will need further work-up prior to surgical recommendations US with The liver is unremarkable. Doppler interrogation of the main portal vein shows patency with hepatopedal, monophasic flow. There is no biliary ductal dilatation identified. Gallbladder is unremarkable. There is a trace right pleural effusion. There is also trace ascites. There demonstrated part of the pancreas, aorta and IVC show no definite abnormalities. pending MRCP Okay for diet given pain resolved Trend labs IV antibiotics Thank you for allowing me to participate in patient's care will follow with recommendations (2) Abnormal LFTs Assessment & Plan: Possible acute cholecystitis and potential choledocholithiasis with passage of stone currently pain resolved and patient improving continue as above pending MRCP US okay labs stable fevers resolved Additional Comments d/c planning Eric Webster Apr 15, 2019 14:33
--- NOTE | 2019-04-15 20:48 | General Progress Note ---
Assessment/Plan Status: stable, progressing Assessment/Plan: Assessment - abrupt rise in LFT, now normal, ? passed a stone - Anemia - OB (-) x 2 Recommendations - push po - follow labs - advised to see me for outpatient EGD/Colon Subjective Allergies: Coded Allergies: No Known Allergies (Unverified , 04/02/19) Subjective Above noted no new complaints eating well for discharge today advised son she needs outpatient EGD/Colon Objective Last 24 Hour Vital Signs Date Time Temp Pulse Resp B/P (MAP) Pulse Ox O2 Delivery O2 Flow Rate FiO2 04/15/19 12:00 87 04/15/19 12:00 97.4 97 18 133/71 (91) 99 04/15/19 09:00 Room Air 04/15/19 08:21 120/68 04/15/19 08:00 95 04/15/19 07:59 97.7 98 18 120/68 (85) 98 04/15/19 04:00 94 04/15/19 04:00 97.2 88 18 131/65 (87) 100 04/15/19 00:00 97.0 83 18 110/59 (76) 96 04/15/19 00:00 92 04/14/19 21:00 Room Air Intake and Output 04/14/19 04/15/19 18:59 06:59 Intake Total 500 ml Balance 500 ml Other 500 ml # Voids 3 # Bowel Movements 3 Laboratory Tests 04/15/19 05:27: White Blood Count 4.9, Red Blood Count 3.24L, Hemoglobin 10.0L, Hematocrit 29.7L , Mean Corpuscular Volume 92, Mean Corpuscular Hemoglobin 30.8, Mean Corpuscular Hemoglobin Concent 33.7, Red Cell Distribution Width 13.1, Platelet Count 263, Mean Platelet Volume 8.3, Neutrophils (%) (Auto) 67.9, Lymphocytes (% ) (Auto) 24.7, Monocytes (%) (Auto) 5.8, Eosinophils (%) (Auto) 1.2, Basophils ( %) (Auto) 0.5, Sodium Level 142, Potassium Level 3.4L, Chloride Level 104, Carbon Dioxide Level 25, Anion Gap 13, Blood Urea Nitrogen 24H, Creatinine 1.3, Estimat Glomerular Filtration Rate 40.9, Glucose Level 103, Calcium Level 9.6, Total Bilirubin 0.6, Aspartate Amino Transf (AST/SGOT) 31, Alanine Aminotransferase (ALT/SGPT) 69, Alkaline Phosphatase 107, Total Protein 8.1, Albumin 3.3L, Globulin 4.8, Albumin/Globulin Ratio 0.7L Height (Feet): 5 Height (Inches): 1.00 Weight (Pounds): 98 Objective Frail woman NCAT Supple CTA RR abd soft ND no edema non focal Shona Holliday MD Apr 15, 2019 20:48
[2019-04-15] MEDS ORDERED: Levemir Flexpen SUBQ SCH (21:00)
--- NOTE | 2019-04-16 00:30 | Discharge Summary ---
DATE OF ADMISSION: 04/02/2019 DATE OF DISCHARGE: 04/15/2019 ADMISSION DIAGNOSES: 1. Altered mental status. 2. Seizure disorder. 3. Diabetic ketoacidosis. 4. Hypertension. DISCHARGE DIAGNOSES: 1. Altered mental status. 2. Seizure disorder. 3. Diabetic ketoacidosis. 4. Hypertension. 5. Anemia status post transfusion. 6. Sepsis and UTI. HOSPITAL COURSE: The patient is a pleasant female, who is admitted with complaints of diabetic ketoacidosis and seizures. She has been noncompliant with medications at home. She was initially in the intensive care unit where she was started on insulin drip and Cardiology consultations were obtained. The patient was weaned off insulin drip and started on bolus basal insulin. Hospital course was complicated by sepsis secondary to UTI as well as anemia requiring transfusions. Anemia was thought to be likely secondary to chronic disease. The patient received IV antibiotics for UTI and on discharge was stable. She will be discharged home with outpatient followup. DISCHARGE MEDICATIONS: Please see discharge medication list for discharge medications. DIET: Diabetic and cardiac. ACTIVITIES: Ad-nimo. FOLLOWUP: The patient will follow up in one to two weeks in the office. Sang Vieira M.D. DR: BRITTNY JOB#: [id number] CC:
--- NOTE | 2019-04-16 01:15 | Progress Note ---
DATE: 04/15/2019 CARDIOLOGY PROGRESS NOTE SUBJECTIVE: Stool occult blood is negative. Hemoglobin has remained stable following transfusions. Glucose control improved. Blood pressure is stable on increased dose of angiotensin-converting enzyme inhibitor. OBJECTIVE: NECK: Supple. LUNGS: Clear. CARDIAC: Regular. Normal S1, S2. ABDOMEN: Soft. EXTREMITIES: No edema. LABORATORY DATA: Reviewed. IMPRESSION: 1. Stable for outpatient followup. 2. Discharge medication regimen reviewed and reconciled. 3. Outpatient Cardiology followup arranged. Mark Guevara M.D. DR: JOHANN JOB#: [id number] CC:
== END 2019-04-15 13:35 | disposition home health service (06) | DRG 420 ==
LOC: EDBD 21:27 → EMR 21:55 → EDBEDREQ 21:59 → ICU 22:50 → EDBEDREQSVC 23:14 → EDBEDREQ 04-03 01:44 → 2E 04-04 17:10
DX: E11.10 Type 2 diabetes mellitus with ketoacidosis without coma (principal); I24.9 Acute ischemic heart disease, unspecified; E11.65 Type 2 diabetes mellitus with hyperglycemia; Z91.14 Patient's other noncompliance with medication regimen; R56.9 Unspecified convulsions; I11.9 Hypertensive heart disease without heart failure; I25.9 Chronic ischemic heart disease, unspecified; E87.1 Hypo-osmolality and hyponatremia; E86.0 Dehydration; E87.6 Hypokalemia; E43 Unspecified severe protein-calorie malnutrition; Z68.1 Body mass index [BMI] 19.9 or less, adult; G93.41 Metabolic encephalopathy; R79.89 Other specified abnormal findings of blood chemistry; K80.42 Calculus of bile duct with acute cholecystitis without obstruction; A41.9 Sepsis, unspecified organism; N39.0 Urinary tract infection, site not specified; D64.9 Anemia, unspecified; I95.9 Hypotension, unspecified
CPT/HCPCS: 36415; 36600; 70450; 71045; 74181; 76700; 80048; 80053; 81003; 82009; 82150; 82248; 82270; 82550; 82553; 82803; 82962; 83036; 83540; 83550; 83605; 83690; 83735; 83880; 84443; 84484; 85007; 85025; 85610; 85651; 85730; 86140; 86705; 86709; 86803; 86850; 86900; 86901; 86920; 87040; 87081; 87086; 87181; 87324; 87340; 93005; 93306; 93970; 95819; 96361; 96374; 96375; 99291; 99292; J1815; J8499; S5561